=== PATIENT | female | born 1945 | race Hispanic/Latino ===

== ENCOUNTER 2017-03-02 08:19 | Inpatient (IN) | payer MEDICARE, MEDICAID ==
[~2017-03-02 08:19] MED LIST: Iopamidol 370 76% 100 ML VIAL ONE
[2017-03-02] MEDS ORDERED: Heparin 1000 UNIT/NS 500ML(OR) 1,000 ML ONE (08:30)
[2017-03-02 08:41] LABS: #Basophils 0.1 thou/uL (0.0-0.2); #Eosinphils 0.1 thou/uL (0.0-0.7); #Monocytes 0.9 thou/uL (0.11-0.59); #Neutrophils 14.2 thou/uL (1.40-6.50); %Basophils 0.4 % (0.0-1.0); %Eosinophils 0.6 % (0.0-10.0); %Lymphocytes 11.6 % (21.0-51.0); %Monocytes 5.4 % (0.0-10.0); Hematocrit 25.3 % (36.0-47.0); Mean Platelet Volume 8.2 fL (7.4-10.4); Red Blood Cell (RBC) Count 2.61 mill/uL (4.20-5.40); White Blood Cell (WBC) Count 17.4 thou/uL (4.8-10.8)
[2017-03-02] MEDS ORDERED: DOPamine 400 MG/D5W 250 ML 250 ML ONE (08:52)
[2017-03-02] MEDS ORDERED: Heparin 10,000 UNITS/1 ML VIAL ONE ×2 (08:52→09:53)
[2017-03-02] MEDS ORDERED: Heparin 1000 UNIT/NS 500ML(OR) 500 ML ONE (08:56)
[2017-03-02 09:07] LABS: ALT (SGPT) 9 U/L (8-55); AST (SGOT) 12 U/L (5-34); Alkaline Phosphatase 107 U/L (40-150); Anion Gap 19 mmol/L (10-20); BUN (Urea Nitrogen) 39 mg/dL (9.8-20.1); Bilirubin, Total 0.4 mg/dL (0.2-1.2); CK (CPK) 43 U/L (29-168); Calc. Creatinine Clearance 0 mL/min (70-130); Calcium 7.9 mg/dL (7.8-10.44); Carbon Dioxide 18 mmol/L (23-31); Chloride 107 mmol/L (98-107); Estimated GFR-MDRD 3; Globulin 2.4 g/dL (2.4-3.5); Protein, Total 5.1 g/dL (6.0-8.3)
[2017-03-02 09:11] LABS: Troponin I 0.098 ng/mL (< 0.028)
[2017-03-02] MEDS ORDERED: Aggrastat 12.5 MG/250 ML 250 ML ONE (09:12)
[2017-03-02] MEDS ORDERED: Clopidogrel Bisulfate 300 MG TAB ONE ×2 (09:16→10:04)
[2017-03-02] MEDS ORDERED: Ondansetron HCl/PF 4 MG/2 ML Vial ONE (09:27)
[2017-03-02] MEDS ORDERED: Morphine PF 1 MG/ML SYR IVP PRN (10:08)
[2017-03-02] MEDS ORDERED: Aggrastat 12.5 MG/250 ML 250 ML IVPB SCH (10:15)
[2017-03-02] MEDS ORDERED: DOPamine 400 MG/D5W 250 ML 250 ML IVPB SCH (10:30)
[2017-03-02] MEDS ORDERED: Insulin Regular 300 UNITS/3 ML VIAL SC PRN ×2 (11:13)
[2017-03-02] MEDS ORDERED: Dextrose 5% in Water 1,000 ML IV PRN (11:13)
[2017-03-02] MEDS ORDERED: Dextrose 50% Abboject 50 ML SYRINGE SLOW IVP PRN (11:13)
[2017-03-02] MEDS ORDERED: Clopidogrel Bisulfate 300 MG TAB PO SCH (12:00)
[2017-03-02] MEDS ORDERED: Metoprolol Tartrate 25 MG TAB PO SCH (13:00)
--- NOTE | 2017-03-02 14:07 | HP ---
HISTORY: [place] Schroeder is a 71-year-old female with end-stage renal disease on home peritoneal dialysis. She denies any previous cardiac problems or chest discomfort. This morning at 5:00 a.m., she got up to go to the bathroom and had onset of severe crushing left-sided chest pressure associated with diaphoresis, nausea, and vomiting, but no shortness of breath. Ultimately, she called paramedics and was found to have changes consistent with STEMI and has been transferred from [place] where she lives to [place]. En route, she was given 3600 units of heparin, aspirin 324 mg and a total of 3 liters of fluid due to hypotension. PAST MEDICAL HISTORY: Hypertension, diabetes, hypercholesterolemia, although she is on no cholesterol medicines that she can recall, diabetic gastroparesis, history of gluten intolerance, history of herpes zoster, prior CVA, cholecystectomy, and partial hysterectomy. MEDICATIONS: Glipizide 5 mg q.a.m., Renvela 3200 mg t.i.d., sertraline 100 daily, metoprolol 100 mg t.i.d., Sensipar 60 mg daily, Aspirin 81 qd. ALLERGIES: None. SOCIAL HISTORY: She does not smoke or drink. FAMILY HISTORY: She denies any history of coronary artery disease. REVIEW OF SYSTEMS: Twelve-point review of systems was otherwise unremarkable. PHYSICAL EXAMINATION: VITAL SIGNS: Blood pressure 110/70, pulse of 80. HEENT: PERRL. NECK: Supple. LUNGS: Chest is clear. CARDIAC: S1 and S2 are normal, without any S3, S4 or murmurs. Carotid upstrokes normal, without bruits. ABDOMEN: Normal bowel sounds, without tenderness or organomegaly. EXTREMITIES: Revealed no clubbing, cyanosis or edema. NEUROLOGIC: Grossly intact. SKIN: Warm and dry. LABORATORY DATA: EKG reveals sinus bradycardia with 2-[address] segment elevation in II, III, AVF, as well as [address] elevation in V4-V6. There is ST segment depression, downsloping ST segments in I, aVL and V2. Hemoglobin 8.3 , hematocrit 25.3, white count 17,400, platelets 259,000. Sodium 141, potassium 2.9, chloride 107, carbon dioxide 18, BUN 39, creatinine 13.13. Initial troponin I 0.098. IMPRESSION: 1. Inferoposterior lateral ST elevation myocardial infarction. 2. End-stage renal disease, patient received 3 liters of intravenous saline on the way to the hospital. 3. Hypertension. 4. Hypercholesterolemia. 5. History of cerebrovascular accident. PLAN: The situation was discussed with the patient. It was recommended that she undergo emergent catheterization. Risks of this were discussed including , myocardial infarction, dye reaction, vascular injury, CVA, transfusion, limb loss, renal failure, vascular injury, etc. Risks of stent placement were discussed including , myocardial infarction, emergent CABG, restenosis, stent thrombosis, vessel perforation, etc. Initially thought was given to placing a drug-eluting stent; however, patient has left main disease and will need to undergo bypass surgery and therefore in the labor and delivery registered nurse the decision was made to place a bare metal stent. CLAU
[2017-03-02] MEDS ORDERED: Potassium Chloride 10 MEQ TAB PO SCH ×2 (14:15→17:00)
--- NOTE | 2017-03-02 15:03 | RAD ---
CHEST 1 VIEW: HISTORY: Chest pain. FINDINGS: Cardiac silhouette is magnified by projection. Pulmonary vasculature is unremarkable. Mediastinum i s midline with aortic calcification. There is no lobar consolidation or evidence of pneumothorax. C ardiac monitor leads overlie the chest. IMPRESSION: Atherosclerosis. No acute cardiopulmonary abnormalities are demonstrated. POS: H
[2017-03-02 15:15] LABS: Troponin I 243.035 ng/mL (< 0.028)
[2017-03-02] MEDS ORDERED: Ondansetron ODT 4 MG TAB PO PRN (17:54)
[2017-03-02] MEDS: Ondansetron HCl/PF 4 MG/2 ML Vial IVP PRN (17:59)
--- NOTE | 2017-03-02 19:05 | PDOC.PN ---
- Subjective Encounter Start Date: 03/02/17 Encounter Start Time: 12:00 -: old records requested/rev Patient seen and examined. Consult for medical mngt. No CP/SOB. on PD per Dr Mercer. - Objective MAR Reviewed: Yes Vital Signs & Weight: Vital Signs (12 hours) Temp Pulse Resp Pulse Ox 03/02/17 16:00 98.9 F 03/02/17 12:00 98.7 F 03/02/17 10:53 97.9 F 85 18 96 Most Recent Monitor Data Heart Rate from ECG 61 NIBP 96/40 NIBP BP-Mean 53 Respiration from ECG 19 SpO2 100 I&O: 03/01/17 03/02/17 03/03/17 06:59 06:59 06:59 Intake Total 730 Balance 730 Result Diagrams: 03/03/17 02:22 03/03/17 02:22 Additional Labs: Accuchecks 03/02/17 03/02/17 17:02 11:38 POC Glucose 118 H 192 H Radiology Reviewed by me: Yes (CXR - no edema/infiltrate) EKG Reviewed by me: Yes (Tele SR) Phys Exam - Physical Examination Constitutional: NAD Neck: no nodes, no JVD Respiratory: no wheezing, no rales, no rhonchi, clear to auscultation bilateral Cardiovascular: RRR, no rub no heaves/pulsations Gastrointestinal: soft, non-tender, positive bowel sounds Musculoskeletal: no edema Neurological: non-focal, moves all 4 limbs Psychiatric: normal affect, A&O x 3 Dx/Plan - Plan DVT proph w/SCDs IMPRESSION 1. CAD s/p PR - on dual antiplatelet therapy/dopamine. Cardiology following 2. ESRD on PD - Dr Mercer aware, PD tonight 3. Hypokalemia 4. Hypotension/Cardiogenic shock from PR - on Dopamine 5. DM2 with diabetic gastroparesis. 6. h/o CVA - no residual deficits 7. HTN PLAN: * Nephrology consulted * CV consulted * Betablockers on hold due to hypotension * Replace Potassium * Add sliding scale * Add Zofran for N/V * Cont other meds as below * Full code. DPOA - family * Will follow. Thank you for this consultation. Review of Systems - Review of Systems Respiratory: negative: Cough, Dry, Shortness of Breath, Hemoptysis, SOB with Excertion, Pleuritic Pain, Sputum, Wheezing Cardiovascular: negative: Chest Pain, Palpitations, Orthopnea, Paroxysmal Noc. Dyspnea, Edema, Light Headedness Gastrointestinal: Nausea. negative: Vomiting, Abdominal Pain, Diarrhea, Constipation, Melena, Hematochezia - Medications/Allergies Allergies/Adverse Reactions: Allergies Allergy/AdvReac Type Severity Reaction Status Date / Time No Known Allergies Allergy Verified 08/01/16 21:37 Medications: Current Medications Aspirin (Aspirin Chewable) 81 mg PO DAILY [facility] Cinacalcet (Sensipar) 60 mg PO DAILY [facility] Clopidogrel Bisulfate (Plavix) 75 mg PO DAILY [facility] Dextrose/Water (Dextrose 50%) 25 gm SLOW IVP PRN PRN PRN Reason: Hypoglycemia Glucagon (Glucagon) 1 mg IM PRN PRN PRN Reason: Hypoglycemia Tirofiban/Sodium Chloride (Aggrastat 12.5 Mg/250 Ml) 250 mls @ 0 mls/hr IVPB INF DESIREE; As Directed PRN Reason: Protocol Stop: 03/03/17 09:00 Dopamine HCl/Dextrose (Dopamine/D5w) 250 mls @ 6.019 mls/hr IVPB INF DESIREE; 2.5 MCG/KG/MIN PRN Reason: Protocol Dextrose/Water (D5w) 1,000 mls @ 0 mls/hr IV .Q0M PRN; As Directed PRN Reason: Hypoglycemia Insulin Human Regular (Humulin R) 0 units SC .MILD SLIDING SCALE PRN PRN Reason: Mild Correctional Scale Insulin Human Regular (Humulin R) 0 units SC .BEDTIME SLIDING SC PRN PRN Reason: Bedtime Correctional Scale Metoprolol Tartrate (Lopressor) 50 mg PO BID [facility] Morphine Sulfate (Duramorph) 2 mg IVP Q4H PRN PRN Reason: Moderate Pain (4-6) Last Admin: 03/02/17 15:51 Dose: 2 mg Ondansetron HCl (Zofran Odt) 4 mg PO Q6H PRN PRN Reason: Nausea/Vomiting Ondansetron HCl (Zofran) 4 mg IVP Q6H PRN PRN Reason: Nausea/Vomiting Last Admin: 03/02/17 17:59 Dose: 4 mg Potassium Chloride (Klor-Con 10) 10 meq PO BID[facility] Stop: 03/04/17 17:01 Last Admin: 03/02/17 17:51 Dose: 10 meq Sertraline HCl (Zoloft) 100 mg PO DAILY [facility] Sodium Chloride (Flush - Normal Saline) 10 ml IVF Q12HR [facility] Sodium Chloride (Flush - Normal Saline) 10 ml IVF PRN PRN PRN Reason: Saline Flush
--- NOTE | 2017-03-02 20:53 | CON ---
DATE OF CONSULTATION: 03/02/2017 HISTORY OF PRESENT ILLNESS: This is a pleasant 71-year-old female who had the onset of chest discomf ort about 5:00 this morning. She states that the ambulance picked her up about 7:00 a.m. and she was brought straight to the landscape laborer where she was found to have a complete occlusion of the mid right c oronary artery and underwent extensive stenting of the main right coronary artery with bare metal shakeel nt. Residual included posterolateral with occlusion and a PDA with a high-grade stenosis. She was f ound to have an ostial left main with relatively normal coronary anatomy otherwise. PAST MEDICAL HISTORY: Diabetes mellitus, end-stage renal disease, hypertension and dyslipidemia. PAST SURGICAL HISTORY: Peritoneal dialysis catheter placement, upper and lower endoscopy, tonsillect fredo, cholecystectomy and hysterectomy. PAST MEDICAL HISTORY: Otherwise includes irritable bowel syndrome, herpes zoster, CVA with right fac ial droop, diabetic gastroparesis, hyperlipidemia, hypertension, type 2 diabetes mellitus and end-sta ge renal disease x6 years. SOCIAL HISTORY: She is a nonsmoker. MEDICATIONS: Prior to admission include aspirin 1 a day, Plavix 75 a day, Zoloft 100 mg a day, Renve la 3200 mg t.i.d., vitamin D3 2000 units a day, multivitamins 1 a day, metoprolol long acting 100 mg a day, lactulose 10 mg daily and glipizide XL 5 mg every morning. ALLERGIES: None known. PHYSICAL EXAMINATION: VITAL SIGNS: Recorded height of 4 foot 11 inches, recorded weight of 140 pounds. Heart rate 71, blo od pressure 148 with infusion of Aggrastat being given currently. NECK: No carotid bruits. LUNGS: Clear to auscultation. CARDIAC: Regular rate and rhythm. No murmurs. ABDOMEN: Soft and nontender. PD catheter in place. EXTREMITIES: She has IV in her left ankle as well as 2 puncture sites in the right ankle with palpab le left dorsalis pedis and bilateral popliteal pulses. I do not appreciate pedal pulses in the right foot. ASSESSMENT AND PLAN: The patient may benefit at some point in the future with grafts to the LAD, ezra gonal PDA. At this time, her echo is pending for an ejection fraction assessment and enzymes are als o pending. We will discuss with Dr. Mercer in regards to management of her peritoneal dialysis if surgi wayne intervention is entertained. At this time, I would not proceed with any intervention this week. Consider optimal perhaps a month of antiplatelet agents and then stopping that for 5 days prior to s urgical intervention.
[2017-03-02] MEDS ORDERED: Metoprolol Tartrate 50 MG TAB PO SCH (21:00)
--- NOTE | 2017-03-02 21:09 | CCL ---
CARDIAC CATHETERIZATION REPORT: Date: 03/02/17 PROCEDURE: Selective coronary arteriography, PTCA and stent placement to right coronary artery from the distal right coronary artery to the ostium, PTCA of the right KANDIS. INDICATION: Inferoposterolateral STEMI. DETAILS: The patient was brought to cardiac catheterization lab from the emergency room. The right groin was prepped and draped in usual manner. 1% lidocaine was infiltrated. A Wholey wire was used to place a 6 Syrian sheath. She previously was given 3600 units of heparin and ACT was obtained. The patient was given heparin during the procedure to eventually obtain an ACT of greater than 300. During the procedure, Aggrastat was also started for probable distal embolic event to the posterolateral artery. A 6 Syrian Mark left-4 views for left coronary arteriography. A 6 Syrian Mark right-4 guide was inserted for right coronary arteriography. There was dampening of the pressure waveform and the right-4 guide was removed and a 6 Syrian right-4 guide with side holes was inserted. Floppy Choice wire was advanced to the distal right posterior descending. An Emerge 2.5 x 15 mm balloon was then used to PTCA the subtotally occluded area in the mid right coronary artery as well as the distal right coronary artery and the ostium. Dopamine 10 mcg/minute was started for hypotension. A Rebel 3.0 x 20 mm stent was inserted in the distal right coronary artery and deployed. This was then followed by a Rebel 3.0 x 24 mm overlapping the previous stent and was deployed. The patient had nausea and vomiting, and Zofran 4 mg was given intravenously. Rebel 3.0 x 32 mm stent was then again inserted, but would not advance properly. This was removed and a Rebel 3.0 x 16 mm stent was then positioned and deployed. Following this, a Rebel 3.5 x16 mm stent was then positioned and deployed at the ostium. During the case, the posterolateral artery was lost and it was felt there was probably embolic debris to this area. This vessel was then wired and Emerge 2.0 x 15 mm balloon was then inserted into the area, with shinto of flow. There continued to be significant right posterior descending and right posterolateral artery stenosis; however, with the left main disease, it was felt that these areas could be bypassed. Sheath was sutured in place. The patient was transferred to the CCU. RESULTS: 1. Left main had a 50% stenosis at the ostium with a 20 mm pressure dampening. 2. The LAD had a 30% proximal stenosis and a 20% mid stenosis. 3. The circumflex was normal. 4. The right coronary artery had a 60% proximal, 95% mid, and 90% distal stenosis. The right posterior descending artery had a 70% stenosis and the right posterolateral artery had a 70% stenosis. INTERVENTION RESULTS: 1. The distal right coronary artery was reduced from 90% to 0%. 2. The mid RCA was reduced from 95% to 0%. 3. The proximal RCA was reduced from 60% to 0%. 4. Initially, there was SARAH 1 flow, and at the conclusion of the procedure, there was SARAH 3 flow. 5. The right posterolateral was occluded during the procedure, presumably embolic thrombus. Aggrastat was started and the area was angioplastied with reduction from 100% to 60%. IMPRESSION: 1. Left main plus one vessel coronary artery disease (RCA). 2. Successful stent placement in the distal to the ostium of the RCA. 3. PTCA of the right posterolateral artery. CLAU
[2017-03-02 21:20] LABS: Critical Call CKMBM RESULT DECREASING
[2017-03-02 22:36] LABS: Troponin I 203.132 ng/mL (< 0.028)
[2017-03-03 02:30] LABS: #Basophils 0.1 thou/uL (0.0-0.2); #Eosinphils 0.1 thou/uL (0.0-0.7); #Lymphocytes 2.2 thou/uL (1.20-3.40); #Monocytes 0.8 thou/uL (0.11-0.59); #Neutrophils 9.4 thou/uL (1.40-6.50); %Basophils 0.4 % (0.0-1.0); %Eosinophils 0.9 % (0.0-10.0); %Lymphocytes 17.4 % (21.0-51.0); %Monocytes 6.5 % (0.0-10.0); Hematocrit 24.2 % (36.0-47.0); Red Blood Cell (RBC) Count 2.47 mill/uL (4.20-5.40); White Blood Cell (WBC) Count 12.6 thou/uL (4.8-10.8)
[2017-03-03 02:49] LABS: Critical Call CKMBM RESULT DECREASING
[2017-03-03 03:10] LABS: ALT (SGPT) 33 U/L (8-55); AST (SGOT) 139 U/L (5-34); Alkaline Phosphatase 103 U/L (40-150); Anion Gap 18 mmol/L (10-20); BUN (Urea Nitrogen) 41 mg/dL (9.8-20.1); Bilirubin, Total 0.5 mg/dL (0.2-1.2); Calc. Creatinine Clearance 4 mL/min (70-130); Calcium 8.8 mg/dL (7.8-10.44); Carbon Dioxide 20 mmol/L (23-31); Chloride 101 mmol/L (98-107); Estimated GFR-MDRD 3; Globulin 2.7 g/dL (2.4-3.5); Protein, Total 5.8 g/dL (6.0-8.3)
[2017-03-03 03:13] LABS: Critical Call Chem Troponin I RESULT DECREASING; Troponin I 191.045 ng/mL (< 0.028)
[2017-03-03] MEDS ORDERED: Epoetin (ESRD) 20,000 UNITS/ML SC SCH (09:00)
[2017-03-03] MEDS ORDERED: Cinacalcet HCl 30 MG TAB PO SCH (09:00)
--- NOTE | 2017-03-03 10:21 | CON ---
DATE OF CONSULTATION: 03/03/2017 HISTORY: Ms. Schroeder is a 71-year-old female with end-stage renal disease and currently on kellee e peritoneal dialysis. She was admitted for an acute myocardial infarction. She underwent an emerge nt cardiac catheterization with intervention. Since the said procedure she is doing better. She den ies any chest pain at the present time. She is somewhat teary-eyed and is wanting to go home. Please note this patient has a history of depression. REVIEW OF SYSTEMS: Chest pain, no shortness of breath, no nausea, no vomiting, no abdominal pain, no diarrhea, no constipation. No productive cough. No headache, no syncopal episode. No fever or chi lls. Her energy level is decreased. No gross hematuria. No dysuria, no urinary frequency. MEDICATIONS: Currently on Lipitor 20 mg at bedtime, aspirin 81 mg daily, Sensipar 60 daily, Plavix 7 5 mg once a day, Dopamine drip as directed. Humulin R sliding scale, Lopressor 25 mg p.o. b.i.d., mo rphine sulfate 2 mg IV q.4h. p.r.n., Zofran 4 mg IV q.6h., Zoloft 100 mg p.o. daily, Aggrastat as dir ected. PAST MEDICAL HISTORY: 1. ESRD - secondary to a presumed diabetic nephropathy, currently on a CCPD regimen. 2. Type 2 diabetes mellitus. 3. Recently status post myocardial infarction. 4. Coronary artery disease status. 5. Hyperlipidemia. 6. Hypertension. 7. Irritable bowel syndrome. 8. Status post right facial droop. 9. Diabetic gastroparesis. PAST SURGICAL HISTORY: 1. Status post cardiac catheterization with coronary stent placement. 2. Status post upper and lower GI endoscopy. 3. Status post laparoscopic cholecystectomy. 4. Status post PD catheter placement. 5. Status post tonsillectomy. 6. Status post hysterectomy secondary to dysfunctional uterine bleeding. ALLERGIES: None. TRAUMA: None. IMMUNIZATIONS: Up to date. HOSPITALIZATIONS: Please see past medical history. SOCIAL HISTORY: The patient lives alone. She lives in [place]. She is , 4 children. No hi story of smoking, no alcohol intake, sedentary lifestyle. Status post blood transfusion. No IV drug abuse. FAMILY HISTORY: No family history of ESRD. PHYSICAL EXAMINATION: VITAL SIGNS: Blood pressure 113/56, heart rate 65, respiratory rate 9, pulse ox 94%. GENERAL: Awake, alert, comfortable, not in overt distress. SKIN: Adequate turgor. HEENT: Pale conjunctivae, anicteric sclerae. NECK: No neck mass, no carotid bruits, no JVD. CHEST: No deformities. LUNGS: Clear breath sounds. No wheezing, no crackles. HEART: Normal sinus rhythm. No murmur, no gallops, no rubs. ABDOMEN: Globular, soft, nontender, no masses. EXTREMITIES: No edema, no deformities. Please note she has a peritoneal dialysis catheter. NEUROLOGIC: Awake, oriented, moving all extremities. No tremors, no asterixis. LABORATORY: 03/03/2017 - White count 12.6, hemoglobin 8.1, sodium 135, potassium 3.6, chloride 101, carbon dioxide 20, BUN 41, creatinine 13.4, glucose 108, calcium 8.8, AST 139, ALT 33. Troponin I 19 1. ASSESSMENT AND PLAN: 1. Status post myocardial infarction - status post cardiac catheterization with coronary interventio n. Stable. Cardiology is following. 2. End-stage renal disease, stable. We will continue current continuous cycling peritoneal dialysis regimen. I have followed the same peritoneal dialysis regimen which we do as an outpatient. Review of the last Kt/V suggests this patient is adequately dialyzed with the current PD regimen. 3. Depression. Continuing Zoloft. 4. Anemia. Start Epogen 7500 units subcutaneously every week. P.r.n. blood transfusion. I agree with current management.
[2017-03-03] MEDS: Metoprolol Tartrate 25 MG TAB PO SCH ×2 (10:35→20:15)
[2017-03-03] MEDS: Clopidogrel Bisulfate 75 MG TAB PO SCH (10:36)
[2017-03-03] MEDS: Ondansetron HCl/PF 4 MG/2 ML Vial IVP PRN (14:01)
[2017-03-03] MEDS ORDERED: Calcium Carbonate 500 MG ChewTAB PO PRN (14:43)
--- NOTE | 2017-03-03 15:00 | ULT ---
BILATERAL CAROTID DUPLEX ULTRASOUND: Date: 03/03/17 HISTORY: CVA> FINDINGS: Rodriguez scale, color flow, Doppler evaluation, and spectral analysis of the bilateral carotid arteries i s performed with 2D imaging. There is atherosclerotic plaque seen within the bilateral common carotid arteries with calcified athe rosclerotic plaque seen in the region of the carotid bulbs and proximal internal carotid arteries juanito aterally. There is moderate (50-69%) stenosis involving the left internal carotid artery, primarily based on th e peak systolic velocity of 152.2 second. The left ICA/CCA ratio is 1.45. There is less than 50% maximal stenosis in the right internal carotid artery based on the peak systol ic velocity of 112 cm/second and an ICA/CCA ratio of 1.0. Peak systolic velocity in the left ICA has increased when compared to the prior study on 12/11/15. Antegrade flow is demonstrated in the vertebral arteries bilaterally. IMPRESSION: 1. Moderate (50-69%) stenosis involving the left internal carotid artery. 2. No hemodynamically significant stenosis in the right internal carotid artery. POS: [facility]
--- NOTE | 2017-03-03 15:48 | PDOC.PN ---
- Subjective Encounter Start Date: 03/03/17 Encounter Start Time: 14:00 Patient seen and examined. Nausea/heartburn +. No overnight events. No CP/SOB. - Objective MAR Reviewed: Yes Vital Signs & Weight: Vital Signs (12 hours) Temp Pulse Pulse Pulse Resp BP BP 03/03/17 12:00 98.4 F 03/03/17 09:50 68 68 100/48 L 108/50 L 03/03/17 08:00 98.6 F 65 18 03/03/17 07:00 98.6 F 03/03/17 04:00 98.6 F Pulse Ox Pulse Ox Pulse Ox 03/03/17 12:00 03/03/17 09:50 92 L 94 L 03/03/17 08:00 94 L 03/03/17 07:00 03/03/17 04:00 Most Recent Monitor Data Heart Rate from ECG 79 NIBP 132/85 NIBP BP-Mean 103 Respiration from ECG 16 SpO2 99 I&O: 03/02/17 03/03/17 03/04/17 06:59 06:59 06:59 Intake Total 1488 1020 Output Total 0 0 Balance 1488 1020 Result Diagrams: 03/03/17 02:22 03/03/17 02:22 Additional Labs: Accuchecks 03/03/17 03/02/17 03/02/17 06:15 21:25 17:02 POC Glucose 127 H 116 H 118 H EKG Reviewed by me: Yes (Tele SR) Dx/Plan - Plan DVT proph w/SCDs IMPRESSION 1. CAD s/p AR - on dual antiplatelet therapy/betablockers. Cardiology following 2. ESRD on PD 3. Hypokalemia - replaced 4. Hypotension/Cardiogenic shock from AR - off Dopamine 5. DM2 with diabetic gastroparesis. on sliding scale 6. h/o CVA - no residual deficits 7. HTN 8. Mod Left ICA stenosis PLAN: * Nephrology/Cardiology following * Not a candidate for ACEI due to renal dysfuntion * Cont sliding scale * Add PRN Tums * Cont Zofran * Cont other meds as below Review of Systems - Review of Systems Constitutional: negative: Fever, Chills, Sweats, Weakness, Malaise Respiratory: negative: Cough, Dry, Shortness of Breath, Hemoptysis, SOB with Excertion, Pleuritic Pain, Sputum, Wheezing Cardiovascular: negative: Chest Pain, Palpitations, Orthopnea, Paroxysmal Noc. Dyspnea, Edema, Light Headedness - Medications/Allergies Allergies/Adverse Reactions: Allergies Allergy/AdvReac Type Severity Reaction Status Date / Time No Known Allergies Allergy Verified 08/01/16 21:37 Medications: Current Medications Aspirin (Aspirin Chewable) 81 mg PO DAILY [facility] Last Admin: 03/03/17 10:36 Dose: 81 mg Atorvastatin Calcium (Lipitor) 20 mg PO HS [facility] Calcium Carbonate (Tums) 1,000 mg PO Q4H PRN PRN Reason: Heartburn or Indigestion Cinacalcet (Sensipar) 60 mg PO DAILY [facility] Last Admin: 03/03/17 10:36 Dose: 60 mg Clopidogrel Bisulfate (Plavix) 75 mg PO DAILY [facility] Last Admin: 03/03/17 10:36 Dose: 75 mg Dextrose/Water (Dextrose 50%) 25 gm SLOW IVP PRN PRN PRN Reason: Hypoglycemia Epoetin Valdemar (Procrit) 7,500 units SC Q7D [facility] Last Admin: 03/03/17 13:56 Dose: 7,500 units Famotidine (Pepcid) 20 mg PO BID [facility] Glucagon (Glucagon) 1 mg IM PRN PRN PRN Reason: Hypoglycemia Dopamine HCl/Dextrose (Dopamine/D5w) 250 mls @ 6.019 mls/hr IVPB INF DESIREE; 2.5 MCG/KG/MIN PRN Reason: Protocol Dextrose/Water (D5w) 1,000 mls @ 0 mls/hr IV .Q0M PRN; As Directed PRN Reason: Hypoglycemia Insulin Human Regular (Humulin R) 0 units SC .MILD SLIDING SCALE PRN PRN Reason: Mild Correctional Scale Insulin Human Regular (Humulin R) 0 units SC .BEDTIME SLIDING SC PRN PRN Reason: Bedtime Correctional Scale Metoprolol Tartrate (Lopressor) 25 mg PO BID [facility] Last Admin: 03/03/17 10:35 Dose: 25 mg Morphine Sulfate (Duramorph) 2 mg IVP Q4H PRN PRN Reason: Moderate Pain (4-6) Last Admin: 03/02/17 15:51 Dose: 2 mg Ondansetron HCl (Zofran Odt) 4 mg PO Q6H PRN PRN Reason: Nausea/Vomiting Ondansetron HCl (Zofran) 4 mg IVP Q6H PRN PRN Reason: Nausea/Vomiting Last Admin: 03/03/17 14:01 Dose: 4 mg Sertraline HCl (Zoloft) 100 mg PO DAILY [facility] Last Admin: 03/03/17 10:35 Dose: 100 mg Sodium Chloride (Flush - Normal Saline) 10 ml IVF Q12HR [facility] Last Admin: 03/03/17 10:38 Dose: 10 ml Sodium Chloride (Flush - Normal Saline) 10 ml IVF PRN PRN PRN Reason: Saline Flush
[2017-03-03] MEDS: Atorvastatin Calcium 20 MG TAB PO SCH (20:15)
[2017-03-03] MEDS: Famotidine 20 MG TAB PO SCH (20:15)
[2017-03-04 04:24] LABS: Anion Gap 17 mmol/L (10-20); BUN (Urea Nitrogen) 40 mg/dL (9.8-20.1); BUN/Creatinine Ratio 3.03; Calc. Creatinine Clearance 4 mL/min (70-130); Calcium 7.7 mg/dL (7.8-10.44); Carbon Dioxide 23 mmol/L (23-31); Chloride 99 mmol/L (98-107); Estimated GFR-MDRD 3
[2017-03-04 04:43] LABS: Hematocrit 21.2 % (36.0-47.0)
--- NOTE | 2017-03-04 09:13 | PRG ---
DATE OF SERVICE: 03/04/2017 SERVICE: Renal Medicine. SUBJECTIVE: Ms. Schroeder is a 71-year-old female with ESRD - currently on CCPD regimen, and adm itted for chest pain. She was noted to have RI and underwent cardiac catheterization with coronary a rtery stent placement. This morning, she is feeling better, no complaints of chest pain or shortness of breath. OBJECTIVE: VITAL SIGNS: Blood pressure is 98/45, heart rate is 59, respiratory rate 16, pulse ox 99%. GENERAL: Awake, sitting comfortable, not in distress. SKIN: Adequate turgor. HEENT: Slightly pale conjunctivae, anicteric sclerae. NECK: No neck mass, no carotid bruits. No JVD. CHEST: No deformities. LUNGS: Decreased breath sounds. No wheezing, no crackles. HEART: Normal sinus rhythm. No murmur, no gallops or rubs. ABDOMEN: Globular, soft, nontender. Positive for PD catheter. EXTREMITIES: No edema. MEDICATIONS: Of 03/04/2017 was reviewed. LABORATORY DATA: Of 03/04/2017, hemoglobin 7.1. Sodium 136, potassium 3.3, chloride 99, carbon diox leti 23, BUN 40, creatinine 13, glucose 93, calcium 7.7, phosphorus 6.0. ASSESSMENT AND PLAN: 1. Anemia. Continue weekly Epogen. We will do a p.r.n. blood transfusion with this patient. 2. Coronary artery disease/status post myocardial infarction, stable, asymptomatic, status post card iac catheterization with coronary artery stent placement. 3. End-stage renal disease, stable. Tolerating current continuous cycling peritoneal dialysis regim en. I agree with current management. 4. Hyperphosphatemia/hypocalcemia. We will hold off the Sensipar - start PhosLo 667 mg 1 tab t.i.d. with meals.
[2017-03-04] MEDS: Potassium Chloride 10 MEQ TAB PO SCH ×2 (09:35→12:13)
[2017-03-04] MEDS: Clopidogrel Bisulfate 75 MG TAB PO SCH (09:36)
[2017-03-04] MEDS: Metoprolol Tartrate 25 MG TAB PO SCH ×2 (09:36→20:03)
[2017-03-04] MEDS: Famotidine 20 MG TAB PO SCH ×2 (10:19→20:03)
[2017-03-04] MEDS: Calcium Acetate 667 MG CAP PO SCH ×2 (12:13→17:33)
[2017-03-04] MEDS: Sevelamer Carbonate 800 MG TAB PO SCH (17:32)
--- NOTE | 2017-03-04 18:17 | PDOC.PN ---
- Subjective Encounter Start Date: 03/04/17 Encounter Start Time: 16:00 Patient seen and examined. No new complaints. No overnight events. No CP - Objective MAR Reviewed: Yes Vital Signs & Weight: Vital Signs (12 hours) Temp Pulse Pulse Resp BP BP Pulse Ox 03/04/17 15:50 98.0 F 68 16 115/63 95 03/04/17 14:23 98.9 F 67 18 110/51 L 98 03/04/17 12:00 98.2 F 03/04/17 10:00 99 F 64 20 88/37 L 96 03/04/17 09:57 98.9 F 65 22 H 93/45 L 96 03/04/17 08:00 99 F 59 L 17 100 03/04/17 07:30 100 03/04/17 07:00 98.7 F Weight Weight 141 lb 8.588 oz Most Recent Monitor Data Heart Rate from ECG 65 NIBP 111/55 NIBP BP-Mean 62 Respiration from ECG 19 SpO2 100 I&O: 03/03/17 03/04/17 03/05/17 06:59 06:59 06:59 Intake Total 1488 1370 930 Output Total 0 0 Balance 1488 1370 930 Result Diagrams: 03/04/17 03:21 03/04/17 03:21 Additional Labs: Accuchecks 03/04/17 03/04/17 03/04/17 17:31 12:20 05:18 POC Glucose 94 102 111 H 03/03/17 21:24 POC Glucose 123 H EKG Reviewed by me: Yes (Tele SR) Phys Exam - Physical Examination Constitutional: NAD Respiratory: no wheezing, no rhonchi Cardiovascular: RRR, no rub Gastrointestinal: soft, non-tender, positive bowel sounds Musculoskeletal: no edema Neurological: non-focal, moves all 4 limbs Dx/Plan - Plan DVT proph w/SCDs IMPRESSION 1. CAD s/p [place] - on dual antiplatelet therapy/betablockers. 2. ESRD on [place] - Nephrology following 3. Hypokalemia 4. Hypotension/Cardiogenic shock from [place] - resolved - off Dopamine 5. DM2 with diabetic gastroparesis. on sliding scale 6. h/o CVA - no residual deficits 7. HTN 8. Mod Left ICA stenosis 9. Anemia - prob due to renal disease PLAN: * Replace Potassium * Resume Renvela * Cardiology following * Not a candidate for ACEI due to renal dysfuntion * Cont sliding scale * Cont other meds as below Review of Systems - Review of Systems Respiratory: negative: Cough, Dry, Shortness of Breath, Hemoptysis, SOB with Excertion, Pleuritic Pain, Sputum, Wheezing Cardiovascular: negative: Chest Pain, Palpitations, Orthopnea, Paroxysmal Noc. Dyspnea, Edema, Light Headedness Gastrointestinal: negative: Nausea, Vomiting, Abdominal Pain, Diarrhea, Constipation, Melena, Hematochezia, Other - Medications/Allergies Allergies/Adverse Reactions: Allergies Allergy/AdvReac Type Severity Reaction Status Date / Time No Known Allergies Allergy Verified 08/01/16 21:37 Medications: Current Medications Aspirin (Aspirin Chewable) 81 mg PO DAILY [facility] Last Admin: 03/04/17 09:36 Dose: 81 mg Atorvastatin Calcium (Lipitor) 20 mg PO HS [facility] Last Admin: 03/03/17 20:15 Dose: 20 mg Calcium Acetate (Phoslo) 1,334 mg PO TID-WM [facility] Last Admin: 03/04/17 17:33 Dose: 1,334 mg Calcium Carbonate (Tums) 1,000 mg PO Q4H PRN PRN Reason: Heartburn or Indigestion Last Admin: 03/04/17 10:24 Dose: 1,000 mg Clopidogrel Bisulfate (Plavix) 75 mg PO DAILY [facility] Last Admin: 03/04/17 09:36 Dose: 75 mg Dextrose/Water (Dextrose 50%) 25 gm SLOW IVP PRN PRN PRN Reason: Hypoglycemia Epoetin Valdemar (Procrit) 7,500 units SC Q7D [facility] Last Admin: 03/03/17 13:56 Dose: 7,500 units Famotidine (Pepcid) 20 mg PO 2100 [facility] Glucagon (Glucagon) 1 mg IM PRN PRN PRN Reason: Hypoglycemia Dextrose/Water (D5w) 1,000 mls @ 0 mls/hr IV .Q0M PRN; As Directed PRN Reason: Hypoglycemia Insulin Human Regular (Humulin R) 0 units SC .MILD SLIDING SCALE PRN PRN Reason: Mild Correctional Scale Insulin Human Regular (Humulin R) 0 units SC .BEDTIME SLIDING SC PRN PRN Reason: Bedtime Correctional Scale Metoprolol Tartrate (Lopressor) 25 mg PO BID [facility] Last Admin: 03/04/17 09:36 Dose: Not Given Morphine Sulfate (Duramorph) 2 mg IVP Q4H PRN PRN Reason: Moderate Pain (4-6) Last Admin: 03/02/17 15:51 Dose: 2 mg Ondansetron HCl (Zofran Odt) 4 mg PO Q6H PRN PRN Reason: Nausea/Vomiting Ondansetron HCl (Zofran) 4 mg IVP Q6H PRN PRN Reason: Nausea/Vomiting Last Admin: 03/03/17 14:01 Dose: 4 mg Sertraline HCl (Zoloft) 100 mg PO DAILY [facility] Last Admin: 03/04/17 09:36 Dose: 100 mg Sevelamer Carbonate (Renvela) 3,200 mg PO TID-WM [facility] Last Admin: 03/04/17 17:32 Dose: 3,200 mg Sodium Chloride (Flush - Normal Saline) 10 ml IVF Q12HR [facility] Last Admin: 03/04/17 09:38 Dose: 10 ml Sodium Chloride (Flush - Normal Saline) 10 ml IVF PRN PRN PRN Reason: Saline Flush
[2017-03-04] MEDS: Atorvastatin Calcium 20 MG TAB PO SCH (20:03)
[2017-03-05 04:48] LABS: Hematocrit 24.3 % (36.0-47.0)
[2017-03-05 05:55] VITALS: BMI 28.6
[2017-03-05] MEDS: Calcium Acetate 667 MG CAP PO SCH ×3 (07:58→17:05)
[2017-03-05] MEDS: Sevelamer Carbonate 800 MG TAB PO SCH ×3 (07:59→17:05)
[2017-03-05] MEDS: Metoprolol Tartrate 25 MG TAB PO SCH ×2 (08:11→22:42)
--- NOTE | 2017-03-05 09:06 | PRG ---
DATE OF SERVICE: 03/05/2017 SERVICE: Renal Medicine. SUBJECTIVE: Ms. Schroeder is a 71-year-old ESRD patient, who was admitted for chest pain secondary to acu te [place]. She underwent a cardiac cath with coronary stent placement. We are following up this patient for maintenance CCPD. She is tolerating the current nocturnal peritoneal dialysis. Please note, ciarra walker is due for an upper GI endoscopy this morning. No complaints of chest pain or shortness of breath. OBJECTIVE: VITAL SIGNS: Blood pressure 134/68, heart rate 70, respiratory rate 20, temperature 98.7, pulse ox 9 3%. GENERAL EXAM: Awake, supine, comfortable, not in distress. SKIN: Adequate turgor. HEENT: Patient has slightly pale conjunctivae. Anicteric sclerae. NECK: No neck mass, no carotid bruits, no JVD. CHEST: No deformities. LUNGS: Clear breath sounds. No wheezing, no crackles. HEART: Normal sinus rhythm. No murmur, no gallops, and no rubs. ABDOMEN: Globular, soft, nontender. No masses. EXTREMITIES: No edema. MEDICATIONS: Medications of 03/05/2017 reviewed. LABORATORY DATA: Laboratories of 03/05/2017, glucose 122, hemoglobin 8.2; 03/04/2017, potassium 3.3. ASSESSMENT AND PLAN: 1. End-stage renal disease, stable. Continue current continuous cycling peritoneal dialysis regimen . Tolerating said treatment. Tolerating ultrafiltration. No changes to be made with the current pe ritoneal dialysis regimen. 2. Anemia. Continue weekly Epogen, status post blood transfusion, for upper GI endoscopy. 3. Coronary artery disease, status post myocardial infarction. Continue supportive care. Status po st cardiac catheterization/coronary artery stent placement. Cardiology is following. Recheck basic metabolic panel and CBC in a.m.
--- NOTE | 2017-03-05 10:13 | PDOC.PN ---
- Subjective Encounter Start Date: 03/05/17 Encounter Start Time: 09:30 Patient seen and examined. No new complaints. No overnight events - Objective MAR Reviewed: Yes Vital Signs & Weight: Vital Signs (12 hours) Temp Pulse Resp BP Pulse Ox 03/05/17 04:00 98.7 F 70 20 134/68 93 L 03/05/17 01:02 100 Weight Weight 142 lb Most Recent Monitor Data Heart Rate from ECG 65 NIBP 111/55 NIBP BP-Mean 62 Respiration from ECG 19 SpO2 100 I&O: 03/04/17 03/05/17 03/06/17 06:59 06:59 06:59 Intake Total 1370 1410 Output Total 0 0 Balance 1370 1410 Result Diagrams: 03/05/17 04:02 03/05/17 04:02 Additional Labs: Accuchecks 03/05/17 03/04/17 03/04/17 06:23 20:16 17:31 POC Glucose 122 H 154 H 94 03/04/17 12:20 POC Glucose 102 EKG Reviewed by me: Yes (Tele SR) Phys Exam - Physical Examination Constitutional: NAD Respiratory: no wheezing, no rhonchi Cardiovascular: RRR, no rub Gastrointestinal: soft, non-tender, positive bowel sounds Musculoskeletal: no edema Neurological: moves all 4 limbs Dx/Plan - Plan DVT proph w/SCDs IMPRESSION 1. CAD s/p STEMI - on dual antiplatelet therapy/betablockers. 2. ESRD on PD 3. Hypokalemia - replaced 4. Hypotension/Cardiogenic shock from [place] - resolved - off Dopamine 5. DM2 with diabetic gastroparesis. on sliding scale 6. h/o CVA - no residual deficits 7. HTN 8. Mod Left ICA stenosis 9. Anemia - prob due to renal disease 10. Mod-sev MR PLAN: * SARMAD to assess MR * Resume Renvela * Cardiology/ Nephrology following * Not a candidate for ACEI due to renal dysfuntion * Cont other meds as below Review of Systems - Review of Systems Respiratory: negative: Cough, Dry, Shortness of Breath, Hemoptysis, SOB with Excertion, Pleuritic Pain, Sputum, Wheezing Cardiovascular: negative: Chest Pain, Palpitations, Orthopnea, Paroxysmal Noc. Dyspnea, Edema, Light Headedness - Medications/Allergies Allergies/Adverse Reactions: Allergies Allergy/AdvReac Type Severity Reaction Status Date / Time No Known Allergies Allergy Verified 08/01/16 21:37 Medications: Current Medications Aspirin (Aspirin Chewable) 81 mg PO DAILY [facility] Last Admin: 03/04/17 09:36 Dose: 81 mg Atorvastatin Calcium (Lipitor) 20 mg PO HS [facility] Last Admin: 03/04/17 20:03 Dose: 20 mg Calcium Acetate (Phoslo) 1,334 mg PO TID-WM [facility] Last Admin: 03/05/17 07:58 Dose: Not Given Calcium Carbonate (Tums) 1,000 mg PO Q4H PRN PRN Reason: Heartburn or Indigestion Last Admin: 03/04/17 10:24 Dose: 1,000 mg Clopidogrel Bisulfate (Plavix) 75 mg PO DAILY [facility] Last Admin: 03/04/17 09:36 Dose: 75 mg Dextrose/Water (Dextrose 50%) 25 gm SLOW IVP PRN PRN PRN Reason: Hypoglycemia Epoetin Valdemar (Procrit) 7,500 units SC Q7D [facility] Last Admin: 03/03/17 13:56 Dose: 7,500 units Famotidine (Pepcid) 20 mg PO 2100 [facility] Last Admin: 03/04/17 20:03 Dose: 20 mg Glucagon (Glucagon) 1 mg IM PRN PRN PRN Reason: Hypoglycemia Dextrose/Water (D5w) 1,000 mls @ 0 mls/hr IV .Q0M PRN; As Directed PRN Reason: Hypoglycemia Insulin Human Regular (Humulin R) 0 units SC .MILD SLIDING SCALE PRN PRN Reason: Mild Correctional Scale Insulin Human Regular (Humulin R) 0 units SC .BEDTIME SLIDING SC PRN PRN Reason: Bedtime Correctional Scale Metoprolol Tartrate (Lopressor) 25 mg PO BID [facility] Last Admin: 03/05/17 08:11 Dose: 25 mg Morphine Sulfate (Duramorph) 2 mg IVP Q4H PRN PRN Reason: Moderate Pain (4-6) Last Admin: 03/02/17 15:51 Dose: 2 mg Ondansetron HCl (Zofran Odt) 4 mg PO Q6H PRN PRN Reason: Nausea/Vomiting Ondansetron HCl (Zofran) 4 mg IVP Q6H PRN PRN Reason: Nausea/Vomiting Last Admin: 03/03/17 14:01 Dose: 4 mg Sertraline HCl (Zoloft) 100 mg PO DAILY [facility] Last Admin: 03/04/17 09:36 Dose: 100 mg Sevelamer Carbonate (Renvela) 3,200 mg PO TID-WM [facility] Last Admin: 03/05/17 07:59 Dose: Not Given Sodium Chloride (Flush - Normal Saline) 10 ml IVF Q12HR [facility] Last Admin: 03/05/17 08:11 Dose: 10 ml Sodium Chloride (Flush - Normal Saline) 10 ml IVF PRN PRN PRN Reason: Saline Flush
[2017-03-05] MEDS ORDERED: Diprivan 20 ML ONE (13:34)
[2017-03-05] MEDS ORDERED: ePHEDrine/0.9% NaCl/PF SYRINGE 50 mg/10 ml ONE ×2 (13:51→15:49)
[2017-03-05] MEDS ORDERED: PHENYLEPHRINE-NS 100 MCG/ML 10 ML SYRINGE ONE (13:53)
[2017-03-05] MEDS ORDERED: Propofol 200 MG/20 ML VIAL ONE (15:49)
[2017-03-05] MEDS: Clopidogrel Bisulfate 75 MG TAB PO SCH (17:05)
[2017-03-05] MEDS: Famotidine 20 MG TAB PO SCH (22:42)
[2017-03-05] MEDS: Atorvastatin Calcium 20 MG TAB PO SCH (22:43)
[2017-03-06 05:03] LABS: #Eosinphils 0.4 thou/uL (0.0-0.7); #Lymphocytes 1.5 thou/uL (1.20-3.40); #Monocytes 0.9 thou/uL (0.11-0.59); %Basophils 0.4 % (0.0-1.0); %Lymphocytes 12.6 % (21.0-51.0); %Monocytes 7.9 % (0.0-10.0); Hematocrit 24.2 % (36.0-47.0); Mean Platelet Volume 8.6 fL (7.4-10.4); Red Blood Cell (RBC) Count 2.59 mill/uL (4.20-5.40); White Blood Cell (WBC) Count 11.8 thou/uL (4.8-10.8)
[2017-03-06 05:22] LABS: Anion Gap 17 mmol/L (10-20); BUN (Urea Nitrogen) 44 mg/dL (9.8-20.1); Calc. Creatinine Clearance 4 mL/min (70-130); Calcium 8.2 mg/dL (7.8-10.44); Carbon Dioxide 24 mmol/L (23-31); Chloride 97 mmol/L (98-107); Estimated GFR-MDRD 3
[2017-03-06] MEDS ORDERED: Potassium Chloride 20 MEQ TAB PO SCH (07:15)
--- NOTE | 2017-03-06 07:16 | ECHO ---
TRANSESOPHAGEAL ECHOCARDIOGRAM: DATE OF PROCEDURE: 03/05/17 INDICATION: 71-year-old woman with myocardial infarction and mitral regurgitation. DESCRIPTION OF PROCEDURE: The patient was taken to the PACU. The patient was sedated by anesthesiology. A transesophageal probe was placed in the distal esophagus and stomach. Echocardiographic images were obtained. The transesophageal probe was removed. FINDINGS: 1. Left atrial enlargement. 2. Left ventricle not dilated. 3. Structurally normal mitral valve. 4. Normal aortic valve. 5. Moderate to severe mitral regurgitation. 6. Mild tricuspid regurgitation. 7. Atherosclerotic debris in the descending aorta. IMPRESSION: Structurally normal mitral valve with moderate to severe mitral regurgitation and a nondilated left v entricle.
[2017-03-06] MEDS: Calcium Acetate 667 MG CAP PO SCH ×2 (08:00→12:42)
[2017-03-06] MEDS: Sevelamer Carbonate 800 MG TAB PO SCH ×2 (08:55→12:41)
[2017-03-06] MEDS: Metoprolol Tartrate 25 MG TAB PO SCH (08:58)
[2017-03-06] MEDS: Clopidogrel Bisulfate 75 MG TAB PO SCH (08:59)
--- NOTE | 2017-03-06 10:08 | PRG ---
DATE OF SERVICE: 03/06/2017 SUBJECTIVE: Ms. Schroeder is a 71-year-old female with known history of ESRD and currently on pe ritoneal dialysis. She was admitted for chest pain and ruled in for [place]. She underwent cardiac augustus terization with coronary stent placement. Yesterday she underwent transesophageal echocardiogram - f inding was structurally normal mitral valve with moderate to severe mitral regurgitation and non-dila ruthann left ventricle. This morning she voices no new complaints. She denies any chest pain, no shortn ess of breath. PHYSICAL EXAMINATION: VITAL SIGNS: Blood pressure 127/62, heart rate 66, respiratory rate 18, temperature 99.4, pulse ox 9 2%. GENERAL: Noted to be awake, alert, comfortable, not in distress. SKIN: Adequate turgor. HEENT: She has pinkish conjunctivae, anicteric sclerae. NECK: No neck mass, no carotid bruits, no JVD. CHEST: No deformities. LUNGS: Clear breath sounds. No wheezing, no crackles. HEART: Normal sinus rhythm. No murmur, no gallops, no rubs. ABDOMEN: Globular, soft, nontender, no masses. EXTREMITIES: No edema, no deformities. MEDICATIONS: 03/06/2017 - Reviewed. LABORATORY: 03/06/2017 - White count 11.8, hemoglobin 8.1. Sodium 135, potassium 3.3, chloride 97, carbon dioxide 24, BUN 44, creatinine 13.9, glucose 108, calcium 8.2. ASSESSMENT AND PLAN: 1. End-stage renal disease, stable. Tolerating current continuous cycling peritoneal dialysis regim en. No changes to be made with her peritoneal dialysis. 2. Coronary artery disease - status post myocardial infarction. 3. Status post cardiac catheterization with coronary stent placement. The patient is clinically asymptomatic. Overall, I agree with current management.
[2017-03-06 16:56] VITALS: BP 140/70; TEMP 99.2
--- NOTE | 2017-03-06 16:59 | DIS ---
DATE OF DISCHARGE: 03/06/2017 DISCHARGE DISPOSITION: Home. FOLLOWUP: 1. Follow up with primary care physician, Dr. Yessenia Lopez in 1 week. 2. Follow up with Dr. Sebastain Medina in 2 weeks. 3. Follow up with Dr. Leobardo Ricardo in 2 weeks. ALLERGIES: No known drug allergies. The patient was seen and examined on the day of discharge. Denies any new complaints. No chest leti n, shortness of breath, palpitations. DISCHARGE MEDICATIONS: 1. Aspirin 81 mg daily. 2. Lipitor 20 mg at bedtime. 3. Sensipar 60 mg daily. 4. Plavix 75 mg daily for 1 month. 5. Glipizide 5 mg daily. 6. Metoprolol tartrate 25 mg b.i.d. 7. Zoloft 100 mg daily. 8. Renvela 3200 mg 3 times daily with meals. INPATIENT CONSULTANTS: 1. [facility] for medical management. 2. Attending physician with Cardiology Service. 3. Cardiovascular, Dr. Leobardo Ricardo. 4. Nephrology, Dr. Mercer. BRIEF HOSPITAL COURSE: The patient is a 71-year-old female with end-stage renal disease on peritonea l dialysis, hypertension, diabetes mellitus type 2, and hyperlipidemia. She presented to the [facility] with chest discomfort. Please refer to the history and physical dated 03/02/[address] Sebastian parra for further details. The patient was admitted to the Intensive Care Unit with a diagnosis of inferoposterior lateral ST el evation [place]. She underwent emergent cardiac catheterization that showed left main and RCA disease. B are metal stents were placed in the RCA as well as a right posterolateral coronary artery. She was m onitored closely in the Intensive Care Unit post-catheterization. Cardiovascular was consulted for p ossible coronary artery bypass grafting to the LAD and the diagonal [employer]. She underwent transesophage al echocardiogram for assessment of mitral regurgitation yesterday that showed moderate to severe vamsi ral regurgitation. She has been cleared by consultants for discharge. She received peritoneal dialy sis per Dr. Mercer. Carotid Doppler studies showed 50-69% stenosis in the left internal carotid artery. She was extensively counseled on lifestyle modification. She will continue taking Plavix for a thu. Metoprolol dose has been reduced to 25 mg b.i.d. from 100 mg of Toprol-XL daily. FINAL DIAGNOSES: 1. Status post ST elevation myocardial infarction with stent placement as discussed above. 2. Coronary artery disease. 3. Moderate to severe mitral regurgitation. 4. End-stage renal disease on peritoneal dialysis. 5. Hypokalemia, replaced. 6. Hypotension/cardiogenic shock on admission, requiring dopamine. 7. Diabetes mellitus type 2 with diabetic gastroparesis. 8. History of cerebrovascular accident. 9. Secondary hyperparathyroidism. 10. Anemia secondary to renal insufficiency. The patient received 1 unit of packed red blood cells this admission. 11. Mild hyponatremia. 12. Hypoalbuminemia/mild protein-calorie malnutrition. SIGNIFICANT LABORATORIES: Maximum troponin was 243 with maximum CK-MB of 290. Plan of care was discussed with the patient in detail. She stated understanding. Total time coordinating the discharge of this patient was 33 minutes. The patient is not on VESNA inhibitor or ARB secondary to renal dysfunction.
== END 2017-03-06 17:50 | disposition home or self-care (01) | DRG 248 ==
LOC: ERS 08:19 → CCL 08:30 → CCU 09:58 → 2NO 03-04 16:24
PROVIDERS: ADMIT Internal Medicine Cardiovascular Disease; ATTEND Internal Medicine Cardiovascular Disease
PROC: 02703FZ Dilation of Coronary Artery, One Artery with Three Intraluminal Devices, Percutaneous Approach (ICD-10-PCS; principal; 2017-03-02)
PROC: 5A1D70Z Performance of Urinary Filtration, Intermittent, Less than 6 Hours Per Day (ICD-10-PCS; 2017-03-02)
PROC: B2111ZZ Fluoroscopy of Multiple Coronary Arteries using Low Osmolar Contrast (ICD-10-PCS; 2017-03-02)
PROC: 30233N1 Transfusion of Nonautologous Red Blood Cells into Peripheral Vein, Percutaneous Approach (ICD-10-PCS; 2017-03-04)
PROC: B24BZZ4 Ultrasonography of Heart with Aorta, Transesophageal (ICD-10-PCS; 2017-03-05)
DX: I21.11 ST elevation (STEMI) myocardial infarction involving right coronary artery (principal); N18.6 End stage renal disease; R57.0 Cardiogenic shock; E11.22 Type 2 diabetes mellitus with diabetic chronic kidney disease; I12.0 Hypertensive chronic kidney disease with stage 5 chronic kidney disease or end stage renal disease; I95.9 Hypotension, unspecified; I08.3 Combined rheumatic disorders of mitral, aortic and tricuspid valves; E44.1 Mild protein-calorie malnutrition; E87.1 Hypo-osmolality and hyponatremia; N25.81 Secondary hyperparathyroidism of renal origin; E83.39 Other disorders of phosphorus metabolism; E78.00 Pure hypercholesterolemia, unspecified; Z86.73 Personal history of transient ischemic attack (TIA), and cerebral infarction without residual deficits; Z79.84 Long term (current) use of oral hypoglycemic drugs; I25.10 Atherosclerotic heart disease of native coronary artery without angina pectoris; E83.51 Hypocalcemia; Z99.2 Dependence on renal dialysis; E87.6 Hypokalemia; E11.43 Type 2 diabetes mellitus with diabetic autonomic (poly)neuropathy; K31.84 Gastroparesis; D63.1 Anemia in chronic kidney disease; E88.09 Other disorders of plasma-protein metabolism, not elsewhere classified; K58.9 Irritable bowel syndrome, unspecified; F32.9 Major depressive disorder, single episode, unspecified; I65.22 Occlusion and stenosis of left carotid artery; Z68.28 Body mass index [BMI] 28.0-28.9, adult
CPT/HCPCS: 36415; 36416; 36430; 71010; 80048; 80053; 80061; 80069; 82550; 82553; 83735; 84132; 84484; 85014; 85018; 85025; 85049; 85347; 86850; 86900; 86901; 87340; 92928; 93005; 93010; 93306; 93312; 93454; 93798; 93880; A4216; C1725; C1769; C1876; C1887; J1265; J1644; J2274; J2405; J2704; J3246; P9016; Q0162; Q4081

== ENCOUNTER 2017-05-22 14:00 | Inpatient (IN) | payer MEDICARE, MEDICAID ==
--- NOTE | 2017-05-21 13:20 | HP ---
DATE OF ADMISSION: 05/25/2017 HISTORY OF PRESENT ILLNESS: This is a 71-year-old female with end-stage renal disease, diabetes manolo itus, hypertension, dyslipidemia, and acute inferior AL about 3 months ago. She underwent extensive stenting of her right coronary artery, but had residual PDA stenosis at its origin, as well as an ost ial left main stenosis and probable LAD stenosis just after a diagonal with potential targets being L AD, OM and PDA. She was also found to have central mitral regurgitation, moderate. PAST SURGICAL HISTORY: Includes peritoneal dialysis catheter placement, upper and lower endoscopy, t onsillectomy, cholecystectomy, and hysterectomy. Most recent echo done in April showed ejection fr action of 50%, moderate mitral valve regurgitation with centrally directed jet and sclerotic aortic v alve with no stenosis. PAST MEDICAL HISTORY: Additional past medical history includes irritable bowel syndrome, history of shingles, history of right facial droop and diabetic gastroparesis. MEDICATIONS: Included Plavix 75 mg a day, held one week prior to admission. Aspirin one a day, clon idine 0.1 mg daily, glipizide 5 mg, metoprolol succinate 25 mg listed as b.i.d., Renvela 800 mg t.i.d ., Sensipar 30 mg daily, Zoloft 100 mg daily, atorvastatin 20 mg daily. ALLERGIES: None known. SOCIAL HISTORY: She is a nonsmoker, nondrinker. PHYSICAL EXAMINATION: VITAL SIGNS: Height 4 feet 11, weight 140 pounds. NECK: No carotid bruits. LUNGS: Clear to auscultation. CARDIAC: Regular rate and rhythm. I do appreciate a soft 2/6 systolic murmur. LUNGS: Clear to auscultation. ABDOMEN: Soft and nontender with PD catheter in place. EXTREMITIES: She has no edema in her legs and most recently had some bruising in her left upper arm. She had palpable femoral and popliteal pulses as well as left dorsalis pedis pulse. I do not appre ciate any pedal pulses in the right foot. PLAN: At this time is coronary bypass grafting to the LAD, OM, PDA and possibly mitral valve annulop lasty. Informed consent has been obtained.
[2017-05-22 16:04] LABS: #Basophils 0.1 thou/uL (0.0-0.2); #Eosinphils 0.3 thou/uL (0.0-0.7); #Lymphocytes 2.5 thou/uL (1.20-3.40); #Monocytes 0.6 thou/uL (0.11-0.59); #Neutrophils 7.8 thou/uL (1.40-6.50); %Basophils 0.5 % (0.0-1.0); %Eosinophils 3.1 % (0.0-10.0); %Lymphocytes 22.3 % (21.0-51.0); %Monocytes 5.4 % (0.0-10.0); %Neutrophils 68.7 % (42.0-75.0); Hemoglobin 10.9 g/dL (12.0-16.0); Mean Corpuscular HGB CONC 33.2 g/dL (32.0-36.0); Mean Corpuscular Hemoglobin 31.9 pg (27.0-31.0); Mean Corpuscular Volume 96.1 fl (81.0-99.0); Mean Platelet Volume 8.3 fL (7.4-10.4); Platelet Count 266 thou/uL (130-400); RBC Distribution Width 12.6 % (11.5-14.5); Red Blood Cell (RBC) Count 3.42 mill/uL (4.20-5.40); White Blood Cell (WBC) Count 11.4 thou/uL (4.8-10.8)
[2017-05-22 16:34] LABS: Anion Gap 17 mmol/L (10-20); BUN (Urea Nitrogen) 41 mg/dL (9.8-20.1); Calc. Creatinine Clearance 0 mL/min (70-130); Carbon Dioxide 27 mmol/L (23-31); Chloride 97 mmol/L (98-107); Estimated GFR-MDRD 3; Glucose 174 mg/dL (80-115); Sodium 138 mmol/L (136-145)
[2017-05-22 16:37] LABS: Potassium 2.9 mmol/L (3.5-5.1)
[2017-05-25] MEDS ORDERED: CEFAZOLIN/Water 2 GM/20 ML SYRINGE ONE (06:20)
[2017-05-25] MEDS ORDERED: Albumin 5% 500 ML ONE (06:34)
[2017-05-25] MEDS ORDERED: Heparin 10,000 UNITS/1 ML VIAL 30,000 UNITS in Sodium Chloride 0.9% 1,000 ML FS SCH (06:45)
[2017-05-25] MEDS ORDERED: Midazolam HCl 5 mg/5 ml Vial ONE (06:49)
[2017-05-25] MEDS ORDERED: Fentanyl 100 MCG/2 ML VIAL ONE ×2 (06:49)
[2017-05-25] MEDS ORDERED: Dexmedetomidine 200 MCG/2 ML VIAL ONE (06:50)
[2017-05-25] MEDS ORDERED: Norepinephrine 4 MG/4 ML VIAL ONE (06:50)
[2017-05-25] MEDS ORDERED: Vecuronium 10 MG VIAL ONE ×3 (06:50→14:19)
[2017-05-25] MEDS ORDERED: Midazolam HCl 2 mg/2 ml Vial ONE (07:15)
[2017-05-25] MEDS ORDERED: Insulin Regular 300 UNITS/3 ML VIAL ONE (10:18)
[2017-05-25] MEDS ORDERED: Guaifenesin DM 100-10/5 ML UDCUP PO PRN (10:49)
[2017-05-25] MEDS ORDERED: Bisacodyl 5 MG TAB PO PRN (10:49)
[2017-05-25] MEDS ORDERED: Post-Op Insulin Drip Protocol IVPB ONE (10:49)
[2017-05-25] MEDS ORDERED: HYDROcodone/Acetaminophen 5/325 mg Tablet PO PRN ×2 (10:49)
[2017-05-25] MEDS ORDERED: DOPamine 400 MG/D5W 250 ML 250 ML IVPB PRN (10:49)
[2017-05-25] MEDS ORDERED: Nitroglycerin 50 MG/250 ML BOT 250 ML IVPB PRN (10:49)
[2017-05-25] MEDS ORDERED: Promethazine HCl 25 MG/ML VIAL IM PRN (10:49)
[2017-05-25] MEDS ORDERED: hydrALAZINE 20 MG/ML VIAL SLOW IVP PRN (10:49)
[2017-05-25] MEDS ORDERED: Bisacodyl 10 MG SUPP PR PRN (10:49)
[2017-05-25] MEDS ORDERED: Hetastarch 6% 500 ML 500 ML IVPB PRN (10:49)
[2017-05-25] MEDS ORDERED: Mag-Al 1200 mg/1200 mg/30 ML UDCUP PO PRN (10:49)
[2017-05-25] MEDS ORDERED: Phenylephrine 10 MG/NS 250 ML 250 ML IVPB PRN (10:49)
[2017-05-25] MEDS ORDERED: Acetaminophen 325 MG TAB PO PRN (10:49)
[2017-05-25] MEDS ORDERED: Dextrose 50% Abboject 50 ML SYRINGE SLOW IVP PRN (11:01)
[2017-05-25] MEDS ORDERED: Dextrose 5% in Water 1,000 ML IV PRN (11:01)
--- NOTE | 2017-05-25 11:05 | OP ---
PREOPERATIVE DIAGNOSES: 1. Coronary artery disease. 2. Mitral regurgitation. POSTOPERATIVE DIAGNOSES: 1. Coronary artery disease. 2. Mitral regurgitation. PROCEDURE: Coronary artery bypass graft x3, left internal mammary artery, good flow to a 1.5-1.75 mm LAD, saphenous vein graft to a 1.5-1.75 OM with the vein being rather small conduit, and saphenous v ein to a 1.5-2 mm calcified PDA. SURGEON: Leobardo Ricardo M.D. APPLIED MARINE PHYSICS PROFESSOR: Dr. Hightower. TRANSFUSION: None. FINDINGS: The patient had a transesophageal echo showing mild central mitral regurgitation. PROCEDURE IN DETAIL: After adequate anesthesia had been obtained, the patient was prepped and draped . Midline sternotomy was performed while endovascular vein harvest of the left greater saphenous vei n was performed by Dr. Hightower. After harvesting the left internal mammary artery, the aorta and right atrium were cannulated and cardiopulmonary bypass instituted after adequate ACT levels. Mammary art krishna was treated with intraluminal papaverine and measured to the proposed site of the LAD graft. The patient had severe left ventricular hypertrophy. Cross-clamp applied. A liter of [place] cardiopl egic solution given following which 3 distal anastomoses were completed. Cross-clamp was removed, pa rtial occluding clamp placed, and the right coronary artery anastomosis to the aorta was performed an d into its cortes the OM vein graft with it being rather small and not felt suitable for direct anastom osis to the aorta. The patient was then weaned from cardiopulmonary bypass, cannulas were removed, a nd protamine given systemically. The aortic cannulation site was reinforced with a Prolene suture. Following this, mediastinal and left pleural drains were placed, following which the sternum was reap proximated with #7 interrupted wire using vancomycin paste, platelet-enriched blood, and platelet-poo r plasma on the skin and subcutaneous tissue. The patient was then to be taken to the ICU after clos ure of the skin incision.
[2017-05-25 11:32] LABS: INR-International Normal Ratio 1.4; PTT 29.7 SEC (22.9-36.1)
[2017-05-25 11:33] VITALS: BMI 28.0
[2017-05-25] MEDS: Sodium Chloride 0.9% 1,000 ML IV SCH (11:45)
[2017-05-25 11:49] LABS: Anion Gap 17 mmol/L (10-20); BUN (Urea Nitrogen) 33 mg/dL (9.8-20.1); Calc. Creatinine Clearance 5 mL/min (70-130); Calcium 7.3 mg/dL (7.8-10.44); Carbon Dioxide 19 mmol/L (23-31); Chloride 105 mmol/L (98-107); Estimated GFR-MDRD 4; Glucose 114 mg/dL (80-115); Sodium 138 mmol/L (136-145)
[2017-05-25 11:50] LABS: Base Excess (BEa) -4.8 mEq/L (0 (+/-) 2.5); CO2 Tension 31.4 mmHg (35.0-45.0); Hematocrit-ABG 35.8 % (36.0-47.0); Hemoglobin (Hb) 11.7 g/dL (12.0-16.0); O2 Tension (PaO2) 84.4 mmHg (80.0-100.0)
[2017-05-25 11:51] LABS: Band 5 % (5-11); Hemoglobin 11.7 g/dL (12.0-16.0); Lymphocytes 11 % (21-51); MDiff Complete? YES; Mean Corpuscular HGB CONC 33.6 g/dL (32.0-36.0); Mean Corpuscular Hemoglobin 31.4 pg (27.0-31.0); Mean Corpuscular Volume 93.3 fl (81.0-99.0); Mean Platelet Volume 8.2 fL (7.4-10.4); Monocytes 4 % (0-10); Neutrophil 80 % (42-75); Platelet Count 161 thou/uL (130-400); RBC Distribution Width 13.4 % (11.5-14.5); Red Blood Cell (RBC) Count 3.71 mill/uL (4.20-5.40); White Blood Cell (WBC) Count 24.9 thou/uL (4.8-10.8)
[2017-05-25 11:55] LABS: Potassium 2.8 mmol/L (3.5-5.1)
--- NOTE | 2017-05-25 13:02 | RAD ---
PORTABLE CHEST: Date: 05/25/17 HISTORY: Postop open heart surgery. COMPARISON: 03/02/17. FINDINGS: Postop sternotomy changes are now seen. The heart size is enlarged. There is some pleural and parench ymal change in the left base. Endotracheal tube appears to be in satisfactory position. It is approxi mately 1.5 cm above the adeel, directed towards the right mainstem bronchus. Right subclavian line i s seen with catheter tip overlying the superior vena cava. Minimal subsegmental atelectasis of the ri ght lung base is noted. Left-sided chest tube in place. IMPRESSION: Postop sternotomy change. Changes in the left base are probably on the basis of atelectasis with prob able effusion. POS: [facility]
[2017-05-25] MEDS: CEFAZOLIN/Water 2 GM/20 ML SYRINGE SLOW IVP SCH ×2 (13:22→21:29)
[2017-05-25] MEDS ORDERED: Aminocaproic Acid 5 GM/20 ML VIAL ONE (14:19)
[2017-05-25] MEDS ORDERED: Protamine Sulfate 250 MG/25 ML VIAL ONE (14:19)
[2017-05-25] MEDS ORDERED: Lidocaine 1% PF 5 ML VIAL ONE (14:19)
[2017-05-25] MEDS ORDERED: DOPamine 400 MG/10 ML VIAL ONE (14:19)
[2017-05-25] MEDS ORDERED: Heparin 5,000 UNITS/ML VIAL ONE (14:19)
[2017-05-25] MEDS ORDERED: Sodium Bicarb 50 MEQ/50 ML VIAL ONE (14:19)
[2017-05-25] MEDS ORDERED: Cardioplegic Soln 1,000 ML BAG ONE (14:19)
[2017-05-25] MEDS ORDERED: Papaverine 60 MG/2 ML VIAL ONE (14:19)
[2017-05-25] MEDS ORDERED: Calcium Chloride 1 GM/10 ML Abboject SYRINGE ONE (14:19)
[2017-05-25] MEDS ORDERED: Nitroglycerin 50 MG/250 ML BOT ONE (14:19)
[2017-05-25] MEDS ORDERED: Heparin 30,000 units/30 ml VIAL ONE (14:19)
[2017-05-25] MEDS ORDERED: Thrombin 5000 UNITS/5 ML VIAL ONE (14:19)
[2017-05-25] MEDS ORDERED: Magnesium 5 GM/10 ML VIAL ONE (14:19)
[2017-05-25] MEDS ORDERED: Lidocaine 2% PF 100 mg/5 ml Syringe ONE (14:19)
[2017-05-25] MEDS ORDERED: Potassium Chloride 60 MEQ/30 ML VIAL ONE (14:19)
[2017-05-25] MEDS ORDERED: Propofol 200 MG/20 ML VIAL ONE (14:19)
[2017-05-25] MEDS: Ondansetron HCl/PF 4 MG/2 ML Vial IVP PRN (14:21)
--- NOTE | 2017-05-25 15:30 | EKG ---
Test Reason : POST CABG Blood Pressure : / mmHG Vent. Rate : 076 BPM Atrial Rate : 076 BPM P-R Int : 158 ms QRS Dur : 098 ms QT Int : 482 ms P-R-T Axes : 052 -25 030 degrees QTc Int : 542 ms Normal sinus rhythm Possible Lateral infarct , age undetermined Inferior infarct (cited on or before 02-MAR-2017) Prolonged QT Abnormal ECG Confirmed by JEAN PAUL WEST ([id number]) on 05/25/2017 3:30:20 PM Referred By: AMPARO Confirmed By:JEAN PAUL WEST
[2017-05-25] MEDS ORDERED: Potassium Chloride 40 MEQ in Premix Bag 1 BAG IVPB SCH (17:00)
[2017-05-25 17:04] LABS: Hemoglobin 11.8 g/dL (12.0-16.0)
[2017-05-25 17:21] LABS: Potassium 3.8 mmol/L (3.5-5.1)
[2017-05-25] MEDS: Fentanyl 100 MCG/2 ML VIAL SLOW IVP PRN ×2 (17:45→20:56)
[2017-05-25] MEDS ORDERED: Potassium Chloride 40 MEQ/100 ML PREMIX BAG ONE (17:53)
--- NOTE | 2017-05-25 18:17 | CON ---
DATE OF CONSULTATION: 05/25/2017 SERVICE: Renal Medicine. HISTORY OF PRESENT ILLNESS: Ms. Schroeder is a 71-year-old female with ESRD and admitted for CAB G. The patient has had coronary artery disease and has undergone cardiac catheterization and it was felt that she needs a surgical intervention. She underwent CABG today without any difficulty. We jose walker now being consulted for her maintenance peritoneal dialysis. REVIEW OF SYSTEMS: Not obtainable since the patient is sedated and intubated. MEDICATIONS: 1. Hydrocodone 5/325 two tabs q.4 hours p.r.n. 2. Salt poor albumin 5% IV q.6 hours to maintain BP. 3. DuoNeb q.4 hours. 4. Cefazolin 2 grams IV q.8 hours x3 doses. 5. Famotidine 20 mg IV q. day. 6. Levemir sliding scale. 7. Nicardipine drip p.r.n. 8. Normal saline 25 mL per hour. PAST MEDICAL HISTORY: 1. ESRD from a presumed diabetic nephropathy - currently on peritoneal dialysis - nocturnal CCPD. 2. Diabetic gastroparesis. 3. Type 2 diabetes mellitus. 4. Status post right facial droop. 5. Irritable bowel syndrome. 6. Hypertension. 7. Coronary artery disease. 8. Hyperlipidemia. 9. Recently status post myocardial infarction. PAST SURGICAL HISTORY: Status post hysterectomy secondary to a dysfunctional uterine bleeding, statu s post tonsillectomy, status post PD catheter placement, status post cardiac catheterization with cor onary stent placement, status post laparoscopic cholecystectomy, status post upper and lower GI endos copy and recently status post coronary artery bypass graft. ALLERGIES: None. TRAUMA: None. IMMUNIZATIONS: Up to date. HOSPITALIZATIONS: Please see past medical history. SOCIAL HISTORY: The patient is . Four children. Lives alone. Lives in [place]. No smokin g, no alcohol, no IV drug abuse. Sedentary lifestyle. Status post blood transfusion. FAMILY HISTORY: No family history of ESRD. PHYSICAL EXAMINATION: VITAL SIGNS: Blood pressure is 100/48, heart rate 77 and O2 sat 100%. GENERAL: Sedated and intubated on ventilator support. SKIN: Adequate turgor. HEENT: Pinkish conjunctivae, anicteric sclerae. NECK: No neck mass, no carotid bruits, no JVD. CHEST: No deformities. Positive for midline surgical scar. LUNGS: Decreased breath sounds. HEART: Normal sinus rhythm. Grade 2/6 systolic murmur. No gallops or rubs. ABDOMEN: Globular, soft and nontender. Positive for PD catheter. EXTREMITIES: No edema. NEUROLOGIC: Sedated and intubated. LABORATORY DATA: Laboratories of 05/25/2017; white count 24.9 and hemoglobin 11.7. Sodium 138, pota ssium 2.8, chloride 105, carbon dioxide 19, BUN 33, creatinine 10.61 and calcium is 7.3. ASSESSMENT AND PLAN: 1. Hypokalemia, p.r.n. potassium replacement. We will order 20-40 mEq IV to run over 1 hour. 2. End-stage renal disease. We will schedule with her CCPD regimen. We will follow her outpatient CCPD regimen. Due to the recent operation, we will use 1.5% PD solution. 3. Status post coronary artery bypass graft, stable, doing well, followed by her surgeon. 4. Anemia - no indication for any Epogen at the present time. Hemoglobin is noted at 11.7. Review of her last Kt/V suggests she is adequately dialyzed with the current dialysis regimen.
[2017-05-25] MEDS: Famotidine/PF 20 mg/2ml Vial SLOW IVP SCH (20:28)
[2017-05-26] MEDS: Fentanyl 100 MCG/2 ML VIAL SLOW IVP PRN ×5 (04:35→21:09)
[2017-05-26] MEDS: CEFAZOLIN/Water 2 GM/20 ML SYRINGE SLOW IVP SCH (05:56)
[2017-05-26 06:10] LABS: #Lymphocytes 1.2 thou/uL (1.20-3.40); #Monocytes 1.2 thou/uL (0.11-0.59); #Neutrophils 11.6 thou/uL (1.40-6.50); %Eosinophils 0.2 % (0.0-10.0); %Lymphocytes 8.6 % (21.0-51.0); %Monocytes 8.5 % (0.0-10.0); %Neutrophils 82.7 % (42.0-75.0); Hemoglobin 8.9 g/dL (12.0-16.0); Mean Corpuscular HGB CONC 33.6 g/dL (32.0-36.0); Mean Corpuscular Hemoglobin 31.4 pg (27.0-31.0); Mean Corpuscular Volume 93.6 fl (81.0-99.0); Platelet Count 147 thou/uL (130-400); RBC Distribution Width 14.4 % (11.5-14.5); Red Blood Cell (RBC) Count 2.84 mill/uL (4.20-5.40)
[2017-05-26 06:47] LABS: Anion Gap 17 mmol/L (10-20); BUN (Urea Nitrogen) 36 mg/dL (9.8-20.1); Calc. Creatinine Clearance 5 mL/min (70-130); Calcium 9.5 mg/dL (7.8-10.44); Carbon Dioxide 22 mmol/L (23-31); Chloride 104 mmol/L (98-107); Estimated GFR-MDRD 3; Glucose 126 mg/dL (80-115); Potassium 3.6 mmol/L (3.5-5.1); Sodium 139 mmol/L (136-145)
--- NOTE | 2017-05-26 08:14 | RAD ---
SINGLE VIEW OF THE CHEST: Comparison: 05-25-17 History: Open heart surgery, post-operative patient. FINDINGS: Single view of the chest shows a normal sized cardiomediastinal silhouette. Patient is status post st ernotomy. The lines and tubes are unchanged in position. There may be a small left pleural effusion. IMPRESSION: Stable exam. POS: [facility]
[2017-05-26] MEDS: Ondansetron HCl/PF 4 MG/2 ML Vial IVP PRN ×2 (08:28→15:57)
[2017-05-26] MEDS ORDERED: Epoetin (ESRD) 20,000 UNITS/ML SC SCH (09:15)
[2017-05-26 09:43] LABS: Actual Bicarbonate (HCO3a) 19.1 mEq/L (22-26); Base Excess (BEa) -5.7 mEq/L (0 (+/-) 2.5); CO2 Tension 34.6 mmHg (35.0-45.0); O2 Tension (PaO2) 83.3 mmHg (80.0-100.0); pH, Arterial 7.36 (7.35-7.45)
[2017-05-26 09:44] LABS: Hematocrit-ABG 27.9 % (36.0-47.0); Hemoglobin (Hb) 8.8 g/dL (12.0-16.0)
[2017-05-26 09:45] LABS: Calcium, Ionized 1.3 mmol/L (1.12-1.30); Puncture Site RRA
[2017-05-26] MEDS ORDERED: Insulin Detemir 100 UNITS/ML 9 UNITS in Pre-Filled Syringe 1 EACH SC SCH (10:45)
--- NOTE | 2017-05-26 11:15 | PRG ---
DATE OF SERVICE: 05/26/2017 SUBJECTIVE: Ms. Schroeder is a 71-year-old female with ESRD and underwent CABG yesterday. We pl aced her on peritoneal dialysis last night. No difficulty in encounter. No new complaints today. PHYSICAL EXAMINATION: VITAL SIGNS: Blood pressure is 111/54, heart rate 69, respiratory rate 10, pulse ox 97%. GENERAL: Awake, intubated on ventilator support. SKIN: Adequate turgor. HEENT: Slightly pale conjunctivae, anicteric sclerae. NECK: No neck mass, no carotid bruits, no JVD. CHEST: No deformities. LUNGS: Decreased breath sounds. HEART: Normal sinus rhythm. No murmur, no gallops, no rubs. ABDOMEN: Globular, soft, nontender, no masses. Positive for PD catheter. EXTREMITIES: No edema. MEDICATIONS: Of 05/26/2017, reviewed. LABORATORY DATA: On 05/26/2017, white count 14, hemoglobin 8.9, sodium 139, potassium 3.6, chloride 104, carbon dioxide 22, BUN 36, creatinine 10.9, calcium 9.5. ASSESSMENT AND PLAN: 1. End-stage renal disease, stable. We will continue current CCPD regimen. Tolerating current saeid toneal dialysis regimen. Due to the recent surgery, we are using 1.5% PD solution. 2. Anemia. We will resume weekly Epogen with this patient. 3. Status post coronary artery bypass graft, stable, doing well.
[2017-05-26] MEDS: Sodium Chloride 0.9% 1,000 ML IV SCH (11:57)
[2017-05-26] MEDS: Insulin Regular 300 UNITS/3 ML VIAL SC PRN ×2 (16:25→21:13)
[2017-05-26] MEDS: Famotidine/PF 20 mg/2ml Vial SLOW IVP SCH (21:10)
[2017-05-27] MEDS: Fentanyl 100 MCG/2 ML VIAL SLOW IVP PRN ×3 (01:20→13:45)
[2017-05-27] MEDS: Insulin Regular 300 UNITS/3 ML VIAL SC PRN (05:25)
[2017-05-27 05:48] LABS: #Eosinphils 0.2 thou/uL (0.0-0.7); #Lymphocytes 1.2 thou/uL (1.20-3.40); #Monocytes 0.8 thou/uL (0.11-0.59); #Neutrophils 13.5 thou/uL (1.40-6.50); %Basophils 0.2 % (0.0-1.0); %Eosinophils 1.6 % (0.0-10.0); %Lymphocytes 7.8 % (21.0-51.0); %Monocytes 5.3 % (0.0-10.0); %Neutrophils 85.1 % (42.0-75.0); Hemoglobin 9.3 g/dL (12.0-16.0); Mean Corpuscular HGB CONC 32.1 g/dL (32.0-36.0); Mean Corpuscular Hemoglobin 30.8 pg (27.0-31.0); Mean Corpuscular Volume 96.1 fl (81.0-99.0); Mean Platelet Volume 9.5 fL (7.4-10.4); Platelet Count 159 thou/uL (130-400); RBC Distribution Width 14.3 % (11.5-14.5); Red Blood Cell (RBC) Count 3.02 mill/uL (4.20-5.40); White Blood Cell (WBC) Count 15.8 thou/uL (4.8-10.8)
[2017-05-27 05:56] LABS: Anion Gap 19 mmol/L (10-20); BUN (Urea Nitrogen) 40 mg/dL (9.8-20.1); Calc. Creatinine Clearance 5 mL/min (70-130); Calcium 9.5 mg/dL (7.8-10.44); Carbon Dioxide 23 mmol/L (23-31); Chloride 101 mmol/L (98-107); Estimated GFR-MDRD 3; Glucose 153 mg/dL (80-115); Potassium 3.7 mmol/L (3.5-5.1); Sodium 139 mmol/L (136-145)
[2017-05-27] MEDS ORDERED: Guaifenesin DM 100-10/5 ML UDCUP PO PRN (07:13)
[2017-05-27] MEDS ORDERED: Mineral Oil ENEMA PR PRN (07:13)
[2017-05-27] MEDS ORDERED: Mag-Al 1200 mg/1200 mg/30 ML UDCUP PO PRN (07:13)
[2017-05-27] MEDS ORDERED: Nitroglycerin 0.4 MG TAB 1 EACH SL PRN (07:13)
[2017-05-27] MEDS ORDERED: Bisacodyl 10 MG SUPP PR PRN (07:13)
[2017-05-27] MEDS ORDERED: Acetaminophen 325 MG TAB PO PRN (07:13)
[2017-05-27] MEDS ORDERED: Bisacodyl 5 MG TAB PO PRN (07:13)
[2017-05-27] MEDS ORDERED: Milk Of Magnesia 30 ML UDCUP PO PRN (07:13)
[2017-05-27] MEDS: HYDROcodone/Acetaminophen 5/325 mg Tablet PO PRN ×3 (07:36→20:05)
[2017-05-27] MEDS ORDERED: Insulin Regular 300 UNITS/3 ML VIAL SC PRN (07:37)
[2017-05-27] MEDS ORDERED: Dextrose 5% in Water 1,000 ML IV PRN (07:38)
--- NOTE | 2017-05-27 08:35 | RAD ---
PORTABLE CHEST 1 VIEW: DATE: 05/27/17. TIME: 5:12 a.m. HISTORY: Post open heart surgery. FINDINGS/IMPRESSION: Comparison is made with the exam of previous day. Endotracheal tube and mediastinal drain have been removed in the interim. The remainder of the exam is otherwise stable. POS: [facility]
[2017-05-27] MEDS ORDERED: Famotidine 20 MG TAB PO SCH (09:00)
[2017-05-27] MEDS ORDERED: Clopidogrel Bisulfate 75 MG TAB PO SCH (09:00)
--- NOTE | 2017-05-27 09:25 | PRG ---
DATE OF SERVICE: 05/27/2017 RENAL MEDICINE SUBJECTIVE: Ms. Schroeder is a 71-year-old female with ESRD - currently on CCPD and recently adm itted for a CABG. She is doing well since the operation. She is also tolerating the peritoneal dial ysis. She has no new complaints except for postop pain. Denies any chest pain. Denies any shortnes s of breath. PHYSICAL EXAMINATION: VITAL SIGNS: Blood pressure 103/70, heart rate is 70, respiratory rate 20, pulse ox 99%. GENERAL: Noted to be awake, alert, comfortable, not in distress. SKIN: Adequate turgor. HEENT: Pinkish conjunctivae. Anicteric sclerae. NECK: No neck mass, no carotid bruits, no JVD. CHEST: No deformities. Positive for midline surgical scar. LUNGS: Clear breath sounds. No wheezing. HEART: Normal sinus rhythm. No murmur, no gallops, no rubs. ABDOMEN: Globular, soft, nontender. No masses. EXTREMITIES: No edema. MEDICATIONS: Medications of 05/27/2017 was reviewed. LABORATORY DATA: Laboratories of 05/27/2017; white count 15.8, hemoglobin 9.3, sodium 139, potassium 3.7, chloride 101, carbon dioxide 23, BUN 14, creatinine 11.38, glucose 153, and calcium 9.5. ASSESSMENT AND PLAN: 1. Status post coronary artery bypass grafting - doing well. Surgery is following, undergoing physi wayne therapy. 2. End-stage renal disease, stable. We will continue current CCPD regimen. Due to slightly low blo od pressure, we are using only 1.5% peritoneal dialysis solution to minimize ultrafiltration. 3. Anemia. The patient is currently on weekly Epogen. 4. Recheck CBC in a.m.
[2017-05-27] MEDS: Aspirin 81 mg Enteric Coated Tablet PO SCH (09:38)
[2017-05-27] MEDS: Cinacalcet HCl 30 MG TAB PO SCH (09:38)
[2017-05-27] MEDS: Sevelamer Carbonate 800 MG TAB PO SCH ×3 (09:41→17:19)
[2017-05-27] MEDS: Ondansetron HCl/PF 4 MG/2 ML Vial IVP PRN (17:19)
[2017-05-27] MEDS: Famotidine 20 MG TAB PO SCH (20:04)
[2017-05-28 05:28] LABS: #Eosinphils 0.3 thou/uL (0.0-0.7); #Lymphocytes 1.1 thou/uL (1.20-3.40); #Monocytes 0.7 thou/uL (0.11-0.59); #Neutrophils 8.7 thou/uL (1.40-6.50); %Basophils 0.1 % (0.0-1.0); %Eosinophils 2.6 % (0.0-10.0); %Lymphocytes 9.9 % (21.0-51.0); %Monocytes 6.8 % (0.0-10.0); %Neutrophils 80.7 % (42.0-75.0); Hemoglobin 8.8 g/dL (12.0-16.0); Mean Corpuscular HGB CONC 32.5 g/dL (32.0-36.0); Mean Corpuscular Hemoglobin 31.6 pg (27.0-31.0); Mean Corpuscular Volume 97.2 fl (81.0-99.0); Mean Platelet Volume 9.4 fL (7.4-10.4); Platelet Count 141 thou/uL (130-400); Red Blood Cell (RBC) Count 2.77 mill/uL (4.20-5.40); White Blood Cell (WBC) Count 10.8 thou/uL (4.8-10.8)
[2017-05-28] MEDS: HYDROcodone/Acetaminophen 5/325 mg Tablet PO PRN ×2 (07:58→14:17)
[2017-05-28] MEDS ORDERED: Sodium Chloride 0.9% 10 ML ONE (08:12)
[2017-05-28] MEDS: Aspirin 81 mg Enteric Coated Tablet PO SCH (08:18)
[2017-05-28] MEDS: Sevelamer Carbonate 800 MG TAB PO SCH ×3 (08:18→18:36)
[2017-05-28] MEDS: Cinacalcet HCl 30 MG TAB PO SCH (08:18)
--- NOTE | 2017-05-28 08:46 | PRG ---
DATE OF SERVICE: 05/28/2017 SUBJECTIVE: Ms. Schroeder is a 71-year-old female with ESRD - currently on CCPD regimen and unde rwent CABG. Since the CABG the patient is doing well. She has been transferred from ICU to [facility]. No new complaints today except for postop pain. She started to ambulate yesterday. No new complaints. No shortness of breath. PHYSICAL EXAMINATION: VITAL SIGNS: Blood pressure is 120/58, heart rate 78, respiratory rate 18, temperature 98.9, pulse o x 96%. GENERAL: Noted to be awake, alert, comfortable, not in distress. SKIN: Adequate turgor. HEENT: She has slightly pale conjunctivae, anicteric sclerae. NECK: No neck mass, no carotid bruits, no JVD. CHEST: No deformities. LUNGS: Decreased breath sounds. HEART: Normal sinus rhythm. No murmur, no gallops, no rubs. ABDOMEN: Globular, soft, nontender. No masses. Positive for PD catheter. EXTREMITIES: No edema. MEDICATIONS: 05/28/2017 - Reviewed. LABORATORY: 05/28/2017 - White count 10.8, hemoglobin 8.8. Blood sugar this morning was 54. 05/27/2017 - BUN 40, creatinine 11.38. ASSESSMENT AND PLAN: 1. Anemia - on a weekly Epogen of 7500 units subcutaneously every week. 2. End-stage renal disease, stable. Tolerating current continuous cycling peritoneal dialysis regim en. Continue to use 1.5% PD solution. No changes to be made with the current peritoneal dialysis re [facility]. 3. Coronary artery disease, status post coronary artery bypass graft, doing well. Surgery is follow ing.
[2017-05-28] MEDS: Ondansetron HCl/PF 4 MG/2 ML Vial IVP PRN (14:41)
[2017-05-28] MEDS ORDERED: Dextrose 5% in Water 1,000 ML IV SCH (17:30)
[2017-05-28] MEDS: Metoprolol Tartrate 25 MG TAB PO SCH (20:10)
[2017-05-28] MEDS: Famotidine 20 MG TAB PO SCH (20:11)
[2017-05-28] MEDS: Atorvastatin Calcium 20 MG TAB PO SCH (20:11)
[2017-05-28] MEDS: Dextrose 50% Abboject 50 ML SYRINGE SLOW IVP PRN (23:41)
[2017-05-29 05:21] LABS: #Eosinphils 0.4 thou/uL (0.0-0.7); #Lymphocytes 1.3 thou/uL (1.20-3.40); #Monocytes 1.1 thou/uL (0.11-0.59); #Neutrophils 9.9 thou/uL (1.40-6.50); %Basophils 0.1 % (0.0-1.0); %Eosinophils 2.8 % (0.0-10.0); %Lymphocytes 10.4 % (21.0-51.0); %Monocytes 8.7 % (0.0-10.0); %Neutrophils 78.1 % (42.0-75.0); Hemoglobin 9.5 g/dL (12.0-16.0); Mean Corpuscular HGB CONC 32.6 g/dL (32.0-36.0); Mean Corpuscular Hemoglobin 31.7 pg (27.0-31.0); Mean Corpuscular Volume 97.2 fl (81.0-99.0); Mean Platelet Volume 9.1 fL (7.4-10.4); Platelet Count 222 thou/uL (130-400); RBC Distribution Width 13.9 % (11.5-14.5); White Blood Cell (WBC) Count 12.7 thou/uL (4.8-10.8)
[2017-05-29] MEDS: Dextrose 50% Abboject 50 ML SYRINGE SLOW IVP PRN ×2 (05:35→13:39)
[2017-05-29 05:52] LABS: Anion Gap 16 mmol/L (10-20); BUN (Urea Nitrogen) 39 mg/dL (9.8-20.1); Calc. Creatinine Clearance 5 mL/min (70-130); Calcium 7.5 mg/dL (7.8-10.44); Carbon Dioxide 25 mmol/L (23-31); Chloride 97 mmol/L (98-107); Estimated GFR-MDRD 4; Glucose 41 mg/dL (80-115); Potassium 3.1 mmol/L (3.5-5.1); Sodium 135 mmol/L (136-145)
[2017-05-29] MEDS: Cinacalcet HCl 30 MG TAB PO SCH (09:18)
[2017-05-29] MEDS: Metoprolol Tartrate 25 MG TAB PO SCH ×2 (09:18→20:10)
[2017-05-29] MEDS: Aspirin 81 mg Enteric Coated Tablet PO SCH (09:19)
[2017-05-29] MEDS: Sevelamer Carbonate 800 MG TAB PO SCH ×3 (09:19→20:10)
[2017-05-29] MEDS ORDERED: Potassium Chloride 20 MEQ TAB PO SCH (13:15)
[2017-05-29] MEDS: Famotidine 20 MG TAB PO SCH (20:10)
[2017-05-29] MEDS: Atorvastatin Calcium 20 MG TAB PO SCH (20:10)
[2017-05-29] MEDS: HYDROcodone/Acetaminophen 5/325 mg Tablet PO PRN (21:03)
[2017-05-30] MEDS: Sevelamer Carbonate 800 MG TAB PO SCH ×3 (08:40→17:56)
[2017-05-30] MEDS: Cinacalcet HCl 30 MG TAB PO SCH (08:40)
[2017-05-30] MEDS: Metoprolol Tartrate 25 MG TAB PO SCH ×2 (08:43→22:31)
[2017-05-30] MEDS: Aspirin 81 mg Enteric Coated Tablet PO SCH (08:44)
[2017-05-30] MEDS: HYDROcodone/Acetaminophen 5/325 mg Tablet PO PRN ×2 (08:45→22:30)
--- NOTE | 2017-05-30 12:30 | PRG ---
DATE OF SERVICE: 05/30/2017 RENAL MEDICINE SUBJECTIVE: Ms. Schroeder is a 71-year-old female with ESRD and currently on peritoneal dialysis . Doing better. Recently had CABG. No new complaints. No chest pain, no shortness of breath. She is ambulating. PHYSICAL EXAMINATION: VITAL SIGNS: Blood pressure 122/58, heart rate 64, respiratory rate 20, temperature 97.7, pulse ox 9 8%. GENERAL: Awake, alert, supine, comfortable, not in distress. SKIN: Adequate turgor. HEENT: She has slightly pale conjunctivae, anicteric sclerae. NECK: No neck mass, no carotid bruits, no JVD. CHEST: No deformities. LUNGS: Clear breath sounds. No wheezing, no crackles. HEART: Normal sinus rhythm. No murmur, no gallops, no rubs. ABDOMEN: Globular, soft, nontender. No masses. EXTREMITIES: No edema. MEDICATIONS: Medications of 05/30/2017 was reviewed. LABORATORY DATA: Laboratories of 05/29/2017; white count 12.7, hemoglobin 9.5. Sodium 135, potassiu m 3.1, chloride 97, carbon dioxide 25, BUN is 39, creatinine 10.62, glucose 109. ASSESSMENT AND PLAN: 1. Hypokalemia, p.r.n. potassium replacement. 2. Anemia, currently on weekly Epogen. Tolerating citrate. 3. End-stage renal disease, stable. We will continue current CCPD regimen. Minimal fluid removal. Using 1.5% PD solution. We will continue current CCPD nocturnal regimen as is. 4. Status post coronary artery bypass graft, doing well. Ambulating. 5. We will recheck basic metabolic panel and CBC in a.m.
[2017-05-30] MEDS: Ondansetron HCl/PF 4 MG/2 ML Vial IVP PRN (12:31)
[2017-05-30] MEDS: Famotidine 20 MG TAB PO SCH (22:30)
[2017-05-30] MEDS: Atorvastatin Calcium 20 MG TAB PO SCH (22:31)
[2017-05-31 05:38] LABS: #Eosinphils 0.4 thou/uL (0.0-0.7); #Lymphocytes 1.5 thou/uL (1.20-3.40); #Monocytes 1.2 thou/uL (0.11-0.59); #Neutrophils 8.1 thou/uL (1.40-6.50); %Basophils 0.1 % (0.0-1.0); %Eosinophils 3.2 % (0.0-10.0); %Monocytes 11.2 % (0.0-10.0); %Neutrophils 72.5 % (42.0-75.0); Hemoglobin 8.9 g/dL (12.0-16.0); Mean Corpuscular HGB CONC 33.2 g/dL (32.0-36.0); Mean Corpuscular Hemoglobin 32.1 pg (27.0-31.0); Mean Corpuscular Volume 96.6 fl (81.0-99.0); Mean Platelet Volume 8.2 fL (7.4-10.4); Platelet Count 248 thou/uL (130-400); RBC Distribution Width 13.5 % (11.5-14.5); Red Blood Cell (RBC) Count 2.78 mill/uL (4.20-5.40); White Blood Cell (WBC) Count 11.1 thou/uL (4.8-10.8)
[2017-05-31 05:49] LABS: Anion Gap 17 mmol/L (10-20); BUN (Urea Nitrogen) 44 mg/dL (9.8-20.1); Calc. Creatinine Clearance 5 mL/min (70-130); Calcium 7.2 mg/dL (7.8-10.44); Carbon Dioxide 25 mmol/L (23-31); Chloride 94 mmol/L (98-107); Estimated GFR-MDRD 4; Glucose 93 mg/dL (80-115); Potassium 3.9 mmol/L (3.5-5.1); Sodium 132 mmol/L (136-145)
[2017-05-31 08:55] VITALS: TEMP 97.6
[2017-05-31] MEDS ORDERED: FLU VACC TS2017-18 (>65YR) 0.5 ML SYRINGE IM ONE (09:00)
[2017-05-31] MEDS: Sevelamer Carbonate 800 MG TAB PO SCH ×2 (09:02→12:14)
[2017-05-31] MEDS: Cinacalcet HCl 30 MG TAB PO SCH (09:02)
[2017-05-31] MEDS: Metoprolol Tartrate 25 MG TAB PO SCH (09:02)
[2017-05-31] MEDS: Aspirin 81 mg Enteric Coated Tablet PO SCH (09:02)
[2017-05-31] MEDS: HYDROcodone/Acetaminophen 5/325 mg Tablet PO PRN (09:04)
--- NOTE | 2017-05-31 10:53 | PRG ---
DATE OF SERVICE: 05/31/2017 SERVICE: Renal Medicine. SUBJECTIVE: Ms. Schroeder is a 71-year-old female with ESRD, currently on CCPD. Recently underw ent CABG. Doing well. She is ambulating. No new complaints. No chest pain or shortness of breath. OBJECTIVE: VITAL SIGNS: Blood pressure 104/59, heart rate 61, respiratory rate 16, temperature 97.6. GENERAL: Awake, alert, comfortable. SKIN: Adequate turgor. HEENT: Slightly pale conjunctivae, anicteric sclerae. NECK: No neck mass, no carotid bruits, no JVD. CHEST: No deformities. LUNGS: Decreased breath sounds. HEART: Normal sinus rhythm. No murmur, no gallops, no rubs. ABDOMEN: Globular, soft, nontender, no masses. Positive for PD catheter. EXTREMITIES: No edema, no deformities. MEDICATIONS: Medications of 05/31/2017 was reviewed. LABORATORY DATA: Laboratories of 05/31/2017, white count 11.1, hemoglobin 8.9. Sodium 132, potassiu m 3.9, chloride 94, carbon dioxide 25, BUN 44, creatinine 10.77, glucose 93, calcium 7.2. ASSESSMENT AND PLAN: 1. End-stage renal disease, stable. Tolerating current continuous cycling peritoneal dialysis regim en. No changes will be made with her current peritoneal dialysis. Please note, we are using 1.5% PD solution to minimize ultrafiltration. 2. Anemia, on weekly Epogen. We will be rechecking CBC and basic met. 3. Status post coronary artery bypass graft, doing well, ambulating well.
[2017-05-31] MEDS: Ondansetron HCl/PF 4 MG/2 ML Vial IVP PRN (14:31)
[2017-05-31 14:48] VITALS: BP 128/59
== END 2017-05-31 17:06 | DRG 235 ==
LOC: SURG A 05-25 05:28 → CCU 05-25 10:28 → 2NO 05-27 16:33
PROVIDERS: ADMIT Thoracic Surgery (Cardiothoracic Vascular Surgery); ATTEND Thoracic Surgery (Cardiothoracic Vascular Surgery)
PROC: 02100Z9 Bypass Coronary Artery, One Artery from Left Internal Mammary, Open Approach (ICD-10-PCS; principal; 2017-05-25)
PROC: 021109W Bypass Coronary Artery, Two Arteries from Aorta with Autologous Venous Tissue, Open Approach (ICD-10-PCS; 2017-05-25)
PROC: 06BQ4ZZ Excision of Left Saphenous Vein, Percutaneous Endoscopic Approach (ICD-10-PCS; 2017-05-25)
PROC: 5A1221Z Performance of Cardiac Output, Continuous (ICD-10-PCS; 2017-05-25)
PROC: B24BZZ4 Ultrasonography of Heart with Aorta, Transesophageal (ICD-10-PCS; 2017-05-25)
PROC: 3E1M39Z Irrigation of Peritoneal Cavity using Dialysate, Percutaneous Approach (ICD-10-PCS; 2017-05-25)
DX: I25.110 Atherosclerotic heart disease of native coronary artery with unstable angina pectoris (principal); N18.6 End stage renal disease; E11.21 Type 2 diabetes mellitus with diabetic nephropathy; E11.649 Type 2 diabetes mellitus with hypoglycemia without coma; I12.0 Hypertensive chronic kidney disease with stage 5 chronic kidney disease or end stage renal disease; E11.22 Type 2 diabetes mellitus with diabetic chronic kidney disease; I34.0 Nonrheumatic mitral (valve) insufficiency; E78.5 Hyperlipidemia, unspecified; I25.2 Old myocardial infarction; Z99.2 Dependence on renal dialysis; Z79.02 Long term (current) use of antithrombotics/antiplatelets; Z79.82 Long term (current) use of aspirin; Z95.5 Presence of coronary angioplasty implant and graft; E87.6 Hypokalemia; D63.1 Anemia in chronic kidney disease; K58.9 Irritable bowel syndrome, unspecified; Z86.73 Personal history of transient ischemic attack (TIA), and cerebral infarction without residual deficits
CPT/HCPCS: 36415; 36416; 36430; 71045; 80048; 82805; 85025; 85610; 85730; 86850; 86900; 86901; 90471; 90682; 90945; 93005; 93010; 93798; 94002; 94003; 94150; A4216; G0008; G0257; J1265; J1610; J1642; J1644; J1815; J2001; J2250; J2270; J2405; J2440; J2550; J2704; J2720; J3010; J3370; J3475; J3480; J7050; P9016; P9045; Q2036; Q4081; S0017; S0028

== ENCOUNTER 2017-05-22 14:57 | Outpatient (CLI) | payer MEDICARE, MEDICAID | END 2017-05-22 14:58 | disposition home or self-care (01) | LOC: LABBT 14:57 | PROVIDERS: ATTEND Thoracic Surgery (Cardiothoracic Vascular Surgery) | DX: Z01.812 Encounter for preprocedural laboratory examination (principal); I25.10 Atherosclerotic heart disease of native coronary artery without angina pectoris; I05.0 Rheumatic mitral stenosis | CPT/HCPCS: 80048; 85025; 86850; 86900; 86901 ==

== ENCOUNTER 2017-08-17 11:17 | Inpatient (IN) | payer MEDICARE, MEDICAID ==
--- NOTE | 2017-08-17 11:51 | CT ---
CT BRAIN WITHOUT CONTRAST: HISTORY: Stroke. Unable to answer questions. FINDINGS: Noncontrast-enhanced CT images of the brain were obtained on 08/17/17. Comparison is made to a previo us exam from 12/10/15. Noncontrast-enhanced CT images of the brain demonstrate the brain to be unremarkable. No evidence of intracranial masses, hemorrhages, strokes, or contusions seen. Ventricles are of normal size. The calvarium is unremarkable. IMPRESSION: Normal CT brain. Findings called to Dr. Prabhakar at 11:29 on 08/17/17. Message left with Sam[facility] to have Dr. Prabhakar r destineyurn my call. CODE CR POS: [facility]
[2017-08-17 11:55] LABS: #Basophils 0.1 thou/uL (0.0-0.2); #Eosinphils 0.1 thou/uL (0.0-0.7); #Lymphocytes 2.8 thou/uL (1.20-3.40); #Neutrophils 8.8 thou/uL (1.40-6.50); %Basophils 0.5 % (0.0-1.0); %Eosinophils 0.9 % (0.0-10.0); %Lymphocytes 22.3 % (21.0-51.0); %Monocytes 7.8 % (0.0-10.0); %Neutrophils 68.5 % (42.0-75.0); Hemoglobin 12.4 g/dL (12.0-16.0); Mean Corpuscular HGB CONC 34.9 g/dL (32.0-36.0); Mean Corpuscular Hemoglobin 32.7 pg (27.0-31.0); Mean Corpuscular Volume 93.6 fl (81.0-99.0); Platelet Count 328 thou/uL (130-400); RBC Distribution Width 12.3 % (11.5-14.5); Red Blood Cell (RBC) Count 3.78 mill/uL (4.20-5.40); White Blood Cell (WBC) Count 12.8 thou/uL (4.8-10.8)
[2017-08-17 12:02] LABS: INR-International Normal Ratio 1.1; Prothrombin Time 14.1 SEC (12.0-14.7)
[2017-08-17 12:06] LABS: PTT 19.6 SEC (22.9-36.1)
[2017-08-17] MEDS ORDERED: Diltiazem HCl 125 MG, Admixture Fee 1 EACH in Sodium Chloride 0.9% 100 ML IVPB SCH (12:15)
[2017-08-17 12:21] LABS: Troponin I 0.091 ng/mL (< 0.028)
[2017-08-17 12:27] LABS: ALT (SGPT) Less than 7 U/L (8-55); AST (SGOT) 11 U/L (5-34); Albumin 3.6 g/dL (3.4-4.8); Alkaline Phosphatase 147 U/L (40-150); Anion Gap 24 mmol/L (10-20); BUN (Urea Nitrogen) 32 mg/dL (9.8-20.1); Bilirubin, Total 0.9 mg/dL (0.2-1.2); Calc. Creatinine Clearance 0 mL/min (70-130); Carbon Dioxide 20 mmol/L (23-31); Chloride 97 mmol/L (98-107); Estimated GFR-MDRD 3; Globulin 4.2 g/dL (2.4-3.5); Glucose 106 mg/dL (83-110); Potassium 3.4 mmol/L (3.5-5.1); Protein, Total 7.8 g/dL (6.0-8.3); Sodium 138 mmol/L (136-145)
[2017-08-17] MEDS ORDERED: Ondansetron HCl/PF 4 MG/2 ML Vial IVP PRN (13:56)
[2017-08-17] MEDS ORDERED: Zolpidem Tartrate 5 MG TAB PO PRN (13:56)
[2017-08-17] MEDS ORDERED: Acetaminophen 325 MG TAB PO PRN (13:56)
[2017-08-17] MEDS ORDERED: Labetalol HCl 100 MG/20 ML VIAL SLOW IVP PRN (14:00)
[2017-08-17] MEDS ORDERED: HumaLOG 300 UNITS/3 ML VIAL SC PRN (14:03)
[2017-08-17] MEDS ORDERED: Dextrose 50% Abboject 50 ML SYRINGE SLOW IVP PRN (14:03)
[2017-08-17] MEDS ORDERED: Dextrose 5% in Water 1,000 ML IV PRN (14:03)
--- NOTE | 2017-08-17 14:16 | PDOC.EVN ---
Event Note - Event Note Event Note: H&P #[id number]
[2017-08-17 14:27] LABS: Hemoglobin A1c 5.2 % (4.0-6.0)
[2017-08-17 14:32] LABS: Hemoglobin 10.1 g/dL (12.0-16.0); Platelet Count 373 thou/uL (130-400)
--- NOTE | 2017-08-17 14:59 | HP ---
DATE OF ADMISSION: 08/17/2017 CHIEF COMPLAINT: Altered mental status and dysarthria. HISTORY OF PRESENT ILLNESS: This is a 72-year-old female, who was admitted to the hospital by coming in through ER. Patient, at this point in time, is accompanied by her son, who also provides the his tory. The patient currently is alert and oriented x3; however, at the point in time of admission as well as for past few hours prior to admission, the patient was noted to have symptoms of altered ment al status, alternating between Chinese and Bermudian, as well as having some visible dysarthria upon pr esentation to the ER. The patient had a CT scan of her head done, which was normal, no acute intracr anial abnormalities were noted. The patient was found to have a heart rate of 140s. New onset atria l fibrillation. The patient was started on a Cardizem drip. Heart rate was brought down to the 80s and 90s and the patient currently at point in time of evaluation by Internal Medicine in the ER is ba ck to her baseline normal per her son as well as per patient. The patient states that she does not r eally know what happened and is not sure of what may have triggered it. Denies any relieving or aggr avating factors. The patient has not had any recent medication changes at all. Of note, patient had a [place] in 03/2017, had presented to the hospital, had a cardiac catheterization, and was found to have an ejection fraction of 55%-60% with an aortic valve being sclerotic and [id number] mitral reg urgitation noted, [id number] tricuspid regurgitation noted as well. The patient stated that, a t that point in time, she had a cardiac catheterization done with stent placement, and then 2 months later on 05/25/2017, she had a coronary artery bypass graft performed. The patient states that she h as not followed up with a card doffer since then. She was not sure if she was supposed to or not. 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 Denies any abdominal pain at e abdominal insertion site of the PD catheter. Denies any cloudy fluid. The patient states that she had peritoneal fluid analysis done on Marisa, 6 days ago, and that everything was said to have been normal. Patient, otherwise, has an unremarkable presentation or history. The patient was seen and examined in the ER and son at bedside. All questions and answers. ALLERGIES: No known drug allergies. HOME MEDICATIONS: See MAR. PAST MEDICAL HISTORY: Positive for coronary artery disease, hypertension, hyperlipidemia, hypokalemi a, ESRD, anemia secondary to renal disease, secondary hyperparathyroidism due to renal disease. FAMILY HISTORY: Positive for hypertension on both sides. SOCIAL HISTORY: Denies any smoking or drinking. REVIEW OF SYSTEMS: All systems reviewed. Pertinent positives in the HPI, otherwise negative. PHYSICAL EXAMINATION: VITAL SIGNS: Blood pressure 180/71, heart rate ranging from 80-90, respiratory rate of 12, saturatin g 98% on room air. GENERAL: Patient in Trendelenburg position. Alert, oriented x3, in no acute distress. HEENT: Pupils equal, round, react to light and accommodation. Oral cavity moist and pink. NECK: Nontender mobile thyroid. CHEST: Clear to auscultation bilaterally, no rales, rubs, or rhonchi appreciated. CARDIOVASCULAR EXAM: A 2+ irregular rate and rhythm. S1, S2. No murmurs, rubs, or gallops apprecia ruthann. Surgical scar noted, clean, dry and intact. No signs of infection noted. ABDOMINAL EXAM: Positive bowel sounds, soft, nontender. PD insertion site noted to be clean. No er ythema or signs of infection noted. No tenderness to palpation. EXTREMITIES: A 2+ peripheral pulses noted bilaterally. No cyanosis, clubbing, or edema bilaterally. NEUROLOGIC: Cranial nerves II-XII intact. Alert, oriented x3. No loss of sensory function. MUSCULOSKELETAL: Again, no loss of muscle tone. Moving all 4 extremities. SKIN: No rash or turgor noted. LABORATORY DATA: CT of the head shows no acute abnormalities. CBC: WBC count 12.8, hemoglobin 12.4 , platelets of 328, hematocrit 35.4. Coagulation: PT, INR, APTT within normal limits. Basic metabo lic panel shows a serum sodium of 138, potassium 3.4, chloride 97, bicarbonate 20, anion gap of 24, B UN of 30, creatinine of 13.5, glucose 116. AST and ALT normal. Troponin of 0.091. Globulin of 4.2 and albumin-globulin ratio of 0.9. ASSESSMENT AND PLAN: 1. Altered mental status. 2. Dysarthria. 3. End-stage renal disease. 4. New onset atrial fibrillation. 5. Anemia of renal disease. 6. Hypertension. 7. Hypokalemia secondary to peritoneal dialysis. 8. Diabetes mellitus, type 2. 9. Secondary hyperparathyroidism due to renal disease. PLAN: Admit the patient to telemetry, consult Cardiology and Nephrology, we will discontinue Cardize m drip and give the patient 240 p.o. of Cardizem at this point in time and then resume Cardizem 240 p .o. daily. We will start the patient on a heparin drip and also provide her with aspirin. Continue home statin. We will obtain a TSH level as well as an echocardiogram and also send for WBC count and analysis of peritoneal fluid. No signs of SIRS or sepsis. At this point in time, we will hold off on any antibiotics. Also, obtain carotid ultrasounds to rule out any possibilities of stroke. Patie nt wishes to remain a FULL CODE at this point in time. Code status discussed with the patient and so n at length, who was at bedside. Case and plan discussed with the patient at length with son at [facility]. They understand and agree with this plan.
[2017-08-17 15:01] LABS: Troponin I 0.169 ng/mL (< 0.028)
[2017-08-17 17:14] VITALS: BMI 25.4
[2017-08-17] MEDS: Heparin 25,000 units/D5W 500 ML IVPB SCH (18:02)
[2017-08-17] MEDS: Heparin 10,000 UNITS/ 10 ML VIAL SLOW IVP SCH (18:02)
[2017-08-17] MEDS: Sevelamer Carbonate 800 MG TAB PO SCH (18:03)
--- NOTE | 2017-08-17 18:59 | CON ---
DATE OF CONSULTATION: 08/17/2017 RENAL MEDICINE HISTORY OF PRESENT ILLNESS: Ms. Schroeder is a 72-year-old female with known history of ESRD - c urrently on nocturnal peritoneal dialysis and admitted for confusion and mild dysarthria. She was al so noted to be in atrial fibrillation and was initially given IV Cardizem. Her heart rate is now muc h improved. Her mental status change as well as dysarthria is completely resolved. Please note she underwent CT scan which is essentially negative. We are being consulted for maintenance peritoneal dialysis. REVIEW OF SYSTEMS: Positive for confusion, positive for diaphoresis, no nausea, no vomiting, no diar nury, no syncopal episode, no productive cough, no fever or chills, no gross hematuria, no dysuria, n o urinary frequency. There is no hematochezia, no melena, no hematemesis. MEDICATIONS: Currently on IV heparin, Tylenol 650 mg q.4 h. p.r.n., aspirin 81 mg daily, Lipitor 20 mg at bedtime, Sensipar 60 mg daily, diltiazem CD 240 mg p.o. daily, Pepcid 20 mg b.i.d., heparin dri p, Humalog sliding scale, Normodyne 20 mg IV q.4 h. p.r.n., metoprolol tartrate 12.5 mg b.i.d., Zofra n p.r.n., KCl 10 mEq once a day, Renvela 800 mg 4 tabs t.i.d. with meals, and Ambien 5 mg at bedtime. PAST MEDICAL HISTORY: 1. ESRD secondary to presumed diabetic nephropathy. 2. Type 2 diabetes mellitus. 3. Hypertension. 4. Status post right facial droop. 5. Irritable bowel syndrome. 6. Coronary artery disease. 7. Hyperlipidemia. 8. Status post DE. PAST SURGICAL HISTORY: 1. Status post cardiac catheterization. 2. Status post CABG. 3. Status post laparoscopic cholecystectomy. 4. History of status post upper and lower GI endoscopy. 5. Status post cardiac catheterization with coronary stent placement. 6. Status post hysterectomy secondary to dysfunctional uterine bleeding. SOCIAL HISTORY: The patient is , lives in [place], 4 children, lives alone. No smoking, no alcohol, no drug abuse. Status post blood transfusion. Sedentary lifestyle. ALLERGIES: None. TRAUMA: None. IMMUNIZATIONS: Up to date. HOSPITALIZATIONS: Please see past medical history. PHYSICAL EXAMINATION: VITAL SIGNS: Blood pressure 167/81, heart rate 84, respiratory rate 22, temperature 97.5, pulse ox 1 00%. GENERAL: Noted to be awake, alert, comfortable, not in distress. SKIN: Adequate turgor. HEENT: Pinkish conjunctivae, anicteric sclerae. NECK: No neck mass, no carotid bruits, no JVD. CHEST: No deformities. LUNGS: Clear breath sounds. HEART: Normal sinus rhythm. No murmur, no gallops, no rubs. ABDOMEN: Globular, soft, nontender, no masses. Positive for PD catheter. EXTREMITIES: No edema, no deformities. NEUROLOGIC: Awake, oriented to 3 spheres. Moving all extremities. No tremors. No asterixis. No d ysarthria. LABORATORY DATA: Of 08/17/2017, hemoglobin is 10.1, hematocrit 30.7. Sodium 138, potassium 3.4, chl oride 97, carbon dioxide 20, BUN 32, creatinine 13.35, glucose 106, calcium is 10, AST is 11, ALT les s than 7. Troponin I 0.169. ASSESSMENT AND PLAN: 1. Acute mental status change - which spontaneously resolved. CT scan of the brain was negative. 2. Transient atrial fibrillation - status post IV Cardizem. Currently to be started on p.o. Cardize m 240 mg tab once a day. 3. End-stage renal disease, stable. We will continue current CCPD regimen. We will do a 10-hour pe ritoneal dialysis regimen with this patient using a 2 liter fill volume and using a 1.5% PD solution. No other changes to be made. 4. Borderline anemia, we will continue to observe. If needed, consider starting Epogen 7500 units e very week. Thank you for the consult. We will continue to follow.
--- NOTE | 2017-08-17 20:41 | CON ---
DATE OF CONSULTATION: 08/17/2017 REASON FOR CONSULTATION: Atrial fibrillation, rapid ventricular response. HISTORY OF PRESENT ILLNESS: Mrs. Schroeder is a very pleasant 72-year-old female who comes to [facility] for altered mentation and dysarthria. She was at home and started being acting weird. [facility] would go back and forth between Northern Irish and Frisian. By the time she came to the ER, she was dysar thric and unable to pronounce words. She was found to be in atrial fibrillation and RVR, heart rate in the 140s, and then suddenly converted into sinus rhythm back to the 80s and 90s and has remained t hat way. Cardiology is being consulted for atrial fibrillation RVR. She does have a history of umang nary artery disease, presenting to the hospital back in February with an inferior ST elevation SD. S he received bare metal stenting to RCA and eventually had a coronary artery bypass grafting for resid ual left main disease. This was done in May. She did well from that. She did not have any atr ial fibrillation postsurgery. She has followed up with Dr. Mills in the past, but is now wanting to follow up with Dr. Medina and actually he is the one who did a heart catheterization and stenti ng during her SD and is scheduled to see him in September of this year. PAST MEDICAL HISTORY: 1. Coronary artery disease as above. 2. Hypertension. 3. Hyperlipidemia. 4. Hypokalemia. 5. End-stage renal disease, on peritoneal dialysis. 6. Anemia of chronic disease. 7. Secondary hyperparathyroidism. FAMILY HISTORY: Hypertension. No early coronary disease. SOCIAL HISTORY: No alcohol, tobacco or drugs. REVIEW OF SYSTEMS: A 12 point review of systems was done and is all negative unless stated in the hi story of present illness. OUTPATIENT MEDICATIONS: Reviewed, 1. Metoclopramide 5 mg q.8 before meals. 2. Alprazolam. 3. Calcitriol. 4. Amlodipine 5 mg. 5. Sertraline 100 mg q.p.m. 6. Atorvastatin mg at bedtime. 7. Metoprolol 12.5 mg b.i.d. 8. Aspirin 81 a day. 9. Renvela. ALLERGIES: No known drug allergies. PHYSICAL EXAMINATION: VITAL SIGNS: Temperature 97.5, pulse 84, respiration rate 22, satting 100% on room air, blood pressu re 167/81. GENERAL: Awake, alert, oriented x3, in no distress. HEENT: Normocephalic, atraumatic. NECK: Supple. LUNGS: Clear. CARDIOVASCULAR: S1, S2, no S3 or S4, no murmurs, no rubs. ABDOMEN: Soft, positive bowel sounds. EXTREMITIES: No edema. SKIN: Warm and dry. LABORATORY WORK: Reviewed. CBC with a white count of 12, hemoglobin 12, hematocrit 35, platelet cou nt of 328. Coags were reviewed. Chemistries were reviewed. Potassium was low at 3.4, chloride of 9 7, carbon dioxide of 20, anion gap of 24, BUN of 32, creatinine , hemoglobin A1c is 5.2. Tropon in was 0.09 and 0.16. Albumin of 3.6. TSH was normal. CT of the brain was unremarkable. ASSESSMENT: 1. New onset atrial fibrillation, paroxysmal back in sinus. 2. Coronary artery disease, no evidence of acute coronary syndrome, stable at this time, asymptomati c. 3. Transient ischemic attack/stroke: MRI to be done tomorrow. PLAN: 1. She is back in sinus at this time, most likely paroxysmal atrial fibrillation. We will increase her metoprolol to 25 mg twice a day and most likely will need up to 50 twice a day. She will be a ca ndidate for full anticoagulation for stroke prophylaxis. We will choose Eliquis 5 mg twice a day. C urrently, she is being placed on heparin drip which I think is reasonable as I do not know if there h as been any injury to the brain, any stroke, MRI should be done. 2. Planning on stopping her scheduled potassium given risk of hyperkalemia in renal patient. Dr. Hurd n to see for continued peritoneal dialysis. 3. We will stop diltiazem drip. Thank you for allowing me to participate in the care of your patient. Dr. Medina, her primary card iologist, will follow up in the morning.
[2017-08-17] MEDS ORDERED: Atorvastatin Calcium 20 MG TAB PO SCH (21:00)
[2017-08-17] MEDS ORDERED: Metoprolol Tartrate 25 MG TAB PO SCH (21:00)
[2017-08-17] MEDS: Metoprolol Tartrate 25 MG TAB PO SCH (21:33)
[2017-08-17 22:22] LABS: Troponin I 0.759 ng/mL (< 0.028)
[2017-08-18] MEDS: Heparin 10,000 UNITS/ 10 ML VIAL SLOW IVP SCH ×3 (01:49→21:12)
[2017-08-18 06:24] LABS: Cardiac Risk 6.3 (Less than 4.5)
[2017-08-18 06:32] LABS: Troponin I 0.733 ng/mL (< 0.028)
[2017-08-18] MEDS ORDERED: Potassium Chloride 10 MEQ TAB PO SCH (08:00)
[2017-08-18] MEDS: Metoprolol Tartrate 25 MG TAB PO SCH ×2 (08:45→21:09)
[2017-08-18] MEDS: Famotidine 20 MG TAB PO SCH (08:45)
[2017-08-18] MEDS: Cinacalcet HCl 30 MG TAB PO SCH (08:45)
[2017-08-18] MEDS ORDERED: Epoetin (ESRD) 20,000 UNITS/ML SC SCH (08:45)
[2017-08-18] MEDS: Sevelamer Carbonate 800 MG TAB PO SCH ×4 (08:45→18:09)
--- NOTE | 2017-08-18 09:29 | PDOC.PN ---
- Subjective Encounter Start Date: 08/18/17 Encounter Start Time: 11:15 Subjective: Patient without complaint. No more confusion or trouble with speech. -: No family present at this time. - Objective MAR Reviewed: Yes Vital Signs & Weight: Vital Signs (12 hours) Temp Pulse Resp BP Pulse Ox 08/18/17 08:41 98.2 F 76 18 142/71 H 99 08/18/17 04:00 98.4 F 70 18 127/62 97 08/18/17 03:31 98 08/18/17 00:00 99.2 F 73 18 120/60 98 Result Diagrams: 08/17/17 14:22 08/17/17 11:46 Additional Labs: Accuchecks 08/18/17 08/17/17 08/17/17 05:55 20:54 18:03 POC Glucose 152 H 188 H 106 Phys Exam - Physical Examination Constitutional: NAD HEENT: moist MMs Respiratory: no wheezing, no rales, no rhonchi Cardiovascular: RRR, no significant murmur Gastrointestinal: soft, positive bowel sounds Musculoskeletal: no edema Neurological: non-focal, moves all 4 limbs Psychiatric: normal affect, A&O x 3 Dx/Plan (1) Altered mental status Code(s): R41.82 - ALTERED MENTAL STATUS, UNSPECIFIED Status: Resolved Comment: possible TIA, will get MRI, ECHO, and Carotid U/S, will need anticoagulation for paroxysmal afib (2) Paroxysmal atrial fibrillation Code(s): I48.0 - PAROXYSMAL ATRIAL FIBRILLATION Status: Acute Comment: back in NSR, will start on Elliquis per Dr. Ignacio (3) ESRD on peritoneal dialysis Code(s): N18.6 - END STAGE RENAL DISEASE; Z99.2 - DEPENDENCE ON RENAL DIALYSIS Status: Chronic (4) Anemia of renal disease Code(s): D63.1 - ANEMIA IN CHRONIC KIDNEY DISEASE Status: Chronic (5) HTN (hypertension) Code(s): I10 - ESSENTIAL (PRIMARY) HYPERTENSION Status: Chronic Qualifiers: Hypertension type: renovascular hypertension Qualified Code(s): I15.0 - Renovascular hypertension (6) Hypokalemia Code(s): E87.6 - HYPOKALEMIA Status: Acute Comment: david, Dr. Mercer managing dialysis - Plan cont current plan of care, DVT proph w/heparin, DVT proph w/SCDs * . - Discharge Day Encounter end time: 11:30
--- NOTE | 2017-08-18 11:04 | PRG ---
DATE OF SERVICE: 08/18/2017 RENAL MEDICINE SUBJECTIVE: Ms. Schroeder is a 72-year-old female with ESRD - on maintenance peritoneal dialysis who was admitted due to a rapid atrial fibrillation. She also had dysarthria and confusion, but thi s has resolved. She was temporarily placed on IV Cardizem and heart rate is much improved. She is n ow on p.o. Cardizem. Cardiology is further evaluating the patient. She tells me she has a carotid D oppler schedule and then MRI. Her CT scan was essentially negative. She underwent peritoneal dialys is without any difficulty yesterday. She has no new complaints today. She has no chest pain or shor tness of breath. PHYSICAL EXAMINATION: VITAL SIGNS: Blood pressure is 142/71, heart rate 76, respiratory rate 18, temperature 98.2, and pul se ox 99%. GENERAL: Noted to be awake, alert, supine, comfortable, not in distress. SKIN: Adequate turgor. HEENT: Slightly pale conjunctivae, anicteric sclerae. NECK: No neck mass, no carotid bruits, no JVD. CHEST: No deformities. LUNGS: Clear breath sounds. HEART: Normal sinus rhythm. No murmurs, no gallops, no rubs. ABDOMEN: Globular, soft, nontender. Positive for PD catheter. EXTREMITIES: No edema. MEDICATIONS: Medications of 08/18/2017 was reviewed. LABORATORY DATA: Laboratories of 08/17/2017; hemoglobin 10.1. On 08/18/2017; cholesterol was 177, LDL 123, troponin I is 0.733. On 08/17/2017; potassium 3.4, BUN 32, creatinine 13.35. ASSESSMENT AND PLAN: 1. End-stage renal disease, stable. Tolerating current continuous cycling peritoneal dialysis regim en. She is undergoing a 10-hour treatment for her peritoneal dialysis. We will continue current con tinuous cycling peritoneal dialysis regimen. No changes to be made. 2. Anemia - we will restart Epogen 7,500 units subcu every week. 3. Transient ischemic attack - carotid Doppler. 4. Status post atrial fibrillation - currently on IV heparin and on p.o. Cardizem. Cardiology is delbert grubbs. Recheck base met and CBC in a.m.
[2017-08-18] MEDS: Heparin 25,000 units/D5W 500 ML IVPB SCH (18:36)
--- NOTE | 2017-08-18 18:40 | MRI ---
MRI OF BRAIN WITHOUT CONTRAST 08/18/17 HISTORY: TIA versus a stroke. COMPARISON: CT brain prior day. FINDINGS: On the diffusion weighted imaging shows no abnormal areas of diffusion restriction to suggest acute i nfarction. This is confirmed on the ADC map. There is mild periventricular and deep white matter micro angiopathic changes. On the susceptibility weighted sequence, no abnormal areas of hemorrhage. Cerebellar tonsils terminates at the level of the foramen magnum. Corpus callosum is normal. There is small volume fluid within both mastoids. Mild atrophy. The sycuan of Roche flow voids are maintained. IMPRESSION: 1. No acute hemorrhage or infarct. 2. Moderate microvascular ischemic changes, chronic. POS: [facility]
[2017-08-18] MEDS: Atorvastatin Calcium 40 MG TAB PO SCH (21:09)
[2017-08-19] MEDS: Metoprolol Tartrate 25 MG TAB PO SCH ×2 (09:00→23:39)
[2017-08-19] MEDS: Famotidine 20 MG TAB PO SCH (09:01)
[2017-08-19] MEDS: Cinacalcet HCl 30 MG TAB PO SCH (09:01)
[2017-08-19] MEDS: Sevelamer Carbonate 800 MG TAB PO SCH ×3 (09:03→18:20)
[2017-08-19 09:32] LABS: #Eosinphils 0.2 thou/uL (0.0-0.7); #Lymphocytes 2.7 thou/uL (1.20-3.40); #Neutrophils 8.2 thou/uL (1.40-6.50); %Basophils 0.3 % (0.0-1.0); %Eosinophils 1.7 % (0.0-10.0); %Lymphocytes 22.3 % (21.0-51.0); %Monocytes 8.4 % (0.0-10.0); %Neutrophils 67.3 % (42.0-75.0); Hemoglobin 9.4 g/dL (12.0-16.0); Mean Corpuscular HGB CONC 32.7 g/dL (32.0-36.0); Mean Corpuscular Hemoglobin 30.7 pg (27.0-31.0); Mean Corpuscular Volume 94.1 fl (81.0-99.0); Mean Platelet Volume 8.1 fL (7.4-10.4); Platelet Count 345 thou/uL (130-400); RBC Distribution Width 12.5 % (11.5-14.5); Red Blood Cell (RBC) Count 3.05 mill/uL (4.20-5.40); White Blood Cell (WBC) Count 12.2 thou/uL (4.8-10.8)
--- NOTE | 2017-08-19 09:36 | PRG ---
DATE OF SERVICE: 08/19/2017. SUBJECTIVE: Ms. Schroeder is a 72-year-old female with ESRD and currently on maintenance periton eal dialysis. She was admitted for mental status change and a transient dysarthria. MRI of the head was done yesterday which showed no acute hemorrhage or infarct. Only moderate microvascular ischemi c changes were seen which is chronic in nature. In addition, she has been evaluated by Cardiology. Cardiac echo was done which showed an EF of 50-55%. This morning she voices no new complaints. She denies any chest pain, shortness of breath. She underwent peritoneal dialysis without any difficulty yesterday. PHYSICAL EXAMINATION: VITAL SIGNS: Blood pressure is currently noted at 117/62, heart rate 53, respiratory rate 16, temper ature 98.3. GENERAL: Awake, alert, comfortable, not in distress. SKIN: Adequate turgor. HEENT: Pinkish conjunctivae, anicteric sclerae. NECK: No neck mass, no carotid bruits, no JVD. CHEST: No deformities. LUNGS: Clear breath sounds, no wheezing, no crackles. HEART: Normal sinus rhythm. No murmur, no gallops or rubs. ABDOMEN: Globular, soft, nontender. Positive for PD catheter. EXTREMITIES: No edema, no deformities. MEDICATIONS: 08/19/2017 - Reviewed. LABORATORY: 08/17/2017 - Hemoglobin 10.1. 08/19/2017 - Glucose 112. 08/17/2017 - Cholesterol of 177. ASSESSMENT AND PLAN: 1. End-stage renal disease, stable. Continue current continuous cycling peritoneal dialysis regimen . No changes will be made with her current peritoneal dialysis. We will schedule her for another 10 hour peritoneal dialysis tonight. 2. Status post dysarthria - MRI of the brain was essentially negative. No evidence of an acute cere brovascular accident. 3. Anemia, on maintenance Epogen. Continue current management. Recheck base met and CBC in a.m.
[2017-08-19] MEDS: Apixaban 2.5 MG TAB PO SCH ×2 (10:57→23:41)
--- NOTE | 2017-08-19 12:46 | PDOC.PN ---
- Subjective Encounter Start Date: 08/19/17 Encounter Start Time: 12:44 Subjective: alert, no complaints - Objective MAR Reviewed: Yes Vital Signs & Weight: Vital Signs (12 hours) Temp Pulse Resp BP Pulse Ox 08/19/17 12:00 98.3 F 53 L 16 97/52 L 99 08/19/17 08:59 98.3 F 53 L 16 93 L 08/19/17 08:00 98.3 F 53 L 16 117/62 93 L 08/19/17 04:59 97.9 F 56 L 16 100/65 95 Weight Admit Weight 125 lb 11.2 oz Weight 125 lb 11.2 oz I&O: 08/18/17 08/19/17 08/20/17 06:59 06:59 06:59 Intake Total 150 Balance 150 Result Diagrams: 08/19/17 04:03 08/17/17 11:46 Additional Labs: Accuchecks 08/19/17 08/18/17 08/18/17 05:19 22:05 16:54 POC Glucose 112 H 149 H 122 H Phys Exam - Physical Examination Neck: no JVD Respiratory: clear to auscultation bilateral Cardiovascular: RRR, no significant murmur Gastrointestinal: soft, positive bowel sounds Musculoskeletal: no edema, pulses present Dx/Plan (1) Paroxysmal atrial fibrillation Code(s): I48.0 - PAROXYSMAL ATRIAL FIBRILLATION Status: Acute Comment: back in NSR, will start on Elliquis per Dr. Ignacio (2) Anemia of renal disease Code(s): D63.1 - ANEMIA IN CHRONIC KIDNEY DISEASE Status: Chronic (3) Altered mental status Code(s): R41.82 - ALTERED MENTAL STATUS, UNSPECIFIED Status: Resolved Comment: possible TIA, will get MRI, ECHO, and Carotid U/S, will need anticoagulation for paroxysmal afib (4) DM type 2 (diabetes mellitus, type 2) Status: Chronic Qualifiers: Diabetes mellitus fdc insulin use: without fdc use Diabetes mellitus complication status: with kidney complications Diabetes mellitus complication detail: with chronic kidney disease Chronic kidney disease stage : on chronic dialysis Qualified Code(s): E11.22 - Type 2 diabetes mellitus with diabetic chronic kidney disease; N18.6 - End stage renal disease; N18.6 - End stage renal disease; N18.6 - End stage renal disease; N18.6 - End stage renal disease; Z99.2 - Dependence on renal dialysis; Z99.2 - Dependence on renal dialysis; Z99.2 - Dependence on renal dialysis; Z99.2 - Dependence on renal dialysis (5) Dyslipidemia Code(s): E78.5 - HYPERLIPIDEMIA, UNSPECIFIED Status: Chronic (6) HTN (hypertension) Code(s): I10 - ESSENTIAL (PRIMARY) HYPERTENSION Status: Chronic Qualifiers: Hypertension type: renovascular hypertension Qualified Code(s): I15.0 - Renovascular hypertension - Plan off heparin, on eliquis -: cont PD -: cont ASA, s * .
[2017-08-19 14:41] LABS: Hemoglobin 9.2 g/dL (12.0-16.0); Platelet Count 319 thou/uL (130-400)
[2017-08-19] MEDS: Atorvastatin Calcium 40 MG TAB PO SCH (23:40)
[2017-08-20 08:02] LABS: #Eosinphils 0.2 thou/uL (0.0-0.7); #Lymphocytes 2.4 thou/uL (1.20-3.40); #Monocytes 1.1 thou/uL (0.11-0.59); #Neutrophils 9.4 thou/uL (1.40-6.50); %Basophils 0.1 % (0.0-1.0); %Eosinophils 1.2 % (0.0-10.0); %Lymphocytes 18.1 % (21.0-51.0); %Monocytes 8.3 % (0.0-10.0); %Neutrophils 72.3 % (42.0-75.0); Hemoglobin 9.6 g/dL (12.0-16.0); Mean Corpuscular HGB CONC 33.2 g/dL (32.0-36.0); Mean Corpuscular Hemoglobin 30.7 pg (27.0-31.0); Mean Corpuscular Volume 92.4 fl (81.0-99.0); Mean Platelet Volume 7.4 fL (7.4-10.4); Platelet Count 293 thou/uL (130-400); RBC Distribution Width 12.2 % (11.5-14.5); Red Blood Cell (RBC) Count 3.11 mill/uL (4.20-5.40)
[2017-08-20 08:24] LABS: Anion Gap 18 mmol/L (10-20); BUN (Urea Nitrogen) 27 mg/dL (9.8-20.1); Calc. Creatinine Clearance 4 mL/min (70-130); Calcium 7.1 mg/dL (7.8-10.44); Carbon Dioxide 26 mmol/L (23-31); Chloride 95 mmol/L (98-107); Estimated GFR-MDRD 3; Glucose 96 mg/dL (83-110); Sodium 136 mmol/L (136-145)
[2017-08-20 08:31] LABS: Potassium 2.5 mmol/L (3.5-5.1)
[2017-08-20] MEDS: Sevelamer Carbonate 800 MG TAB PO SCH ×2 (08:32→13:36)
[2017-08-20] MEDS: Apixaban 2.5 MG TAB PO SCH (08:33)
[2017-08-20] MEDS: Metoprolol Tartrate 25 MG TAB PO SCH (08:33)
[2017-08-20] MEDS: Famotidine 20 MG TAB PO SCH (08:33)
[2017-08-20] MEDS: Cinacalcet HCl 30 MG TAB PO SCH (08:33)
[2017-08-20] MEDS ORDERED: Potassium Chloride 20 MEQ TAB PO SCH (10:30)
--- NOTE | 2017-08-20 11:39 | DIS ---
DATE OF ADMISSION: 08/17/2017 DATE OF DISCHARGE: 08/20/2017 PRIMARY CARE PROVIDER: Yessenia Lopez M.D. DISCHARGE DISPOSITION: Home. FINAL DIAGNOSES: New onset atrial fibrillation with rapid ventricular response; end-stage renal dise ase on peritoneal dialysis; coronary artery disease; hypokalemia; chronic anticoagulation; anemia of chronic disease and demand ischemia. DISCHARGE MEDICATIONS: Eliquis 2.5 mg p.o. b.i.d., aspirin 81 mg a day, Sensipar 60 mg a day, Renvel a 3200 mg 3 times a day, Lopressor 12.5 mg twice a day, Lipitor 20 mg at bedtime, Zoloft 100 mg in th e evening, alprazolam 0.25 mg q.8 hours p.r.n., metoclopramide 5 mg a.c. and at bedtime p.o. DIET: Renal. PENDING AT THE TIME OF DISCHARGE: Nothing. CODE STATUS: FULL. HOSPITAL COURSE: The patient admitted to [facility] with dysarthria and change in men ellis status. She was placed in the hospital. LABORATORY DATA: Initial studies; white count 12.8, hemoglobin 12.4, platelet count 328,000. INR 1. 1 and PTT 19.6. Comp metabolic profile, potassium 3.4, creatinine 13.35, BUN 32, and potassium 3.4. Troponins were elevated. First one 0.9 second was 0.169, third 0.739. The patient was noted to be in atrial fibrillation with rapid ventricular response, started on IV Car dizem. Cardiology was consulted. Regular animal husbandman is Dr. Medina. Dr. Ignacio responded on wayne l. Patient rapidly went back into sinus rhythm. Cardizem was discontinued. Her metoprolol was incr eased to 25 twice a day. Decision was made to put on Eliquis 2.5 mg a day. Her peritoneal dialysis was continued while she was in the hospital. Her marriage and family counselor, Dr. Maurisio Mercer was consulted and s aw her here. At current time, she is alert, oriented, cooperative. Add K-Dur 20 mEq per day to her discharge medications. She is to see her primary care provider in 1 week for followup. To continue her hemodialysis. Continue her peritoneal dialysis and see Dr. Mercer per his directions. No procedure s were done.
[2017-08-20 11:43] VITALS: BP 122/63; TEMP 98.1
--- NOTE | 2017-08-20 12:43 | PRG ---
DATE OF SERVICE: 08/20/2017 SERVICE: Renal Medicine. SUBJECTIVE: Ms. Schroeder is a 72-year-old female with ESRD on maintenance peritoneal dialysis. She was initially admitted for near syncopal episode. Cardiology has evaluated her. The evaluatio n of the MRI of the brain shows no acute CVA. She is feeling better. She is requesting to go home. No other complaints. PHYSICAL EXAMINATION: VITAL SIGNS: Blood pressure is 111/62, heart rate 52, respiratory rate 14, temperature 98, pulse ox 97%. GENERAL: Awake, alert, supine, comfortable. SKIN: Adequate turgor. HEENT: Slightly pale, pinkish conjunctivae, anicteric sclerae. NECK: No neck mass, no carotid bruits, no JVD. CHEST: No deformities. LUNGS: Clear breath sounds. No wheezing. No crackles. HEART: Normal sinus rhythm. No murmur, no gallops or rubs. ABDOMEN: Globular, soft, nontender, no masses. EXTREMITIES: No edema, no deformities. She has a PD catheter in the abdomen. MEDICATIONS: Of 08/20/2017 reviewed. LABORATORY: Of 08/20/2017, white count 13, hemoglobin 9.6. Sodium 136, potassium 2.5, chloride 95, carbon dioxide 26, BUN 27, creatinine 12.8, calcium 7.1. ASSESSMENT AND PLAN: 1. Hypokalemia, dietary advice. In addition, the patient will be given 1 time dose of KCl today. 2. End-stage renal disease, stable. Tolerating current peritoneal dialysis regimen. No changes coni l be made with her dialysis. 3. Near syncopal episode, resolved. Cardiology is following this patient. Please note a monitoring coordinator has been placed on the patient. Agree with planned discharge.
== END 2017-08-20 13:37 | disposition home or self-care (01) | DRG 308 ==
LOC: ERS 11:17 → 2NO 14:13 → 2SE 08-18 18:36
PROVIDERS: ADMIT Internal Medicine; ATTEND Internal Medicine
DX: I48.0 Paroxysmal atrial fibrillation (principal); N18.6 End stage renal disease; I12.0 Hypertensive chronic kidney disease with stage 5 chronic kidney disease or end stage renal disease; N25.81 Secondary hyperparathyroidism of renal origin; G45.9 Transient cerebral ischemic attack, unspecified; I25.10 Atherosclerotic heart disease of native coronary artery without angina pectoris; E78.5 Hyperlipidemia, unspecified; E87.6 Hypokalemia; D63.1 Anemia in chronic kidney disease; R47.1 Dysarthria and anarthria; Z99.2 Dependence on renal dialysis; E11.22 Type 2 diabetes mellitus with diabetic chronic kidney disease; E11.21 Type 2 diabetes mellitus with diabetic nephropathy; I25.2 Old myocardial infarction; Z95.1 Presence of aortocoronary bypass graft; Z90.49 Acquired absence of other specified parts of digestive tract; Z90.710 Acquired absence of both cervix and uterus
CPT/HCPCS: 36415; 36416; 70450; 70551; 80053; 80061; 82553; 83036; 84443; 84484; 85025; 85610; 85730; 87040; 90945; 93005; 93306; 93880; 96365; 96366; A4216; G0257; J1644; J2405; J7050; Q4081

== ENCOUNTER 2018-04-16 06:29 | Emergency (ER) | payer MEDICARE, MEDICAID | END 2018-04-16 06:55 | disposition home or self-care (01) | LOC: ERS 06:29 | DX: Z00.00 Encounter for general adult medical examination without abnormal findings (principal); I25.10 Atherosclerotic heart disease of native coronary artery without angina pectoris; E78.5 Hyperlipidemia, unspecified; I10 Essential (primary) hypertension; Z79.899 Other long term (current) drug therapy | CPT/HCPCS: 99283 ==

== ENCOUNTER 2018-07-09 16:19 | Inpatient (IN) | payer MEDICARE, MEDICAID ==
--- NOTE | 2018-07-09 16:45 | RAD ---
FRadiograph chest one view HISTORY: 72-year-old female with dyspnea FINDINGS: Sternotomy wires. Borderline or mild Cardiomegaly. Minimal pulmonary venous engorgement. Prominent in terstitial markings. No consolidation. Calcification and ectasia of thoracic aorta. No pneumothorax. IMPRESSION: Borderline or mild cardiomegaly and minimal pulmonary venous congestion.
[2018-07-09 17:51] LABS: #Basophils 0.1 thou/uL (0.0-0.2); #Eosinphils 0.2 thou/uL (0.0-0.7); #Lymphocytes 2.8 thou/uL (1.20-3.40); #Monocytes 0.9 thou/uL (0.11-0.59); #Neutrophils 7.3 thou/uL (1.40-6.50); %Basophils 0.7 % (0.0-1.0); %Eosinophils 1.4 % (0.0-10.0); %Lymphocytes 25.1 % (21.0-51.0); %Monocytes 7.6 % (0.0-10.0); %Neutrophils 65.1 % (42.0-75.0); Hemoglobin 8.5 g/dL (12.0-16.0); Mean Corpuscular HGB CONC 32.6 g/dL (32.0-36.0); Mean Corpuscular Hemoglobin 31.8 pg (27.0-31.0); Mean Corpuscular Volume 97.6 fL (78.0-98.0); Mean Platelet Volume 9.4 fL (7.4-10.4); Platelet Count 238 thou/uL (130-400); RBC Distribution Width 12.2 % (11.5-14.5); Red Blood Cell (RBC) Count 2.66 mill/uL (4.20-5.40); White Blood Cell (WBC) Count 11.2 thou/uL (4.8-10.8)
[2018-07-09 18:06] LABS: ALT (SGPT) 11 U/L (8-55); AST (SGOT) 18 U/L (5-34); Albumin 3.6 g/dL (3.4-4.8); Alkaline Phosphatase 150 U/L (40-150); Anion Gap 19 mmol/L (10-20); BUN (Urea Nitrogen) 44 mg/dL (9.8-20.1); Bilirubin, Total 0.6 mg/dL (0.2-1.2); Calc. Creatinine Clearance 0 mL/min (70-130); Calcium 9.5 mg/dL (7.8-10.44); Carbon Dioxide 28 mmol/L (23-31); Chloride 94 mmol/L (98-107); Estimated GFR-MDRD 3; Globulin 3.3 g/dL (2.4-3.5); Glucose 98 mg/dL (83-110); Potassium 3.6 mmol/L (3.5-5.1); Protein, Total 6.9 g/dL (6.0-8.3); Sodium 137 mmol/L (136-145)
[2018-07-09 18:36] LABS: CKMB 4.4 ng/mL (0-6.6)
[2018-07-09 18:46] LABS: INR-International Normal Ratio 1.1; PTT 29.7 SEC (22.9-36.1); Prothrombin Time 14.4 SEC (12.0-14.7)
[2018-07-09] MEDS ORDERED: Aspirin Chewable 81 MG TAB ONE (19:12)
[2018-07-09] MEDS ORDERED: Heparin 1,000 UNITS/ML VIAL ONE (19:49)
[2018-07-09] MEDS ORDERED: Heparin 25,000 units/D5W 500 ML ONE (19:49)
[2018-07-09 21:42] LABS: Critical Call Chem Troponin I RESULT DECREASING; Troponin I 4.303 ng/mL (< 0.028)
[2018-07-09 23:21] LABS: Troponin I 4.324 ng/mL (< 0.028)
[2018-07-09] MEDS ORDERED: HYDROcodone/Acetaminophen 5/325 mg Tablet PO PRN ×2 (23:43)
[2018-07-09] MEDS ORDERED: Ondansetron PF 4 MG/2 ML Vial IVP PRN (23:43)
[2018-07-09] MEDS ORDERED: Acetaminophen 325 MG TAB PO PRN (23:43)
[2018-07-09] MEDS ORDERED: Ondansetron ODT 4 MG TAB SL PRN (23:43)
[2018-07-10 00:22] VITALS: BMI 24.0
[2018-07-10] MEDS ORDERED: Diltiazem HCl 125 MG, Admixture Fee 1 EACH in Sodium Chloride 0.9% 100 ML IVPB SCH (00:30)
[2018-07-10] MEDS ORDERED: ALPRAZolam 0.25 MG TAB PO PRN (01:00)
[2018-07-10] MEDS ORDERED: Guaifenesin DM 100-10/5 ML UDCUP PO PRN (01:00)
[2018-07-10] MEDS ORDERED: Senokot S 8.6-50 MG TAB PO PRN (01:00)
[2018-07-10] MEDS ORDERED: Acetaminophen 325 MG TAB PO PRN (01:00)
[2018-07-10 01:22] LABS: Hemoglobin 8.7 g/dL (12.0-16.0); Platelet Count 220 thou/uL (130-400)
--- NOTE | 2018-07-10 01:35 | HP ---
REASON FOR ADMISSION: CHF exacerbation, atrial fibrillation with RVR. HISTORY OF PRESENTING ILLNESS: The patient gives history of feeling sick for the last 1 week. She has not been able to lie down or sleep. She has been sitting up all night to breathe better. She has been very short of breath. She was debating whether to come to ER from last one week. Finally, she went to see Dr. Lopez at [facility] this morning and was advised to go to the emergency room. No fever as such. No cough or expectoration. No complaints of chest pain. The patient was in sinus rhythm on arrival in the ER, but converted to AFib with RVR around midnight. PAST MEDICAL AND SURGICAL HISTORY: 1. Coronary artery bypass graft x3, AGARWAL to LAD, saphenous vein graft to OM, and calcified PDA. This was done in May of [address] Ricardo. 2. Echo in August of 2017 showed EF of 50% to 55%. There was moderate mitral regurgitation. Aortic valve was sclerotic. 3. End-stage renal disease, on peritoneal dialysis. 4. Hypertension. 5. Dyslipidemia. 6. Dialysis access procedures including peritoneal dialysis catheter placement. 7. Chronic anemia due to renal disease. CURRENT MEDICATIONS: 1. Calcitriol 0.25 mcg p.o. daily. 2. Toprol-XL 25 mg daily. 3. Norvasc 5 mg daily. 4. Atorvastatin 20 mg daily. 5. Xanax 0.25 mg q.8 hourly p.r.n. for anxiety. ALLERGIES: NO KNOWN DRUG ALLERGIES. PERSONAL HISTORY: Does not abuse alcohol or drugs. No history of smoking. FAMILY HISTORY: Mother at the age of 70 years, she has had history of coronary artery disease. Father of massive NM at the age of 42. CODE STATUS: Full. Power of ip technology transactions attorney is her son, Mr. Tony. REVIEW OF SYSTEMS: CONSTITUTIONAL: Negative for weight loss or gain, ability to conduct usual activities. SKIN: Negative for rash, itching. EYES: Negative for double vision, pain. ENT/MOUTH: Negative for nose bleeding, neck stiffness, pain, tenderness. CARDIOVASCULAR: Negative for palpitations, dyspnea on exertion, orthopnea. RESPIRATORY: Negative for shortness of breath, wheezing, cough, hemoptysis, fever or night sweats. GASTROINTESTINAL: Negative for poor appetite, abdominal pain, heartburn, nausea , vomiting, constipation, or diarrhea. GENITOURINARY: Negative for urgency, frequency, dysuria, nocturia. MUSCULOSKELETAL: Negative for pain, swelling. NEUROLOGIC/PSYCHIATRIC: Negative for anxiety, depression. ALLERGY/IMMUNOLOGIC: Negative for skin rash, bleeding tendency. PHYSICAL EXAMINATION: GENERAL: The patient is a 72-year-old female, who is currently not in any acute distress. VITAL SIGNS: Blood pressure 122/56, pulse 92 per minute, respiratory rate 20 per minute, temperature 98.9 degrees Fahrenheit, and saturating 98% on room air. NECK: Supple. No elevated JVD. HEENT: Eyes; extraocular muscles intact. Pupils reacting to light. Oral cavity, mucous membranes are moist. No exudates or congestion. CARDIOVASCULAR: S1 and S2 heard. Murmur plus. Irregular rhythm. RESPIRATORY: Air entry, 1+ bilateral. Scattered rales in the infrascapular area. ABDOMEN: Soft. Bowel sounds heard. There is a peritoneal dialysis catheter in place. EXTREMITIES: No peripheral edema or calf tenderness. VASCULAR: Peripheral pulses 1+ bilateral. No ischemic ulcerations or gangrene. CENTRAL NERVOUS SYSTEM: No gross focal deficits noted. The patient is alert, awake, and oriented well. PSYCHIATRIC: The patient's mood is euthymic. No hallucinations or delusions. LABORATORY DATA: White count of 11, H and H 8.5 and 26, platelet count is 238, MCV is 97. PT, INR, and PTT within normal limits. Serum bicarb 28, potassium 3.6, BUN 44, creatinine 13.9. Liver enzymes within normal limits. Troponin I was elevated at 4.42, CK-MB 4.4. BNP 3786. Albumin is 3.6. Chest x-ray done, shows mild pulmonary vascular congestion with cardiomegaly. EKG on arrival was normal sinus rhythm at 84 beats with signs of LVH. Around 12:30, the patient went into atrial fibrillation with RVR, around 146 beats per minute. CLINICAL IMPRESSION AND PLAN: The patient will be admitted to [facility] for atrial fibrillation with rapid ventricular response, congestive heart failure exacerbation, with likely volume overload. She has been started on heparin drip for a troponin of 4 and we will continue the same. She will also be on Cardizem drip 5 mg/hour for atrial fibrillation with rapid ventricular response. She will be on full-dose aspirin along with Coreg at 3.125 mg twice daily. We will continue her home dose of Lipitor, Xanax, sertraline, sevelamer, and Sensipar as before. Echo with 2D Doppler for LV function and to evaluate mitral valve will be obtained. Cardiology consultation with Dr. Mills who is rehab liaison will be obtained in the morning. I have spoken to Dr. Mercer who will be initiating peritoneal dialysis tonight. Job ID: [id number] [id number]
[2018-07-10] MEDS: Heparin 10,000 UNITS/ 10 ML VIAL SLOW IVP SCH ×3 (02:01→23:02)
[2018-07-10] MEDS ORDERED: Digoxin 0.5 MG/2 ML AMP SLOW IVP PRN (02:18)
[2018-07-10 04:45] LABS: #Basophils 0.1 thou/uL (0.0-0.2); #Eosinphils 0.2 thou/uL (0.0-0.7); #Monocytes 0.8 thou/uL (0.11-0.59); #Neutrophils 6.9 thou/uL (1.40-6.50); %Basophils 0.6 % (0.0-1.0); %Eosinophils 2.1 % (0.0-10.0); %Lymphocytes 27.4 % (21.0-51.0); %Monocytes 7.4 % (0.0-10.0); %Neutrophils 62.5 % (42.0-75.0); Hemoglobin 8.5 g/dL (12.0-16.0); Mean Corpuscular HGB CONC 32.7 g/dL (32.0-36.0); Mean Corpuscular Hemoglobin 31.7 pg (27.0-31.0); Mean Corpuscular Volume 96.9 fL (78.0-98.0); Mean Platelet Volume 9.5 fL (7.4-10.4); Platelet Count 249 thou/uL (130-400); RBC Distribution Width 12.2 % (11.5-14.5); Red Blood Cell (RBC) Count 2.69 mill/uL (4.20-5.40)
[2018-07-10 05:00] LABS: Albumin 3.6 g/dL (3.4-4.8); Anion Gap 21 mmol/L (10-20); BUN (Urea Nitrogen) 47 mg/dL (9.8-20.1); BUN/Creatinine Ratio 3.42; Calc. Creatinine Clearance 3 mL/min (70-130); Calcium 9.6 mg/dL (7.8-10.44); Carbon Dioxide 26 mmol/L (23-31); Chloride 94 mmol/L (98-107); Estimated GFR-MDRD 3; Glucose 145 mg/dL (83-110); Phosphorus 7.2 mg/dL (2.3-4.7); Potassium 3.9 mmol/L (3.5-5.1); Sodium 137 mmol/L (136-145)
[2018-07-10] MEDS ORDERED: Metoclopramide HCl 10 MG/2 ML VIAL IVP PRN (08:06)
[2018-07-10] MEDS ORDERED: Loratadine 10 MG TAB PO PRN (08:06)
[2018-07-10] MEDS ORDERED: Diabetic Tussin 200 MG/10 ML UDCUP PO PRN (08:06)
[2018-07-10] MEDS ORDERED: Sodium Chloride 0.65% Nasal 44 ML BOT EA NARE PRN (08:06)
[2018-07-10] MEDS ORDERED: Nitroglycerin 0.4 MG TAB (25 Tab Bottle) SL PRN (08:06)
[2018-07-10] MEDS ORDERED: Artificial Tears 18 DROP/0.9 ML EA EYE PRN (08:06)
[2018-07-10] MEDS ORDERED: Eucerin (Mineral Oil/Petrolatum,White) 30 gm Jar TOP PRN (08:06)
[2018-07-10] MEDS ORDERED: Zolpidem Tartrate 5 MG TAB PO PRN (08:06)
[2018-07-10] MEDS ORDERED: hydrALAZINE 20 MG/ML VIAL SLOW IVP PRN (08:06)
[2018-07-10] MEDS ORDERED: Loperamide HCl 2 MG CAP PO PRN (08:06)
[2018-07-10] MEDS ORDERED: Cepastat Lozenges 1 LOZ PO PRN (08:06)
[2018-07-10] MEDS: Aspirin 325 MG TAB PO SCH (08:54)
[2018-07-10] MEDS: Sevelamer Carbonate 800 MG TAB PO SCH ×3 (08:54→17:31)
[2018-07-10] MEDS: Cinacalcet HCl 30 MG TAB PO SCH (08:54)
[2018-07-10] MEDS: Carvedilol 3.125 MG TAB PO SCH ×2 (08:54→20:18)
--- NOTE | 2018-07-10 10:45 | PDOC.PN ---
- Subjective Encounter Start Date: 07/10/18 Encounter Start Time: 10:00 Patient seen and examined. No new complaints. No overnight events - Objective Resuscitation Status - Order Detail: 07/10/18 00:52 Resuscitation Status Routine Resuscitation Status: FULL: Full Resuscitation Discussed with: POA: son Mr.Nicolas NOBLE Reviewed: Yes Vital Signs & Weight: Vital Signs (12 hours) Temp Pulse Pulse Ox 07/10/18 10:29 98.2 F 07/10/18 08:00 98 07/10/18 07:04 97.6 F 07/10/18 04:00 98.9 F 07/10/18 02:44 141 H 07/09/18 23:45 98.4 F 95 Weight Weight 119 lb Most Recent Monitor Data Heart Rate from ECG 117 NIBP 145/106 NIBP BP-Mean 119 Respiration from ECG 14 SpO2 93 I&O: 07/09/18 07/10/18 07/11/18 06:59 06:59 06:59 Intake Total 480 Balance 480 Result Diagrams: 07/10/18 04:06 07/10/18 04:06 Radiology Reviewed by me: Yes EKG Reviewed by me: Yes Phys Exam - Physical Examination Constitutional: NAD HEENT: PERRLA, moist MMs, sclera anicteric Neck: no JVD, supple Respiratory: no wheezing, no rales, no rhonchi Cardiovascular: no significant murmur, irregular Gastrointestinal: soft, non-tender, no distention, positive bowel sounds Musculoskeletal: no edema, pulses present Neurological: non-focal, normal sensation Lymphatic: no nodes Psychiatric: normal affect, A&O x 3 Skin: no rash, normal turgor Dx/Plan (1) Acute on chronic diastolic ACC/AHA stage C congestive heart failure Code(s): I50.33 - ACUTE ON CHRONIC DIASTOLIC (CONGESTIVE) HEART FAILURE Status : Acute (2) Atrial fibrillation with RVR Code(s): I48.91 - UNSPECIFIED ATRIAL FIBRILLATION Status: Acute (3) Type [address] elevation Code(s): I21.A1 - MYOCARDIAL INFARCTION TYPE 2 Status: Acute (4) Anemia of renal disease Code(s): D63.1 - ANEMIA IN CHRONIC KIDNEY DISEASE Status: Chronic (5) Anxiety and depression Code(s): F41.9 - ANXIETY DISORDER, UNSPECIFIED; F32.9 - MAJOR DEPRESSIVE DISORDER, SINGLE EPISODE, UNSPECIFIED Status: Chronic (6) DM type 2 (diabetes mellitus, type 2) Status: Chronic Qualifiers: (7) Dyslipidemia Code(s): E78.5 - HYPERLIPIDEMIA, UNSPECIFIED Status: Chronic (8) ESRD on peritoneal dialysis Code(s): N18.6 - END STAGE RENAL DISEASE; Z99.2 - DEPENDENCE ON RENAL DIALYSIS Status: Chronic (9) HTN (hypertension) Code(s): I10 - ESSENTIAL (PRIMARY) HYPERTENSION Status: Chronic Qualifiers: (10) Moderate mitral regurgitation by prior echocardiogram Code(s): I34.0 - NONRHEUMATIC MITRAL (VALVE) INSUFFICIENCY Status: Chronic (11) Paroxysmal atrial fibrillation Code(s): I48.0 - PAROXYSMAL ATRIAL FIBRILLATION Status: Chronic Comment: (12) Secondary hyperparathyroidism of renal origin Code(s): N25.81 - SECONDARY HYPERPARATHYROIDISM OF RENAL ORIGIN Status: Chronic - Plan cont current plan of care * medication reviewed as below * symptomatic treatment * echo pending * cardiology consulted * overall pt is doing well. * continue heparin drip Review of Systems - Review of Systems ENT: negative: Ear Pain, Ear Discharge, Nose Pain, Nose Discharge, Nose Congestion, Mouth Pain, Mouth Swelling, Throat Pain, Throat Swelling, Other Respiratory: negative: Cough, Dry, Shortness of Breath, Hemoptysis, SOB with Excertion, Pleuritic Pain, Sputum, Wheezing Cardiovascular: negative: chest pain, palpitations, orthopnea, paroxysmal nocturnal dyspnea, edema, light headedness, other Gastrointestinal: negative: Nausea, Vomiting, Abdominal Pain, Diarrhea, Constipation, Melena, Hematochezia, Other Genitourinary: negative: Dysuria, Frequency, Incontinence, Hematuria, Retention , Other Musculoskeletal: negative: Neck Pain, Shoulder Pain, Arm Pain, Back Pain, Hand Pain, Leg Pain, Foot Pain, Other Skin: negative: Rash, Lesions, Bc, Bruising, Other - Medications/Allergies Allergies/Adverse Reactions: Allergies Allergy/AdvReac Type Severity Reaction Status Date / Time No Known Allergies Allergy Verified 07/10/18 00:24 Medications: Current Medications Acetaminophen (Tylenol) 650 mg PO Q4H PRN PRN Reason: Headache/Fever/Mild Pain (1-3) Alprazolam (Xanax) 0.25 mg PO Q8HR PRN PRN Reason: Anxiety Artificial Tears (Tears Naturale) 2 drop EA EYE PRN PRN PRN Reason: Dry Eyes Aspirin (Aspirin) 325 mg PO DAILY [facility] Last Admin: 07/10/18 08:54 Dose: 325 mg Atorvastatin Calcium (Lipitor) 20 mg PO HS [facility] Carvedilol (Coreg) 3.125 mg PO BID [facility] Last Admin: 07/10/18 08:54 Dose: 3.125 mg Cinacalcet (Sensipar) 60 mg PO DAILY [facility] Last Admin: 07/10/18 08:54 Dose: 60 mg Digoxin (Lanoxin) 0.5 mg SLOW IVP ONE PRN PRN Reason: if A.FIB SUSTAINED > 140 bpm Stop: 07/11/18 02:19 Last Admin: 07/10/18 02:44 Dose: 0.5 mg Guaifenesin (Robitussin Sf) 200 mg PO Q4H PRN PRN Reason: Cough Guaifenesin/Dextromethorphan (Robitussin Dm) 15 ml PO Q4H PRN PRN Reason: Cough Heparin Sodium (Porcine) (Heparin 1,000 Units/Ml (10 Ml)) 0 units SLOW IVP ASDIR [facility]; Protocol Last Admin: 07/10/18 02:01 Dose: 1,632 unit Hydralazine HCl (Apresoline) 10 mg SLOW IVP Q4H PRN PRN Reason: SBP > 180 and HR < 70 Heparin Sodium/Dextrose (Heparin 25,000 Units/D5w 500 Ml) 500 mls @ 0 mls/hr IVPB INF [facility]; Protocol Loperamide HCl (Imodium) 2 mg PO PRN PRN PRN Reason: Diarrhea/Loose Stools Loratadine (Claritin) 10 mg PO DAILYPRN PRN PRN Reason: Sinus Symptoms Metoclopramide HCl (Reglan) 5 mg IVP Q4H PRN PRN Reason: Nausea Mineral Oil/White Petrolatum (Eucerin Cream) 0 gm TOP BIDPRN PRN PRN Reason: Dry Skin Nitroglycerin (Nitrostat) 0.4 mg SL Q5MIN PRN PRN Reason: Chest Pain Senna/Docusate Sodium (Senokot S) 2 tab PO BID PRN PRN Reason: Constipation Sertraline HCl (Zoloft) 100 mg PO QPM [facility] Sevelamer Carbonate (Renvela) 3,200 mg PO TID[facility] Last Admin: 07/10/18 08:54 Dose: Not Given Sodium Chloride (Flush - Normal Saline) 10 ml IVF Q12HR [facility] Last Admin: 07/10/18 08:54 Dose: 10 ml Sodium Chloride (Flush - Normal Saline) 10 ml IVF PRN PRN PRN Reason: Saline Flush Sodium Chloride ([place] Nasal [place] 0.65%) 0 ml EA NARE QIDPRN PRN PRN Reason: Nasal Congestion Throat Lozenges (Cepastat Lozenges) 1 margo PO Q2H PRN PRN Reason: Sore Throat Zolpidem Tartrate (Ambien) 5 mg PO HSPRN PRN PRN Reason: Insomnia
[2018-07-10] MEDS ORDERED: Epoetin (ESRD) 20,000 UNITS/ML SC SCH (11:00)
--- NOTE | 2018-07-10 12:13 | CON ---
DATE OF CONSULTATION: HISTORY OF PRESENT ILLNESS: Ms. Schroeder is a 72-year-old female with ESRD , admitted for shortness of breath. We initiated peritoneal dialysis last night. Due to the volume overload, I used 2.5% PD solution alternating with 4.25% PD solution to enhance ultrafiltration. She is still undergoing peritoneal dialysis. Shortness of breath is a little better. REVIEW OF SYSTEMS: No chest pain. Positive for shortness of breath. Positive for anxiety. No nausea. No vomiting. No syncopal episode. No fever or chills. No productive cough. No gross hematuria. No dysuria. No urinary frequency. No abdominal pain. Appetite and energy level are decreased. Occasional joint pains. HOME MEDICATIONS: Include; 1. Calcitriol 0.25 mcg daily. 2. Toprol 25 mg daily. 3. Norvasc 5 mg once a day. 4. Atorvastatin 20 mg tablet at bedtime. 5. Xanax 0.25 mg q.8 p.r.n. PAST MEDICAL HISTORY: Coronary artery disease, longstanding hypertension, ESRD - on peritoneal dialysis, history of anxiety, and secondary hyperparathyroidism. History of irritable bowel syndrome, status post SC, coronary artery disease, hyperlipidemia, and type 2 diabetes mellitus. PAST SURGICAL HISTORY: Status post cardiac cath, status post CABG, status post laparoscopic cholecystectomy, status post PD catheter placement, status post upper and lower GI endoscopy, status post cardiac cath with coronary stent placement, and status post hysterectomy secondary to dysfunctional uterine bleeding. SOCIAL HISTORY: The patient lives in [place]. Four children. Currently lives alone. She is . No smoking. No alcohol. No IV drug abuse. Status post blood transfusion. Sedentary lifestyle. ALLERGIES: NONE. TRAUMA: None. IMMUNIZATION: Up-to-date. HOSPITALIZATIONS: Please see past medical history. FAMILY HISTORY: No family history of ESRD. PHYSICAL EXAMINATION: VITAL SIGNS: Blood pressure is 145/106, heart rate 117, respiratory rate 14, and temperature 98.3. GENERAL: Noted to be awake, alert, supine, and comfortable. SKIN: Adequate turgor. HEENT: The patient has a pale conjunctivae. Anicteric sclerae. NECK: No neck mass. No carotid bruits. No JVD. CHEST: No deformities. LUNGS: Clear breath sounds. No wheezing. No crackles. HEART: Irregularly irregular. Grade 2/6 systolic murmur. No gallops. No rubs. ABDOMEN: Globular, soft, and nontender. No masses. EXTREMITIES: No edema. No deformities. NEUROLOGIC: Moving all extremities. No tremors. No asterixis. No ataxia. HOSPITAL MEDICATIONS: Hospital medications were updated. She is now on digoxin 0.5 mg IV p.r.n. She is on a heparin drip. LABORATORY DATA: Laboratories of July 10, 2018, hemoglobin 8.5. Sodium 137, potassium 3.9, chloride 94, carbon dioxide 26, BUN 47, creatinine 13.73, glucose 145, calcium 9.6, and phosphorus 7.2. Troponin I is 4.324 and BNP is 3786. Chest x-ray of July 09, 2018, was reviewed - shows minimal pulmonary venous congestion. ASSESSMENT AND PLAN: 1. Congestive heart failure - started on peritoneal dialysis. Continuing a 4.25 % and 2.5% PD solution. My bias is tonight to change her to just 2.5% PD solution. 2. Non-ST segment elevation myocardial infarction - Cardiology consult has been done. 3. Atrial fibrillation, currently on heparin drip. On p.r.n. digoxin. 4. End-stage renal disease, stable. Continuing current nocturnal dialysis - peritoneal dialysis using 2.5% PD solution using a 2 L fill volume. 5. Anemia. Start Epogen - 7500 units subcu every week. 6. Hyperphosphatemia. Start Renvela 800 mg 3 tablets t.i.d. with meals. Job ID: [id number] MTDD
--- NOTE | 2018-07-10 13:21 | CON ---
DATE OF CONSULTATION: 07/10/2018 REASON FOR CONSULTATION: Elevated troponin, atrial fibrillation with RVR. PRIMARY NETBACKUP ADMINISTRATOR: Sebastian Medina MD HISTORY OF PRESENT ILLNESS: Ms. Schroeder is a very pleasant 72-year-old woman with a previous history of CAD, status post AK in addition to bypass surgery. I have reviewed her films from 2017. She presented with acute myocardial infarction and underwent multiple stent placements to the right coronary artery. She was also found to have severe left main disease. She underwent successful bypass surgery with AGARWAL to the LAD, saphenous vein graft to an OM, and saphenous vein graft to a calcified PDA. She had undergone bare-metal stent placement in a long segment to the right coronary artery. She re-presented with not feeling well. This has been noted over the last week. No specific complaints. No specific chest pain or pressure. She did have associated shortness of breath. She was found to be in atrial fibrillation with RVR. She also had markedly elevated troponin of 4.3. She is currently feeling well with no current complaints. CURRENT MEDICATIONS: Include: 1. Plavix. 2. Atorvastatin. 3. Zoloft. 4. Aspirin. 5. Vitamin D3. 6. Sensipar. 7. Renvela. 8. Calcitriol. 9. Metoprolol. 10. Potassium. 11. Sertraline. PAST MEDICAL HISTORY: End-stage renal disease, on peritoneal dialysis. ALLERGIES: NONE. PAST SURGICAL HISTORY: Bare-metal stent placement, as described above, and including bypass x3. SOCIAL HISTORY: No current tobacco or alcohol use. REVIEW OF SYSTEMS: A 10-point review of systems is reviewed and as above, otherwise negative. PHYSICAL EXAMINATION: GENERAL: Patient is a pleasant woman who is in no acute distress. The patient appears their stated age. VITAL SIGNS: Blood pressure 145/106, pulse 117, and temperature afebrile. NEUROLOGIC: The patient is alert and oriented x3 with no focal neurologic deficits. HEENT: Sclerae without icterus. Mouth has moist mucous membranes with normal pallor. NECK: No JVD. Carotid upstroke brisk. No bruits bilaterally. LUNGS: Clear to auscultation with unlabored respirations. BACK: No scoliosis or kyphosis. CARDIAC: Regular rate and rhythm with normal S1 and S2. No S3 or S4 noted. No significant rubs, murmurs, thrills, or gallops noted throughout the precordium. PMI is not displaced. There is no parasternal heave. ABDOMEN: Soft, nontender, nondistended. No peritoneal signs present. No hepatosplenomegaly. No abnormal striae. EXTREMITIES: 2+ femoral and 2+ dorsalis pedis pulses. No cyanosis, clubbing, or edema. SKIN: No gross abnormalities. PERTINENT LABORATORY DATA: Troponin 4.3, creatinine 13, and BUN 47. Hemoglobin 8.5. IMPRESSION: 1. Likely, type 2 myocardial infarction. 2. Atrial fibrillation with rapid ventricular response. 3. Coronary artery disease. 4. Status post bypass surgery. RECOMMENDATIONS: Certainly difficult situation on how to address multiple cardiac issues with Ms. Schroeder. She did have atrial fibrillation with RVR and is now in sinus rhythm. We will treat aggressively with Multaq versus amiodarone. She did have elevated troponin of 4.0, which is certainly a concern. We will review her echo. May need to proceed with a repeat angio, although with a hemoglobin of 8.5, may be difficult. At this point, we will continue rate control and monitoring closely. She does not appear to be actively bleeding and decrease in her hemoglobin may be secondary to a decrease in erythropoietin from her renal disease. Continue atorvastatin, aspirin, and carvedilol in addition to heparin. Job ID: [id number]
[2018-07-10] MEDS: Atorvastatin Calcium 20 MG TAB PO SCH (20:18)
--- NOTE | 2018-07-11 01:01 | CON ---
DATE OF CONSULTATION: 07/10/2018 HISTORY OF PRESENT ILLNESS: Ms. Schroeder is a peritoneal dialysis patient, who came in with shortness of breath. She had her dialysate changed and says her shortness of breath is much better. She had an echocardiogram done today, which shows an ejection fraction of 35% to 40%. She does have severe mitral regurgitation, moderate aortic stenosis, [id number] aortic regurgitation. PAST MEDICAL HISTORY: Remarkable for: 1. End-stage renal disease. She has been on peritoneal dialysis for 9 years. 2. Coronary artery bypass grafting last year with a AGARWAL to LAD, graft to her OM , and graft to her PDA. 3. History of normal ejection fraction in August of last year with moderate mitral regurgitation. 4. History of hypertension. 5. Lipid disorder. 6. History of multiple dialysis access procedures. 7. Anemia of chronic disease. SOCIAL HISTORY: She is nonsmoker, nondrinker. ALLERGIES: NO DRUG ALLERGIES. MEDICATIONS: Prior to admission, she is on calcitriol, Toprol, Norvasc, atorvastatin, and Xanax. FAMILY HISTORY: Positive for vascular disease. REVIEW OF SYSTEMS: 10 point review of systems completed, otherwise negative. PHYSICAL EXAMINATION: GENERAL: She is very pleasant. She is ambulating with physical therapy. She is in no distress. VITAL SIGNS: Blood pressure 125/63, heart rate 77. She is afebrile. Respiratory rates in the teens. HEENT: Pupils are equal. Sclerae are anicteric. NECK: Supple. No lymphadenopathy. LUNGS: Clear. HEART: Regular rhythm. S1 and S2 are normal. She has a grade 2-3/6 systolic murmur. ABDOMEN: Soft and nontender. EXTREMITIES: Without clubbing, cyanosis, or edema. IMAGING STUDIES: Chest radiograph surprisingly did not show pulmonary edema. LABORATORY DATA: White count 11, hemoglobin 8.5, and platelets 249. Sodium 137 , potassium 3.9, chloride 94, bicarb 26, BUN 47, and creatinine 13.7. BNP was 3786. IMPRESSION AND PLAN: Congestive heart failure with significant worsening of her mitral valve by my review of the echo. I suspect that combined with perhaps some volume overload led to her symptoms which have now improved. It would be unusual for the other possibilities if she developed some ischemia, even though she only had surgery year and a half ago. I think this is less likely. I will be happy to follow the other physicians caring for her. TIME SPENT: This is a 50-minute consult, with greater than 50% of the time spent on the unit coordinating care. Job ID: [id number]
[2018-07-11] MEDS: Heparin 25,000 units/D5W 500 ML IVPB SCH (03:22)
[2018-07-11] MEDS: Sevelamer Carbonate 800 MG TAB PO SCH ×3 (09:22→18:23)
[2018-07-11] MEDS: Carvedilol 3.125 MG TAB PO SCH ×2 (09:23→20:45)
[2018-07-11] MEDS: Aspirin 325 MG TAB PO SCH (09:23)
[2018-07-11] MEDS: Cinacalcet HCl 30 MG TAB PO SCH (09:23)
--- NOTE | 2018-07-11 11:16 | PDOC.CTH ---
Cardiology Progress Note - Subjective pt without complaints. In SR - Objective Vital Signs Temp Pulse Ox 07/11/18 08:00 98.8 F 97 07/11/18 03:28 97.4 F L 92 L 07/11/18 00:55 97.7 F 07/11/18 00:00 94 L Weight 110 lb 11.2 oz 07/10/18 07/11/18 07/12/18 06:59 06:59 06:59 Intake Total 480 1440 Output Total 2700 Balance 480 -1260 - Physical Examination General/Neuro: NAD Neck: carotid US brisk, no JVD present Lungs: unlabored respirations Heart: RRR Abdomen: no HSM, NT/ND, soft Extremities: + femoral B - Telemetry Telemetry Rhythm: SR - Labs Result Diagrams: 07/10/18 04:06 07/10/18 04:06 Troponin/CKMB CK-MB (CK-2) 4.4 ng/mL (0-6.6) 07/09/18 17:18 Troponin I 4.324 ng/mL (< 0.028) H* 07/09/18 22:37 - Assessment/Plan afib Elevated troponin ESRD CAD S/p CABG Will discuss with Dr. Medina on angio vs conservative treatment Pt at this point not interested in repeat angio Pt with increase HR from afib that likely caused increased troponin Pt with extensive stent placement to the RCA and likely has restenosed or graft to the RCA is occluded (calcified anastomosis of the graft) Amiodarone po to less recurrence of afib will need chcf ACT
--- NOTE | 2018-07-11 11:32 | PDOC.PN ---
- Subjective Encounter Start Date: 07/11/18 (f/u nausea) Encounter Start Time: 11:31 Subjective: Pt with n/v/diarrhea yesterday and overnight. Denies any chest pain -: or difficulty breathing currently - feeling better. Denies any nausea -: currently - Objective Resuscitation Status - Order Detail: 07/10/18 00:52 Resuscitation Status Routine Resuscitation Status: FULL: Full Resuscitation Discussed with: POA: son Vital Signs & Weight: Vital Signs (12 hours) Temp Pulse Ox 07/11/18 08:00 98.8 F 97 07/11/18 03:28 97.4 F L 92 L 07/11/18 00:55 97.7 F 07/11/18 00:00 94 L Weight Weight 110 lb 11.2 oz Most Recent Monitor Data Heart Rate from ECG 74 NIBP 125/69 NIBP BP-Mean 87 Respiration from ECG 19 SpO2 98 I&O: 07/10/18 07/11/18 07/12/18 06:59 06:59 06:59 Intake Total 480 1440 Output Total 2700 Balance 480 -1260 Result Diagrams: 07/10/18 04:06 07/10/18 04:06 EKG Reviewed by me: Yes (tele - sinus 60's with pac's and pvc's) Phys Exam - Physical Examination Constitutional: NAD Respiratory: no wheezing, no rales, no rhonchi Cardiovascular: RRR 3/6 CATHI throughout precordium Gastrointestinal: soft, non-tender, no distention, positive bowel sounds Musculoskeletal: no edema Neurological: non-focal, moves all 4 limbs Psychiatric: normal affect Skin: no rash Dx/Plan (1) Type [address] elevation Code(s): I21.A1 - MYOCARDIAL INFARCTION TYPE 2 Status: Acute (2) Atrial fibrillation with RVR Code(s): I48.91 - UNSPECIFIED ATRIAL FIBRILLATION Status: Resolved (3) Anemia of renal disease Code(s): D63.1 - ANEMIA IN CHRONIC KIDNEY DISEASE Status: Chronic (4) Anxiety and depression Code(s): F41.9 - ANXIETY DISORDER, UNSPECIFIED; F32.9 - MAJOR DEPRESSIVE DISORDER, SINGLE EPISODE, UNSPECIFIED Status: Chronic (5) Dyslipidemia Code(s): E78.5 - HYPERLIPIDEMIA, UNSPECIFIED Status: Chronic (6) ESRD on peritoneal dialysis Code(s): N18.6 - END STAGE RENAL DISEASE; Z99.2 - DEPENDENCE ON RENAL DIALYSIS Status: Chronic (7) HTN (hypertension) Code(s): I10 - ESSENTIAL (PRIMARY) HYPERTENSION Status: Chronic Qualifiers: - Plan * Appreciate consultants - Cardiology - on heparin with possible procedure tomorrow * Nephro - PD dialysis with adjustment in settings * Pulmonology - following * No change to home meds * * c diff testing ordered for reported diarrhea * * dvt prophy - on full dose heparin * gi prophy - not indicated * code status full * * reviewed plan of care with patient, no questions or further needs at end of eval * pt remains at high risk in current condition.
--- NOTE | 2018-07-11 12:08 | PRG ---
DATE OF SERVICE: 07/11/2018 SUBJECTIVE: Ms. Schroeder says she has felt much better. For the first time, she slept flat in bed in 3 weeks. OBJECTIVE: VITAL SIGNS: Blood pressure 125/60, heart rate 74, respiratory rate 18, oximetry is 98%. LUNGS: Clear. HEART: Regular rhythm. She is in sinus rhythm. ABDOMEN: Soft and nontender. DIAGNOSTIC DATA: PTT 72. Electrolytes are unremarkable. Potassium 3.9 today, BUN 47, creatinine is 13.7. White count yesterday was 11, hemoglobin had been 8.5, 8.7, and 8.5. There is no CBC today. I will order one for tomorrow morning. IMPRESSION: 1. Volume overload, improved after changing her peritoneal dialysis concentration. 2. Atrial fibrillation, back in sinus rhythm. 3. ? recurrent coronary issues. She is heparinized now and may have cardiac catheterization tomorrow. We will continue to follow. She appears to be slightly improving every day. Job ID: [id number]
--- NOTE | 2018-07-11 12:13 | PRG ---
DATE OF SERVICE: SUBJECTIVE: Ms. Schroeder is a 72-year-old female with ESRD - on maintenance peritoneal dialysis, was admitted for shortness of breath. We did use 4.25% PD solution alternating with 2.5% PD solution to enhance ultrafiltration. Breathing is much better. She did have some cramping initially. We have changed her now to a 2.5% PD solution. I feel that this solution will still enhance ultrafiltration. Her shortness of breath is much improved. Cardiology has evaluated the patient. The plan is either to repeat the cardiac cath or just continue conservative management with her. She also has an increased heart rate that may explain the elevated troponin. OBJECTIVE: VITAL SIGNS: Blood pressure is 125/69, heart rate 74, respiratory rate 19. GENERAL: She is awake, alert, comfortable, not in distress. SKIN: Adequate turgor. HEENT: She has a slightly pale conjunctivae. Anicteric sclerae. NECK: No neck mass. No carotid bruits. No JVD. CHEST: No deformities. LUNGS: Decreased breath sounds. HEART: Tachycardic. No murmur. No gallops or rubs. ABDOMEN: Globular, soft, nontender. No masses. EXTREMITIES: No edema. No deformities. Please note she has a PD catheter. MEDICATIONS: Medications of July 11, 2018, reviewed. LABORATORY DATA: Laboratories of July 10, 2018; white count 11, hemoglobin 8.5. Sodium 137, potassium 3.9, chloride 94, carbon dioxide 26, BUN 47, creatinine 13.7, glucose 145, phosphorus is 7.2. TSH 2.3. ASSESSMENT AND PLAN: 1. Congestive heart failure, clinically much improved with adjustment of the peritoneal dialysis solution. Continue current management. 2. End-stage renal disease. We will continue current continuous cycling peritoneal dialysis regimen. We are using a 2.5% peritoneal dialysis solution. Fluid removal only as tolerated. 3. Elevated troponin I - most likely related to her tachycardia. Cardiology is following. 4. Shortness of breath - Cardiology currently evaluating whether the patient may need to undergo cardiac cath. 5. Anemia. Continuing weekly Epogen. Job ID: [id number]
[2018-07-11] MEDS: Heparin 10,000 UNITS/ 10 ML VIAL SLOW IVP SCH (12:26)
[2018-07-11] MEDS: Atorvastatin Calcium 20 MG TAB PO SCH (20:45)
[2018-07-12 01:07] LABS: Hemoglobin 8.6 g/dL (12.0-16.0); Platelet Count 270 thou/uL (130-400)
[2018-07-12] MEDS: Heparin 25,000 units/D5W 500 ML IVPB SCH (03:40)
[2018-07-12 05:05] LABS: #Eosinphils 0.2 thou/uL (0.0-0.7); #Lymphocytes 2.5 thou/uL (1.20-3.40); #Monocytes 0.9 thou/uL (0.11-0.59); #Neutrophils 6.7 thou/uL (1.40-6.50); %Basophils 0.4 % (0.0-1.0); %Eosinophils 1.9 % (0.0-10.0); %Monocytes 8.8 % (0.0-10.0); %Neutrophils 64.9 % (42.0-75.0); Mean Corpuscular HGB CONC 33.1 g/dL (32.0-36.0); Mean Corpuscular Hemoglobin 32.6 pg (27.0-31.0); Mean Corpuscular Volume 98.3 fL (78.0-98.0); Mean Platelet Volume 9.2 fL (7.4-10.4); Platelet Count 280 thou/uL (130-400); RBC Distribution Width 12.3 % (11.5-14.5); Red Blood Cell (RBC) Count 2.76 mill/uL (4.20-5.40); White Blood Cell (WBC) Count 10.3 thou/uL (4.8-10.8)
[2018-07-12 05:15] LABS: Anion Gap 22 mmol/L (10-20); BUN (Urea Nitrogen) 40 mg/dL (9.8-20.1); Calc. Creatinine Clearance 3 mL/min (70-130); Calcium 7.6 mg/dL (7.8-10.44); Carbon Dioxide 28 mmol/L (23-31); Chloride 93 mmol/L (98-107); Estimated GFR-MDRD 3; Glucose 111 mg/dL (83-110); Potassium 3.3 mmol/L (3.5-5.1); Sodium 140 mmol/L (136-145)
[2018-07-12 05:18] LABS: Band 4 % (5-11); Hypochromia SLIGHT = 6-15 cells (100X) (0-5/hpf); Lymphocytes 24 % (21-51); MDiff Complete? YES; Mean Corpuscular HGB CONC 33.2 g/dL (32.0-36.0); Mean Corpuscular Hemoglobin 32.7 pg (27.0-31.0); Mean Corpuscular Volume 98.5 fL (78.0-98.0); Mean Platelet Volume 9.1 fL (7.4-10.4); Monocytes 10 % (0-10); Neutrophil 62 % (42-75); Platelet Count 283 thou/uL (130-400); Platelet Morphology Comment Appears Adequate; RBC Distribution Width 12.3 % (11.5-14.5); Red Blood Cell (RBC) Count 2.76 mill/uL (4.20-5.40); White Blood Cell (WBC) Count 10.2 thou/uL (4.8-10.8)
[2018-07-12] MEDS ORDERED: Communication Order-Pharmacy FS SCH ×2 (08:15→19:30)
[2018-07-12 09:02] VITALS: BP 109/51
[2018-07-12] MEDS ORDERED: Potassium Chloride 20 MEQ TAB PO SCH (09:30)
--- NOTE | 2018-07-12 09:46 | PRG ---
DATE OF SERVICE: 07/12/2018 SUBJECTIVE: Ms. Schroeder is a 72-year-old female with ESRD and was admitted for congestive heart failure. Cardiology has evaluated the patient. The plan is for her to undergo a cardiac cath this morning. We are following her up for maintenance peritoneal dialysis. She is tolerating said treatment. No changes to be made with the current PD regimen. Denies any chest pain or shortness of breath at the present time. OBJECTIVE: VITAL SIGNS: Blood pressure 109/51, heart rate 67, respiratory rate 20, pulse ox 100%. GENERAL: Awake, alert, supine comfortable. SKIN: Adequate turgor. HEENT: Slightly pale conjunctivae. Anicteric sclerae. No neck mass. No carotid bruits. No JVD. CHEST: No deformities. LUNGS: Clear breath sounds. No wheezing. No crackles. HEART: Normal sinus rhythm. No murmur. No gallops. No rubs. ABDOMEN: Globular, soft, nontender. No masses. Positive for PD catheter. EXTREMITIES: No edema. No deformities. MEDICATIONS: Medications of July 12, 2018 reviewed. LABORATORY DATA: Laboratories of July 12, 2018; white count 10.3, hemoglobin 9.0. Sodium 140, potassium 3.3, chloride 93, carbon dioxide 28, BUN 40, creatinine 14.03, calcium 7.6, glucose 111, TSH 2.3. ASSESSMENT AND PLAN: 1. Shortness of breath-elevated troponin I-the patient will undergo cardiac catheterization. 2. End-stage renal disease, stable. We will continue current peritoneal dialysis regimen. Tolerating said treatment. Continuing 2.5% PD solution. 3. Anemia. Continuing weekly Epogen. 4. Mild hypokalemia. P.r.n. potassium replacement. We will give KCl 40 mEq one tablet now. Job ID: [id number]
[2018-07-12] MEDS ORDERED: Iopamidol 370 76% 100 ML VIAL ONE (10:11)
[2018-07-12] MEDS ORDERED: Iopamidol 370 76% 50 ML VIAL FS ONE (10:11)
[2018-07-12] MEDS ORDERED: Fentanyl 100 MCG/2 ML VIAL ONE (10:12)
[2018-07-12] MEDS ORDERED: Midazolam HCl 2 mg/2 ml Vial ONE (10:12)
[2018-07-12 11:21] LABS: Cardiac Risk 4.4 (Less than 4.5)
[2018-07-12] MEDS ORDERED: Acetaminophen/Codeine 30-300mg Tablet PO PRN ×2 (11:33)
[2018-07-12] MEDS ORDERED: Nitroglycerin 0.4 MG TAB (25 Tab Bottle) SL PRN (11:33)
[2018-07-12] MEDS ORDERED: Sodium Chloride 0.9% 200 ML IV PRN (11:33)
--- NOTE | 2018-07-12 11:42 | PRG ---
DATE OF SERVICE: 07/12/2018 SUBJECTIVE: [place] Schroeder was undergoing her last dual of her peritoneal dialysis this morning. She is lying flat in bed. Denied shortness of breath. OBJECTIVE: VITAL SIGNS: She is afebrile, heart rate 67, respiratory rate 20, oximetry is 100% on room air, blood pressure 109/51. LUNGS: Clear. HEART: Regular rhythm. LABORATORY DATA: White count 10.3, hemoglobin 9.0, platelets 280. Sodium 140, potassium 3.3, chloride 93, bicarb 28, BUN 40, and creatinine 14. IMPRESSION: 1. Volume overload, resolved with one episode of high concentration dialysate that led to volume removal. 2. Atrial fibrillation. 3. End-stage renal disease on peritoneal dialysis for 9 years. 4. History of coronary artery disease, status post coronary artery bypass grafting. 5. She is still on a heparin drip. 6. She is currently being evaluated for possible cardiac catheterization versus medical management. Job ID: [id number]
[2018-07-12] MEDS: Cinacalcet HCl 30 MG TAB PO SCH (11:51)
[2018-07-12] MEDS: Sevelamer Carbonate 800 MG TAB PO SCH ×3 (11:51→17:48)
[2018-07-12] MEDS: Amiodarone 200 MG TAB PO SCH ×2 (11:52→20:38)
[2018-07-12] MEDS: Carvedilol 3.125 MG TAB PO SCH (11:52)
[2018-07-12] MEDS: Aspirin 325 MG TAB PO SCH (11:52)
--- NOTE | 2018-07-12 14:26 | PRG ---
DATE OF SERVICE: 07/12/2018 SUBJECTIVE: The patient is seen and examined at the bedside. She just came back from a labor relations manager. Apparently, there is some blockage because the cardiothoracic surgeon is called in to see the patient. We do not have final report on her from the labor relations manager yet. OBJECTIVE: VITAL SIGNS: Blood pressure is 102/49, pulse is 59, respiratory rate is 12, temperature 99.2. HEENT: Head is atraumatic and normocephalic. Eyes are PERRLA. Sclerae are nonicteric. Oral mucosa is moist. NECK: Supple. LUNGS: Clear. HEART: S1 and S2 are normal. No S3. No S4. There is a systolic murmur over precordium, 2/6 to 3/6. ABDOMEN: Soft and nontender. PD catheter in place. EXTREMITIES: No clubbing, cyanosis, or edema. NEUROLOGIC: She follows my commands. She moves all 4 extremities. There are no any motor or sensory deficits. Cranial nerves are intact. LABORATORY DATA: Showed white count of 10.3, hemoglobin 9.0, hematocrit 27.1, platelet count 280,000. Sodium of 140, potassium 3.3, chloride 93, BUN 40, creatinine 14.03, glucose 111, calcium 7.6. The rest of chemistry within normal limits. Microbiology: Clostridium difficile toxins, negative. IMPRESSION: 1. Kkf-YP-[id number] myocardial infarction, status post cardiac catheterization. We are waiting for the final report. 2. Atrial fibrillation with rapid ventricular response, resolved. 3. Anemia of renal disease, chronic. 4. Anxiety and depression. 5. Dyslipidemia. 6. End-stage renal disease, on peritoneal dialysis for the last 9 years. 7. Hypertension. PLAN: As mentioned above, we are waiting for final report on her cardiac catheterization done this morning, and we were told that there were some blockages and the cardiothoracic surgeon is asked to see the patient. She had bypass done in 2018, by Dr. Ricardo. For now, we will continue current regimen with aspirin, statin, Coreg, Procrit, and Sensipar along with amiodarone. Job ID: [id number]
[2018-07-12] MEDS ORDERED: Atorvastatin Calcium 40 MG TAB PO SCH (21:00)
[2018-07-12] MEDS ORDERED: Ondansetron PF 4 MG/2 ML Vial IVP PRN (23:55)
[2018-07-13 03:59] VITALS: TEMP 97.6
[2018-07-13 05:48] LABS: Anion Gap 23 mmol/L (10-20); BUN (Urea Nitrogen) 38 mg/dL (9.8-20.1); Calc. Creatinine Clearance 3 mL/min (70-130); Calcium 7.4 mg/dL (7.8-10.44); Carbon Dioxide 27 mmol/L (23-31); Chloride 93 mmol/L (98-107); Estimated GFR-MDRD 3; Glucose 96 mg/dL (83-110); Potassium 3.9 mmol/L (3.5-5.1); Sodium 139 mmol/L (136-145)
[2018-07-13 05:50] LABS: Band 4 % (5-11); Eosinophils 2 % (0-10); Hemoglobin 9.2 g/dL (12.0-16.0); Lymphocytes 23 % (21-51); MDiff Complete? YES; Mean Corpuscular HGB CONC 32.5 g/dL (32.0-36.0); Mean Corpuscular Hemoglobin 32.1 pg (27.0-31.0); Mean Corpuscular Volume 98.7 fL (78.0-98.0); Mean Platelet Volume 8.9 fL (7.4-10.4); Monocytes 8 % (0-10); Neutrophil 63 % (42-75); Platelet Count 299 thou/uL (130-400); Platelet Morphology Comment Appears Adequate; RBC Distribution Width 12.9 % (11.5-14.5); Red Blood Cell (RBC) Count 2.86 mill/uL (4.20-5.40); White Blood Cell (WBC) Count 12.8 thou/uL (4.8-10.8)
[2018-07-13] MEDS: Amiodarone 200 MG TAB PO SCH (06:47)
[2018-07-13] MEDS ORDERED: Heparin 10,000 UNITS/1 ML VIAL ONE (06:59)
[2018-07-13] MEDS ORDERED: Midazolam HCl 2 mg/2 ml Vial ONE (07:12)
[2018-07-13] MEDS ORDERED: Fentanyl 100 MCG/2 ML VIAL ONE (07:12)
[2018-07-13] MEDS ORDERED: Bivalirudin 250 MG VIAL ONE (07:12)
[2018-07-13] MEDS ORDERED: Clopidogrel Bisulfate 300 MG TAB ONE (07:41)
[2018-07-13] MEDS ORDERED: Atropine Sulfate 1 mg/10 ml Syringe ONE ×2 (07:41→08:10)
[2018-07-13] MEDS ORDERED: Ondansetron PF 4 MG/2 ML Vial ONE (08:04)
[2018-07-13] MEDS ORDERED: DOPamine 400 MG/D5W 250 ML 250 ML ONE (08:05)
[2018-07-13] MEDS ORDERED: EPINEPHrine 1 MG/10 ML Abboject SYRINGE ONE ×4 (08:25→10:00)
[2018-07-13] MEDS ORDERED: EPINEPHrine 1 MG/ML AMP ONE (08:42)
[2018-07-13] MEDS ORDERED: Rocuronium Bromide 10 MG/ML (10ML VIAL) ONE (10:00)
[2018-07-13] MEDS ORDERED: EPINEPHrine 1 mg/ml MDV (1ml Charge) ONE (10:00)
[2018-07-13] MEDS ORDERED: Sodium Bicarb 50 MEQ/50 ML Abboject 8.4% SYRINGE ONE (10:00)
[2018-07-13] MEDS ORDERED: Succinylcholine Chloride 20 MG/ML 10 ml SYRINGE FS ONE (10:00)
[2018-07-13] MEDS ORDERED: Naloxone HCl 0.4 mg/ml Vial ONE (10:00)
--- NOTE | 2018-07-13 10:41 | CCL ---
CARDIAC CATHETERIZATION REPORT: Date: 07/13/18 PROCEDURE: Drug-eluting stent placement in the proximal right posterior descending artery graft, mid and proxima l circumflex, left main. INDICATION: Severe coronary artery disease with cardiac surgery, declining a redo CABG. DESCRIPTION OF PROCEDURE: The patient was brought to the cardiac chemical laboratory tester and the right groin was prepped and draped in the usu al fashion. Versed 1 mg and Fentanyl 25 mg given intravenously. A 6 Somali sheath was placed into the right femoral artery and Angiomax bolus and drip were given. A 6 Somali Multipurpose guide catheter was inserted and an extra support wire was advanced into the right posterior descending artery graft. The area was predilated with Emerge 3.0 x 20 mm balloon. This was then removed. Synergy 4.0 x 20 mm stent was then positioned and deployed. The area was postdilated with Emerge NC 5.5 x 8 mm balloon. F inal result was excellent. The Multipurpose guide was removed and a 6 Somali left-4 guide was inserted which did not engage the left main well. This was removed and a 3.5 guide catheter was used. Extra support wire was inserted i nto the proximal circumflex. There was difficulty in advancing into the proximal circumflex and prefe rentially the wire would not go into a ramus branch. Finally, this was directed into the proximal cir cumflex and then the mid circumflex lesion was crossed. Using an Emerge 1.2 x 20 mm balloon, the prox imal circumflex and mid circumflex lesions were predilated. The patient did have some bradycardia and atropine 1 mg was given and a Dopamine drip was started. The 1.2 mm balloon was removed and Emerge 3 .0 x 20 mm balloon was then inserted to predilate the proximal and mid circumflex. This was removed a nd Synergy 3.0 x 12 mm stent was then positioned in the mid circumflex, with excellent results. The p atient did become progressively hypotensive and was given epinephrine IV. CPR was started for a short period of time. CPR could be stopped with adequate blood pressure. Then, in the proximal circumflex, a Synergy 3.0 x 12 mm stent was positioned and deployed. In the left main, Synergy 4.0 x 16 mm stent was positioned and deployed. Again, the patient had progressive hypotension and was given epinephrin e and CPR was started. The left main stent was postdilated with a 5.0 mm balloon; however, this never could be obtained as the patient required CPR. There was difficult intubation. Eventually, she was i ntubated and blood gasses were obtained. During the code, she was given epinephrine every 3-4 minutes , but continued to have pulseless electrical activity. At 0915 hours, she was pronounced .
[2018-07-13] MEDS ORDERED: Iopamidol 370 76% 50 ML VIAL FS ONE (11:57)
[2018-07-13] MEDS ORDERED: Iopamidol 370 76% 100 ML VIAL ONE (11:57)
[2018-07-13 12:21] LABS: Actual Bicarbonate (HCO3a) 9.3 mEq/L (22-28); Analyzer IN Cardio OR; Base Excess (BEa) -17.2 mEq/L (-2.0 to +3.0); Calcium, Ionized 0.71 mmol/L (1.12-1.30); Carboxyhemoglobin (COHb) 0.7 gm% (0.0-3.0); Hemoglobin (Hb) 6.9 g/dL (12.0-16.0); O2 Tension (PaO2) 244.9 mmHg (> 70.0); Potassium - ABG Lab 3.83 mmol/L (3.70-5.30)
[2018-07-13 12:22] LABS: CO2 Tension 24.1 mmHg (35.0-45.0)
[2018-07-13 12:23] LABS: Analyzer IN Cardio OR; Base Excess (BEa) -3.7 mEq/L (-2.0 to +3.0); Calcium, Ionized 1.52 mmol/L (1.12-1.30); Carboxyhemoglobin (COHb) 0.9 gm% (0.0-3.0); Hemoglobin (Hb) 6.7 g/dL (12.0-16.0); O2 Tension (PaO2) 299.3 mmHg (> 70.0); Potassium - ABG Lab 4.36 mmol/L (3.70-5.30)
[2018-07-13 12:23] LABS: ALV-art Gradient 437.975 (0-20); Puncture Site RFA
[2018-07-13 12:24] LABS: ALV-art Gradient 382.825 (0-20); CO2 Tension 24.7 mmHg (35.0-45.0); Puncture Site RFA
--- NOTE | 2018-07-13 16:05 | DIS ---
DATE OF ADMISSION: 07/09/2018 DATE OF DISCHARGE: 07/13/2018 Ms. Schroeder went to the greenskeeper laborer this morning. I actually happened to be walking by the greenskeeper laborer when a code was called. I attended the code. With difficulty, she was intubated. She was bag-mask ventilated until she was intubated with chest compressions in place. In spite of a high-dose epinephrine drip and multiple rounds of epinephrine for over 30 minutes, the code was unsuccessful. Blood gases were done during the code, which showed adequate oxygenation and adequate pH control. Unfortunately, the code was unsuccessful. She was pronounced at 0915 hours. There was a great deal of difficulty locating family today. Job ID: [id number]
--- NOTE | 2018-07-13 23:10 | DIS ---
DATE OF ADMISSION: 07/09/2018 DATE OF DISCHARGE: 07/13/2018 SUMMARY ADMISSION DIAGNOSES: 1. Atrial fibrillation with rapid ventricular response. 2. Congestive heart failure exacerbation the time of , cardiopulmonary arrest during the cardiac catheterization and stent placement procedure. 3. Severe coronary artery disease with cardiac surgery and declining redo CABG, type 2 myocardial infarction. 4. Atrial fibrillation with rapid ventricular response, resolved. 5. Anemia of renal disease, chronic. 6. Anxiety and depression. 7. Dyslipidemia. 8. End-stage renal disease for the last 9 years. 9. Hypertension. CONSULTANTS: 1. Dr. Be Mills, Cardiology Service. 2. Dr. Maurisio Mercer, Nephrology Service. 3. Dr. Del Coello, Pulmonary/Critical Care Service. 4. Dr. Sebastian Medina, Cardiology Service. PROCEDURE: Cardiac catheterization. IMAGES: Echocardiogram which showed, 1. Ejection fraction estimated at 35% to 40%. 2. Hypokinetic motion of the inferior wall noted in the left ventricle. 3. Severe mitral regurgitation. 4. Moderately thickened trileaflet aortic valve with decreased excursion. 5. Mild to moderate aortic regurgitation. 6. Moderate aortic stenosis. 7. Moderate tricuspid regurgitation. drug-eluting stent placement in the proximal right posterior descending artery and graft, mid and proximal circumflex left main. HOSPITAL COURSE: The patient was a 72-year-old female, sick for approximately 1 week with some shortness of breath and she did not come to the emergency room for further evaluation. She went to Dr. Lopez's office at [facility] and was advised to go to the emergency room. She did not have any fever. No cough. No chest pain. She was evaluated in the emergency room and she was found to be in normal sinus rhythm, but she converted to atrial fibrillation with rapid ventricular response. Echocardiogram in August 2017 showed LVEF of 50% to 55% with moderate mitral regurgitation and aortic valve sclerosis. She had CABG done in [address] Ricardo with three vessels, AGARWAL to LAD, saphenous vein graft to OM, and calcified PDA. The patient was on peritoneal dialysis for approximately 9 years. During emergency room evaluation, her white count was up to 11,000, hemoglobin was 8.5, hematocrit 26, platelet count 238. INR, PT, and PTT were within normal limits. Serum bicarb 28, potassium 3.6, BUN 44, creatinine 13.9. Troponin I was elevated at 4.42, CK-MB 4.4, and BNP was 3786. Chest x-ray showed mild pulmonary vascular congestion with cardiomegaly and electrocardiogram on arrival was normal sinus rhythm with 84 beats per minute with signs of LVH and around 1230 the patient went into atrial fibrillation with RVR around 146 beats per minute. The patient was admitted to [facility] for atrial fibrillation with RVR and congestive heart failure exacerbation. She was on Cardizem drip 5 mg/hour to control her rate. She was given aspirin and Coreg. She was continued on Lipitor, Xanax, sertraline, sevelamer, and Sensipar. Consultation with Dr. Mills was requested and consultation with Dr. Mercer, digital media planner was requested too. The patient was placed on peritoneal dialysis sessions by Dr. Mercer. Dr. Mills reviewed her old medical records. Her 2nd troponin I came back elevated at 4.324, engine assembly supervisor made decision about cardiac catheterization which was done which showed a severe coronary artery disease and apparently the patient did not want to have any additional surgical intervention done at this point and she was taking again the next day to forestry laborer to treat her with stents and during this procedure, she coded, she was resuscitated unsuccessfully and she was pronounced at 9:15. Job ID: [id number]
--- NOTE | 2018-07-17 13:52 | EKG ---
Test Reason : SOB Blood Pressure : / mmHG Vent. Rate : 084 BPM Atrial Rate : 084 BPM P-R Int : 138 ms QRS Dur : 104 ms QT Int : 422 ms P-R-T Axes : 044 001 148 degrees QTc Int : 498 ms Normal sinus rhythm Left ventricular hypertrophy with repolarization abnormality Prolonged QT Abnormal ECG Confirmed by PHU PAZ DO ([id number]), newspaper or periodical editor TRAV SANFORD ([id number] on 07/17/2018 1:51:52 PM Referred By: Confirmed By:PHU PAZ DO
== END 2018-07-13 10:00 | disposition expired | DRG 246 ==
LOC: ERS 16:19 → IMCU/EMU 23:46
PROVIDERS: ADMIT Family Medicine; ATTEND Family Medicine
PROC: 4A023N7 Measurement of Cardiac Sampling and Pressure, Left Heart, Percutaneous Approach (ICD-10-PCS; 2018-07-12)
PROC: B2131ZZ Fluoroscopy of Multiple Coronary Artery Bypass Grafts using Low Osmolar Contrast (ICD-10-PCS; 2018-07-12)
PROC: B2111ZZ Fluoroscopy of Multiple Coronary Arteries using Low Osmolar Contrast (ICD-10-PCS; 2018-07-12)
PROC: 027237Z Dilation of Coronary Artery, Three Arteries with Four or More Drug-eluting Intraluminal Devices, Percutaneous Approach (ICD-10-PCS; principal; 2018-07-13)
PROC: 02C03ZZ Extirpation of Matter from Coronary Artery, One Artery, Percutaneous Approach (ICD-10-PCS; 2018-07-13)
PROC: 3E033XZ Introduction of Vasopressor into Peripheral Vein, Percutaneous Approach (ICD-10-PCS; 2018-07-13)
PROC: 5A12012 Performance of Cardiac Output, Single, Manual (ICD-10-PCS; 2018-07-13)
PROC: 0BH17EZ Insertion of Endotracheal Airway into Trachea, Via Natural or Artificial Opening (ICD-10-PCS; 2018-07-13)
DX: I13.2 Hypertensive heart and chronic kidney disease with heart failure and with stage 5 chronic kidney disease, or end stage renal disease (principal); N18.6 End stage renal disease; I21.A1 Myocardial infarction type 2; I50.33 Acute on chronic diastolic (congestive) heart failure; N25.81 Secondary hyperparathyroidism of renal origin; I25.810 Atherosclerosis of coronary artery bypass graft(s) without angina pectoris; I97.710 Intraoperative cardiac arrest during cardiac surgery; I97.190 Other postprocedural cardiac functional disturbances following cardiac surgery; I48.0 Paroxysmal atrial fibrillation; I95.9 Hypotension, unspecified; E11.22 Type 2 diabetes mellitus with diabetic chronic kidney disease; E78.5 Hyperlipidemia, unspecified; D63.1 Anemia in chronic kidney disease; E87.6 Hypokalemia; I34.0 Nonrheumatic mitral (valve) insufficiency; I07.1 Rheumatic tricuspid insufficiency; I35.0 Nonrheumatic aortic (valve) stenosis; E83.39 Other disorders of phosphorus metabolism; F41.9 Anxiety disorder, unspecified; F32.9 Major depressive disorder, single episode, unspecified; Y84.0 Cardiac catheterization as the cause of abnormal reaction of the patient, or of later complication, without mention of misadventure at the time of the procedure; Y92.238 Other place in hospital as the place of occurrence of the external cause; Z99.2 Dependence on renal dialysis; Z95.1 Presence of aortocoronary bypass graft; I25.2 Old myocardial infarction; Z79.899 Other long term (current) drug therapy; Z95.5 Presence of coronary angioplasty implant and graft; Z82.49 Family history of ischemic heart disease and other diseases of the circulatory system
CPT/HCPCS: 36415; 36416; 71045; 80048; 80053; 80061; 80069; 82553; 82805; 83880; 84443; 84484; 85007; 85014; 85018; 85025; 85027; 85049; 85347; 85610; 85730; 87324; 87449; 90945; 92928; 92929; 92937; 93005; 93306; 93454; 93459; 93798; 94760; 96365; 96366; 99152; 99153; C1725; C1769; C1874; C1887; C9600; C9601; C9604; G0257; J0171; J0282; J0461; J0583; J1160; J1265; J1644; J2250; J2310; J2405; J3010; J7050; Q4081; Q9967